=== PATIENT | female | born 1945 | race Caucasian/White ===

== ENCOUNTER 2019-11-24 09:57 | Outpatient (CLI) | payer MEDICARE, OTHER, SELFPAY ==
--- NOTE | 2019-11-24 10:15 | USCV_ITS ---
Kelsey Tuttle Age: 74 Gender: F : 1945 Exam Date: 11/24/2019 10:40 Ordering Phys: Ly Pantoja Technologist: BRUNO RICHARDSON [place]am Location: [facility] [place] Indication: HISTORY: PATIENT HAD ABLATION DONE 2017. POSSIBLE ACCESSORY VEIN NOTED ON LEFT LOWER EXTREMITY. PROCEDURES: FINDINGS: There is no evidence of bilateral deep vein thrombosis. No evidence of superficial thrombosis in the bilateral saphenous system. No evidence of reflux was noted in the bilateral deep venous system. No venous reflux noted in the bilateral greater saphenous vein. No venous reflux noted in the bilateral small saphenous vein. CONCLUSIONS No evidence of DVT in the above-mentioned identifiable veins. No significant venous reflux either in the superficial or deep veins. The venous segments were of small caliber at the below-knee levels, bilaterally. Dr Kameron Muller MD FAC (Electronically Signed) Final Date: 25 November 2019 20:17 S
== END 2019-11-24 09:58 | disposition home or self-care (01) ==
LOC: US 09:59
PROVIDERS: Visit Provider Nurse Practitioner Family
DX: R60.0 Localized edema (principal)
CPT/HCPCS: 93970

== ENCOUNTER 2019-12-28 08:01 | Outpatient (CLI) | payer MEDICARE, OTHER, SELFPAY ==
--- NOTE | 2019-12-28 08:00 | USCV_ITS ---
TuttleKelsey Age: 74 Gender: F : 1945 Exam Date: 12/28/2019 08:26 Ordering Phys: Ly Pantoja Technologist: Exam Location: [facility] – [place]_ Indication: PAD Risk Factors: None Previous Vascular Surgery: None RIGHT LEFT BP: 184.0 / 80.00 BP: 164.0/ 80.00 0 0 Waveform Velocity (cm/s) Velocity (cm/s) Waveform Triphasic 141.2 Iliac Prox 148.1 Triphasic Triphasic 130.3 Iliac Mid 122.2 Triphasic Triphasic 123.1 Iliac Distal 122.2 Triphasic Triphasic 132.2 STITCH BONDING MACHINE TENDER HELPER 142.2 Triphasic Triphasic 173.8 SFA Prox 135.8 Triphasic Triphasic 153.9 SFA Mid 153.4 Triphasic Triphasic SFA Dist Triphasic 161.1 115.0 Triphasic 105.0 POP 102.5 Triphasic Biphasic 59.2 PARAPROFESSIONAL EDUCATION ASSISTANT 54.3 Biphasic Biphasic 70.4 DPA 54.3 Biphasic 1.0 PAM 1.0 FINDINGS Normal resting ABIs bilaterally Near normal arterial Doppler waveforms bilaterally Near normal Doppler flow velocities bilaterally CONCLUSIONS No significant arterial obstruction, based on the above findings Dr Kameron Muller MD [facility] (Electronically Signed) Final Date: 28 December 2019 19:03 S
[2019-12-28 09:53] LABS: Blood Urea Nitrogen 16 mg/dL (8-23); Calcium 9.8 mg/dL (8.5-10.5); Carbon Dioxide 26 mmol/L (22-29); Chloride 99 mmol/L (98-107); Glucose 211 mg/dL (65-115); Osmolality Calculated 287 mOsm/kg (285-295); Sodium 135 mmol/L (136-145)
[2019-12-28 09:59] LABS: Anion Gap 14.2 (5-19); Potassium 4.2 mmol/L (3.5-5.1)
== END 2019-12-28 08:02 | disposition home or self-care (01) ==
LOC: RAD 08:11
PROVIDERS: Visit Provider Nurse Practitioner Family
DX: I73.9 Peripheral vascular disease, unspecified (principal)
CPT/HCPCS: 36415; 80048; 93925

== ENCOUNTER → 2020-01-26 11:13 | Outpatient (BNVA) | payer MEDICARE, OTHER, SELFPAY | PROVIDERS: PCP Family Medicine; Visit Provider Nurse Practitioner Family | DX: N18.32 Chronic kidney disease, stage 3b (principal); I73.9 Peripheral vascular disease, unspecified | CPT/HCPCS: 80048 ==

== ENCOUNTER → 2020-02-01 11:34 | Outpatient (BNVA) | payer MEDICARE, OTHER, SELFPAY | PROVIDERS: PCP Family Medicine; Visit Provider Internal Medicine Cardiovascular Disease | DX: N18.32 Chronic kidney disease, stage 3b (principal) | CPT/HCPCS: 80048 ==

== ENCOUNTER 2020-04-02 14:13 | Inpatient (IN) | payer MEDICARE, OTHER, SELFPAY ==
--- NOTE | 2020-04-02 14:40 | XR_ITS ---
WS: [id number] PORTABLE CHEST HISTORY: dyspnea COMPARISON: 01/16/2009 Bilateral opacifications in the mid and lower lung suero. Slightly greater opacification in the cent ral LEFT lung. No pleural effusion or pneumothorax. Cardiac size: Mildly enlarged cardiac silhouette. Mediastinum/Aorta: Mild atherosclerosis aorta. Osteopenia. XR/XR chest 1V portable [id number] IMPRESSION: Bilateral mid to lower lung opacifications likely pneumonia.
[2020-04-02 14:53] VITALS: BP 140/59; PULSE 104; RESP 22; TEMP 36.5; O2SAT 83; BMI 38.9
[2020-04-02 14:58] VITALS: O2SAT 95
--- NOTE | 2020-04-02 15:03 | W.ED.COVID ---
HPI - COVID General: Chief Complaint: ER Hold Stated Complaint: COVID +, LOW OXYGEN LEVELS Time Seen by Provider: 04/02/20 14:40 Triage information: Has fever, cough or shortness of breath. Exposure to COVID + person last 14 days History of Present Illness: HPI Narrative: 63 yo female presents emergency room complaining of worsening shortness of breath. Oxygen saturations on arrival are 83% on room air. She has fatigue body ache chest pain cough fever x1 week she initially tested positive on 03/31/2020. States she usually is not on oxygen and is progressively had more and more shortness of breath to the point when she arrives here today she is requiring 6 L and still struggling to keep her oxygen levels at 90%. She denies any chest pain. She initially had some diarrhea but she is not had much for intake so that has decreased as well. MD complaint: known COVID positive Prior testing date: 03/31/20 COVID 19 common symptoms: positive fever(s), chills, cough, non-productive cough, dyspnea, fatigue, body aches, nasal congestion, nausea, vomiting and diarrhea COVID 19 other sytmptoms: positive requiring oxygen; negative chest pain Onset (ago): day(s) Severity: moderate Pertinent comorbid conditions: diabetes, hypertension, heart disease and COPD/respiratory disease Treatment prior to arrival: acetaminophen, ibuprofen and steroids COVID Results: No Data to Display Review of Systems Const: Reports: fever(s), chills, body aches and fatigue ENMT: Reports: nasal congestion Card: Denies: chest pain, edema, dyspnea on exertion or orthopnea Resp: Reports: dyspnea and non-productive cough GI: Reports: nausea, vomiting and diarrhea : Denies: flank pain, difficulty voiding, dysuria, urinary frequency or urinary urgency Skin/Breast: Denies: rash or pruritus PFSH ED PFSH: Medical History Carotid artery stenosis Chronic kidney disease (CKD) stage G3b/A1, moderately decreased glomerular filtration rate (GFR) between 30-44 mL/min/1.73 square meter and albuminuria creatinine ratio less than 30 mg/g Diabetes mellitus GERD (gastroesophageal reflux disease) Hyperkalemia Hospitalized at [facility] for potassium 6.9, spironolactone discontinued, GFR 36. IBS (irritable bowel syndrome) LBBB (left bundle branch block) Osteoporosis PVD (peripheral vascular disease) Varicose veins of left lower extremity with other complications Surgical History S/P cataract extraction S/P cholecystectomy S/P hysterectomy S/P knee surgery Right Family History Brother CAD (coronary artery disease) Mother CAD (coronary artery disease) Denies family history of Diabetes Clotting disorder Dementia Hyperlipidemia Psychiatric illness Chronic kidney disease (CKD) Suicide Anesthesia complication Bleeding disorder Family history of premature coronary artery disease Lung disease Cancer Hypertension Stroke Social History Smoking and tobacco status: never smoked Alcohol intake: never Physical Exam Const: GENERAL APPEARANCE: cooperative and comfortable ORIENTATION/CONSCIOUSNESS: Yes awake, Yes oriented to person, Yes oriented to place and Yes oriented to time HENMT: COMMON NORMALS: normocephalic, atraumatic and hearing grossly normal bilaterally HEAD & SCALP: normocephalic and atraumatic Neck/C-Spine: COMMON NORMALS: no JVD Resp: AUSCULTATION: rales, rhonchi and wheezes Cardio: COMMON NORMALS: no JVD, regular rhythm and No murmurs present (Cardio) RATE: tachycardic RHYTHM: regular rhythm GI: COMMON NORMALS: Soft to palpation and No hepatosplenomegaly present AUSCULTATION: Yes normoactive bowel sounds PALPATION: Yes Soft to palpation, No Tenderness to palpation present (GI), No Guarding due to palpation present (GI) and Yes No hepatosplenomegaly present Extremity: COMMON NORMALS: normal to inspection, capillary refill normal, no clubbing, cyanosis or edema, no calf tenderness and no pedal edema Neuro: SENSORIUM/ORIENTATION: Yes oriented to person, Yes oriented to place and Yes oriented to time Skin: COMMON NORMALS: no rashes or lesions noted GENERAL SKIN EXAM: no rashes or lesions noted Course Vital Signs: Vital signs: Vital Signs Temperature 98.1 F 04/04/20 03:51 Pulse Rate 120 H 04/04/20 06:06 Respiratory Rate 24 H 04/04/20 06:06 Blood Pressure 107/59 04/04/20 02:45 Pulse Oximetry 95 04/04/20 06:06 MDM - COVID MDM Narrative: Medical decision making narrative: Patient will require ICU admission. Will make attempts to admit to our VICU however the VICU iis quite full at the moment. I discussed Dr. Kidd is willing to take the patient working to find a bed space in the VQ. I am not comfortable with her being on the floor at this point I think she most likely will continue to progress and will require aggressive interventions in the near future. Start her on remdesivir and steroids. Lab Data: Labs: Lab Results 04/02/20 04/02/20 04/02/20 Range/Units 14:40 14:40 14:40 WBC Cancelled Corrected WBC Cancelled RBC Cancelled Hgb Cancelled Hct Cancelled MCV Cancelled MCH Cancelled MCHC Cancelled RDW Cancelled Plt Count Cancelled MPV Cancelled Gran % Cancelled Neut % (Auto) Cancelled Lymph % (Auto) Cancelled [place] % (Auto) Cancelled Eos % (Auto) Cancelled Baso % (Auto) Cancelled Neut # (Auto) Cancelled Lymph # (Auto) Cancelled [place] # (Auto) Cancelled Eos # (Auto) Cancelled Baso # (Auto) Cancelled Absolute Gran (aut o) Cancelled Nucleated RBC % (a uto) Cancelled Nucleated RBCs # Cancelled D-Dimer 5.42 H (0-0.59) ug/mIFE U Specimen Type Sample Site ABG pH (7.35-7.45) ABG pCO2 (35-45) mmHg ABG pO2 (80.0-100.0) mmH g ABG HCO3 (22-26) mmol/L ABG O2 Saturation ABG Base Excess (-2.0-2.0) mmol/ L Bruce Test A-a O2 Gradient (5-10) mmHg Hematocrit (37-47) % Hgb O2 Saturation (95-100) % Carboxyhemoglobin (0.4-20.1) %THgb Methemoglobin (0.4-1.5) % Total Hemoglobin (12-16) g/dL Ionized Calcium (1.1-1.4) mmol/L O2 Delivery Device O2 Liters/Min % FiO2 % Neurology Epilepsy Physician ID Sodium 130 L (136-145) mmol/L Potassium 3.9 (3.5-5.1) mmol/L Chloride 97 L (98-107) mmol/L Carbon Dioxide 20 L (22-29) mmol/L Anion Gap 16.9 (5-19) BUN 28 H (8-23) mg/dL Creatinine 1.5 H (0.5-0.9) mg/dL GFR Calculation Not Reportable Glucose 198 H (65-115) mg/dL Calculated Osmolal ity 281 L (285-295) mOsm/k g Lactic Acid (0.5-2.2) mmol/L Calcium 8.8 (8.5-10.5) mg/dL Total Bilirubin 0.3 (0.15-1.2) mg/dL AST 33 H (0-32) U/L ALT 32 (0-33) U/L Alkaline Phosphata se 79 (35-105) IU/L C-Reactive Protein 43.0 H (0.0-4.9) mg/L Total Protein 6.6 (6.6-8.7) g/dL Albumin 3.1 L (3.5-5.2) g/dL Globulin 3.5 (1.3-4.6) g/dL 04/02/20 04/02/20 04/02/20 Range/Units 15:22 16:00 16:00 WBC 13.7 H Corrected WBC RBC 4.16 Hgb 12.8 Hct 38.3 MCV 92.1 MCH 30.8 MCHC 33.4 RDW 11.9 L Plt Count 280 MPV 8.5 Gran % Neut % (Auto) 93.8 Lymph % (Auto) 2.8 [place] % (Auto) 2.6 Eos % (Auto) 0.0 Baso % (Auto) 0.1 Neut # (Auto) 12.87 H Lymph # (Auto) 0.4 L [place] # (Auto) 0.4 Eos # (Auto) 0.0 Baso # (Auto) 0.0 Absolute Gran (aut o) Nucleated RBC % (a uto) 0 Nucleated RBCs # 0.0 D-Dimer (0-0.59) ug/mIFE U Specimen Type Arterial Sample Site Radial, left ABG pH 7.42 (7.35-7.45) ABG pCO2 32.1 L (35-45) mmHg ABG pO2 73.3 L (80.0-100.0) mmH g ABG HCO3 20.6 L (22-26) mmol/L ABG O2 Saturation 96.0 ABG Base Excess -3.1 L (-2.0-2.0) mmol/ L Bruce Test Pos A-a O2 Gradient 77.9 H (5-10) mmHg Hematocrit 43.4 (37-47) % Hgb O2 Saturation 94.6 L (95-100) % Carboxyhemoglobin 1.0 (0.4-20.1) %THgb Methemoglobin 0.4 (0.4-1.5) % Total Hemoglobin 14.1 (12-16) g/dL Ionized Calcium 1.2 (1.1-1.4) mmol/L O2 Delivery Device Nrb O2 Liters/Min 15.0 % FiO2 100.0 % Neurology Epilepsy Physician ID Ed Sodium 134.0 (136-145) mmol/L Potassium 4.1 (3.5-5.1) mmol/L Chloride (98-107) mmol/L Carbon Dioxide (22-29) mmol/L Anion Gap (5-19) BUN (8-23) mg/dL Creatinine (0.5-0.9) mg/dL GFR Calculation Glucose 195.0 H (65-115) mg/dL Calculated Osmolal ity (285-295) mOsm/k g Lactic Acid 1.8 (0.5-2.2) mmol/L Calcium (8.5-10.5) mg/dL Total Bilirubin (0.15-1.2) mg/dL AST (0-32) U/L ALT (0-33) U/L Alkaline Phosphata se (35-105) IU/L C-Reactive Protein (0.0-4.9) mg/L Total Protein (6.6-8.7) g/dL Albumin (3.5-5.2) g/dL Globulin (1.3-4.6) g/dL COVID Results: No Data to Display Discharge Plan Discharge Patient Disposition: Admitted As Inpatient Admit Provider: Janeth Kidd Clinical Impression: Pneumonia due to 2019-nCoV, Diabetes mellitus, Chronic kidney disease (CKD) stage G3b/A1, moderately decreased glomerular filtration rate (GFR) between 30-44 mL/min/1.73 square meter and albuminuria creatinine ratio less than 30 mg/g Condition: Stable Coding Level of Care Code ED Arranger Assembler for g Fwd Exam Comprehensive
[2020-04-02 15:28] LABS: ABG PCO2 32.1 mmHg (35-45); ABG PH Result 7.42 (7.35-7.45); Arterial Blood Gas Hematocrit 43.4 % (37-47); Base Excess ABG -3.1 mmol/L (-2.0-2.0); Blood Gas Allen Test Pos; Blood Gas Sample Type Arterial; HCO3 ABG 20.6 mmol/L (22-26); HGB O2 Sat 94.6 % (95-100); Ionized Calcium Level - ABG 1.2 mmol/L (1.1-1.4); Methemoglobin 0.4 % (0.4-1.5); PO2 ABG 73.3 mmHg (80.0-100.0); Potassium Level - ABG 4.1 mmol/L (3.5-5.0); Total Hemoglobin 14.1 g/dL (12-16)
[2020-04-02 15:30] LABS: Alveolar-Arterial Oxygen Gradi 77.9 mmHg (5-10); Blood Gas Operator Identificat ED; Blood Gas Sample Site Radial, left; Oxygen Device NRB
[2020-04-02 15:42] LABS: Alanine Aminotransferase 32 U/L (0-33); Albumin Level 3.1 g/dL (3.5-5.2); Alkaline Phosphatase 79 IU/L (35-105); Anion Gap 16.9 (5-19); Aspartate Amino Transferase 33 U/L (0-32); Blood Urea Nitrogen 28 mg/dL (8-23); Calcium 8.8 mg/dL (8.5-10.5); Carbon Dioxide 20 mmol/L (22-29); Chloride 97 mmol/L (98-107); Globulin 3.5 g/dL (1.3-4.6); Glucose 198 mg/dL (65-115); Osmolality Calculated 281 mOsm/kg (285-295); Potassium 3.9 mmol/L (3.5-5.1); Sodium 130 mmol/L (136-145); Total Bilirubin 0.3 mg/dL (0.15-1.2); Total Protein 6.6 g/dL (6.6-8.7)
[2020-04-02 15:46] LABS: D Dimer 5.42 ug/mIFEU (0-0.59)
--- NOTE | 2020-04-02 16:04 | CTR_ITS ---
PROCEDURE INFORMATION: Exam: CT Angiography Chest With Contrast Exam date and time: 04/02/2020 5:38 PM Age: 74 years old Clinical indication: Shortness of breath; Additional info: Elevated d dimer TECHNIQUE: Imaging protocol: Computed tomographic angiography of the chest with intravenous contrast. 3D rendering (Not supervised by radiologist): MIP and/or 3D reconstructed images were created by the technologist. Total images: 860 Radiation optimization: All CT scans at this facility use at least one of these dose optimization techniques: automated exposure control; mA and/or kV adjustment per patient size (includes targeted exams where dose is matched to clinical indication); or iterative reconstruction. Contrast material: VISI 320; Contrast volume: 55 ml; Contrast route: INTRAVENOUS (IV); COMPARISON: CR XR chest 1V portable [id number] 04/02/2020 2:44 PM RADIATION DOSE METRICS: Total DLP (mGy-cm): 571.23 FINDINGS: Pulmonary arteries: No visible evidence of pulmonary embolism/pulmonary arterial thrombus. Aorta: The thoracic aorta is nonaneurysmal. Mild arterial sclerotic disease. No visible intimal flap or dissection. Lungs: Bilateral patches of ground-glass interstitial lung disease with evidence of early consolidation consistent with active interstitial pneumonitis/pneumonia. Overall pattern presentation would be consistent with Covid-19 pneumonitis/pneumonia in the appropriate clinical presentation. Pleural space: Unremarkable. No pneumothorax. No pleural effusion. Heart: Cardiomegaly. No visible pericardial effusion. Mild coronary artery disease. Mediastinal space: Diaphragmatic hernia of Bochdalek's containing a large hiatal hernia. Lymph nodes: Few marginally prominent mediastinal and hilar lymph nodes most likely reactive. Adrenals: Small 12 mm left adrenal adenoma. No follow-up recommended. Right adrenal gland unremarkable. Kidneys and ureters: Small 10 mm extra cortical structure superior pole right kidney. Unable to differentiate cystic from solid. Consideration might be given to non urgent/nonemergent follow-up ultrasound of the kidney to assess cyst versus solid. There is a small simple appearing cyst at the equator measuring approximately 10 mm. Bones/joints: No visible active or acute osseous pathology. Degenerative disease and degenerative disc disease of the spine with increased kyphosis and osteopenia/osteoporosis. Soft tissues: Obesity. Other findings: Obesity. Increased quantum mottle artifact which degrades image quality in detail. CT/CT angio chest PE protcl [id number] IMPRESSION: 1. No visible evidence of pulmonary embolism/pulmonary arterial thrombus. 2. Bilateral patches of ground-glass interstitial lung disease with evidence of early consolidation consistent with active interstitial pneumonitis/pneumonia. Overall pattern presentation would be consistent with Covid-19 pneumonitis/pneumonia in the appropriate clinical presentation. 3. Small 12 mm left adrenal adenoma. No follow-up recommended. 4. Diaphragmatic hernia of Bochdalek's containing a large hiatal hernia. 5. Few marginally prominent mediastinal and hilar lymph nodes most likely reactive. 6. Cardiomegaly with mild coronary artery disease. 7. Small 10 mm extra cortical structure superior pole right kidney. Unable to differentiate cystic from solid. Consideration might be given to non urgent/nonemergent follow-up ultrasound of the kidney to assess cyst versus solid. 8. Other nonurgent, nonemergent, chronic, and age related findings as detailed in text above. COMMENTS: Consistent with the [employer]'s Incidental Findings Committee white paper (J Am Rose Radiol 2018): Any incidental renal lesion less than 1 cm or classified as too small to characterize, or any incidental cystic renal lesion characterized as simple-appearing, is likely benign. No follow-up imaging is recommended for these lesions per consensus recommendations based on imaging criteria. Radiation Dose CTDIVOL = (mGy): DLP = 571.23 (mGy-cm)
[2020-04-02 16:07] LABS: Basophils % 0.1 %; Hematocrit 38.3 % (37.0-47.0); Hemoglobin 12.8 g/dL (11.5-15.3); Lymphocytes # 0.4 10^3/uL (0.8-4.8); Lymphocytes % 2.8 %; Mean Corpuscular HGB Conc 33.4 g/dL (30.0-36.0); Mean Corpuscular Hemoglobin 30.8 pg (28.0-34.0); Mean Corpuscular Volume 92.1 fL (81-99); Mean Platelet Volume 8.5 fL (7.4-10.4); Monocytes # 0.4 10^3/uL (0.2-0.9); Monocytes % 2.6 %; Neutrophils # 12.87 10^3/uL (1.8-7.7); Neutrophils % 93.8 %; Nucleated Red Blood Cells % 0 %; Platelet Count 280 10^3/cmm (130-400); Red Blood Count 4.16 10^6/uL (4.1-5.3); Red Cell Distribution Width 11.9 % (12.1-15.1); White Blood Count 13.7 10^3/uL (4.0-10.0)
[2020-04-02 16:34] LABS: Lactic Sepsis W/Reflex 1.8 mmol/L (0.5-2.2)
[2020-04-02] MEDS: dexamethasone 4 mg/mL INJ 6 MG IVP (17:52)
[2020-04-02] MEDS: remdesivir 200 MG in sodium chloride 0.9% (100 ml) 100 ML 100 MG IV (17:52)
[2020-04-02] MEDS: iodixanol 320 mg/mL 100mL Btl IV (18:07)
--- NOTE | 2020-04-02 18:54 | P.HP_ITS ---
Providers/Chief Complaint Primary Care Provider: Jannie Nazario DO Chief Complaint: COVID +, LOW OXYGEN LEVELS History of Present Illness 72-year-old female with a past medical history significant for hypertension, dyslipidemia, diabetes mellitus, peripheral vascular disease, carotid arterial stenosis, gastroesophageal reflux disease, irritable bowel syndrome, osteoporosis, bilateral lower extremity venous insufficiency and COVID-19 in fection diagnosed on March 31, 2020 who has presented to the hospital with low oxygen saturations. Patient stated that she was monitoring her O2 sats at home. Noted hypoxia with O2 sats as low as 80%. Upon arrival to hospital she was noted to be 83%. She was requiring initially 6 L via nasal cannula however then replaced with non-rebreather. This is associated with fever, chills, nausea, vomiting and generalized weakness. She also noted a mildly productive cough. Laboratory workup on arrival showed a WBC of 13.7, hemoglobin of 12.8, hematocrit 38.3 and a platelet count of 280. D-dimer was elevated at 5.42. Sodium 130, potassium 3.9, chloride 97, bicarb 20, BUN 28 and creatinine of 1.5. Prior creatinine was 1.2 in January of 2020. lactic acid of 1.8. Arterial blood gases showed a pH of 7.42, pCO2 of 32.1, PO2 of 73.3 and a bicarb of 20.6. Chest x-ray showed mid to lower lung opacification bilaterally. CT chest PE protocol showed bilateral patchy ground-glass interstitial infiltrates bilaterally with evidence of early consolidation consistent of active interstitial pneumonitis / pneumonia. No acute pulmonary embolism is noted. Patient was admitted to hospital for further work up and treatment. In ER patient was started on Decadron 6 mg IV x 1, Remdesivir 200 mg IV x 1, and loenox 100 mg SQ x 1. Review of Systems General: Reports: 10 or more systems reviewed and unremarkable except in HPI and below Medications/Allergies Home Medications Medication Instructions Recorded Confirmed Last Taken Type aspirin 81 mg tablet,delayed 81 mg PO DAILY@0900 06/19/19 04/02/20 04/01/20 History release famotidine 40 mg tablet 40 mg PO BID@0900,199906/19/19 04/02/20 04/02/20 History lansoprazole 30 mg capsule,delayed 30 mg PO DAILY@0900 06/19/19 04/02/20 04/02/20 History release meclizine 25 mg tablet 25 mg PO DAILY PRN 06/19/19 04/02/20 Unknown History ondansetron HCl 4 mg tablet 4 mg PO Q8H PRN 06/19/19 04/02/20 04/02/20 History ropinirole 5 mg tablet 5 mg PO DAILY PRN 06/19/19 04/02/20 Unknown History metoprolol succinate 50 mg 25 mg PO DAILY@0900 tab 09/12/19 04/02/20 04/02/20 History tablet,extended release 24 hr simvastatin 20 mg tablet 20 mg PO .COMPLEX 09/12/19 04/02/20 04/01/20 History meloxicam 15 mg tablet 15 mg PO DAILY PRN tab 11/06/19 04/02/20 Unknown History semaglutide 0.5 mg SUBCUT Q7D ml 11/06/19 04/02/20 04/01/20 History amlodipine 10 mg tablet 10 mg PO DAILY@0900 tab 12/19/19 04/02/20 04/02/20 History furosemide 20 mg tablet 20 mg PO DAILY@0912/19/19 04/02/20 04/02/20 History glimepiride 4 mg tablet 4 mg PO BID@0800,1999 tab 12/19/19 04/02/20 04/02/20 History lisinopril 5 mg tablet 2.5 mg PO BID@0900,1999 tab 12/19/19 04/02/20 04/02/20 History acetaminophen [Tylenol] 325 - 650 mg PO Q4H PRN 04/02/20 04/02/20 Unknown History cilostazol 50 mg PO BID@0900,199904/02/20 04/02/20 04/02/20 History doxycycline hyclate See Rx Instructions .ROUTE .COMPLEX 04/02/20 04/02/20 04/02/20 History ferrous gluconate 325 mg PO DAILY@89904/02/20 04/02/20 04/02/20 History prednisone 40 mg PO DAILY@0904/02/20 04/02/20 04/02/20 History Allergies Allergy/AdvReac Type Severity Reaction Status Date / Time No Known Allergies Allergy Verified 01/26/20 10:16 PFSH Acute PFSH: Medical History Carotid artery stenosis Chronic kidney disease (CKD) stage G3b/A1, moderately decreased glomerular filtration rate (GFR) between 30-44 mL/min/1.73 square meter and albuminuria creatinine ratio less than 30 mg/g Diabetes mellitus GERD (gastroesophageal reflux disease) Hyperkalemia Hospitalized at [facility] for potassium 6.9, spironolactone discontinued, GFR 36. IBS (irritable bowel syndrome) LBBB (left bundle branch block) Osteoporosis PVD (peripheral vascular disease) Varicose veins of left lower extremity with other complications Surgical History S/P cataract extraction S/P cholecystectomy S/P hysterectomy S/P knee surgery Right Family History Brother CAD (coronary artery disease) Mother CAD (coronary artery disease) Denies family history of Diabetes Clotting disorder Dementia Hyperlipidemia Psychiatric illness Chronic kidney disease (CKD) Suicide Anesthesia complication Bleeding disorder Family history of premature coronary artery disease Lung disease Cancer Hypertension Stroke Social History Smoking and tobacco status: never smoked Alcohol intake: never Vitals/I&O/Wt Last Vital Signs Temp 97.7 F 04/02/20 14:53 Pulse 104 H 04/02/20 14:53 Resp 22 H 04/02/20 14:53 BP 140/59 04/02/20 14:53 Pulse Ox 83 L 04/02/20 14:53 Weight last 48 hrs Weight 99.79 kg Physical Exam Narrative: EXAM NARRATIVE: General: Alert awake on NRB HEENT :Grossly unremarkable CVS: Sinus tachycardia Chest : Mildly labored respiration ABD : Soft Ext : Mild edema bilatrally Data : 04/02/20 16:00 04/02/20 14:40 A&P Assessment and plan (1) Acute respiratory failure with hypoxia: Status: Acute (2) Pneumonia due to 2019-nCoV: Status: Acute (3) Acute worsening of stage 3 chronic kidney disease: Status: Acute (4) Hyponatremia: Status: Acute (5) Leukocytosis: Status: Acute Acute hypoxic respiratory failure due to covid-19 pneumonia - COVID-19 dx on 03/31/2020 - Chest x-ray / CTA Chest - b/l ground glass opacities, no PE - Supplemental o2 as needed to maintain o2 sats above 90% - May require HFNC vs BiPAP - Will continue remdesivir 100 mg IV daily x additional 4 days - Decadron 6 mg IV daily x total 10 days - Emperically started on eliquis 2.5 mg PO BID - S/p Lovenox 100 mg SQ x 1 in ER - Rocephin 2g IV daily - Azithromycin 500 mg IV daily - Ferritin, CRP, D-Dimer, Pro-seun in AM - Repeat ABG/Chest -xray in am Acute on chronic stage 3 kidney disease - Creatinine 1.2-1.3 - Now increased to 1.5 - Repeat BMP in am - Renally dose medication - Monitor urine output GI ppx - PPI DVT ppx - Eliquis 2.5 mg PO BID Attestations Medical Necessity Statement*: Patient will likely require over 2 midnight stay in hospital for eval and treatment of acute hypoxic respiratory failure due to COVID-19 pneumonia Time Spent in Patient Care: Greater than 35 minutes (>than 50% of time spent in counselling and/or direct pt care on unit) . Coding Level of Care Code Acute Machine Icer for [facility] 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
[2020-04-02 19:21] VITALS: BP 129/49; PULSE 96; RESP 27; O2SAT 92
[2020-04-02 20:15] VITALS: PULSE 80; O2SAT 100
[2020-04-02] MEDS: famotidine 20 mg Tablet 40 MG PO (21:59)
[2020-04-02 22:09] LABS: Glucose Point of Care 435 mg/dL (70-110)
--- NOTE | 2020-04-02 23:40 | PC.NURSE ---
Patient is boarding in the emergency department at this time. Patient has been resting comfortably. Patient is on heated high flow oxygen at 12L. Patient breathing rate ranges between 21 to 22 respirations per minute, non-labored. Patient has no visible sores or skin breakdown, skin is dry. Patient is able to get up on her own but would recommend stand by assistance to bedside commode. Patient gets tired while getting up.
[2020-04-03] VITALS (193 sets, daily range): BP systolic 86–188; BP diastolic 40–104; PULSE 65–123; RESP 11–34; TEMP 36.9–37.7; O2SAT 56–98
[2020-04-03] MEDS: atorvastatin 40 mg Tablet 20 MG PO ×2 (00:02→22:42)
[2020-04-03] MEDS: cilostazol 100 mg Tablet 50 MG PO ×3 (00:02→22:44)
[2020-04-03] MEDS: enoxaparin 100 mg/mL Syringe SUBCUT (00:13)
[2020-04-03 04:42] LABS: ABG PCO2 38.6 mmHg (35-45); ABG PH Result 7.39 (7.35-7.45); Arterial Blood Gas Hematocrit 42.4 % (37-47); Base Excess ABG -1.1 mmol/L (-2.0-2.0); Blood Gas Allen Test Pos; Blood Gas Sample Site Radial, right; Blood Gas Sample Type Arterial; HCO3 ABG 23.6 mmol/L (22-26); Oxygen Device NC; PO2 ABG 72.5 mmHg (80.0-100.0)
[2020-04-03 06:31] LABS: Basophils % 0.1 %; Hematocrit 41.6 % (37.0-47.0); Hemoglobin 13.5 g/dL (11.5-15.3); Lymphocytes # 0.8 10^3/uL (0.8-4.8); Mean Corpuscular HGB Conc 32.5 g/dL (30.0-36.0); Mean Corpuscular Volume 95.4 fL (81-99); Mean Platelet Volume 8.7 fL (7.4-10.4); Monocytes # 0.5 10^3/uL (0.2-0.9); Monocytes % 3.6 %; Neutrophils # 11.36 10^3/uL (1.8-7.7); Neutrophils % 89.7 %; Nucleated Red Blood Cells % 0 %; Platelet Count 301 10^3/cmm (130-400); Red Blood Count 4.36 10^6/uL (4.1-5.3); Red Cell Distribution Width 11.9 % (12.1-15.1); White Blood Count 12.7 10^3/uL (4.0-10.0)
[2020-04-03 07:28] LABS: D Dimer 0.91 ug/mIFEU (0-0.59)
[2020-04-03 07:55] LABS: Lactate (Lactic Acid level) 1.9 mmol/L (0.5-2.2)
[2020-04-03 08:10] LABS: Estmated Average Glucose 209; Hemoglobin A1C 8.9 % (4.0-6.0)
[2020-04-03 08:22] LABS: Ferritin 1261 ng/mL (15-150)
[2020-04-03 08:36] LABS: Alanine Aminotransferase 28 U/L (0-33); Albumin Level 2.7 g/dL (3.5-5.2); Alkaline Phosphatase 70 IU/L (35-105); Aspartate Amino Transferase 28 U/L (0-32); Blood Urea Nitrogen 39 mg/dL (8-23); Calcium 8.9 mg/dL (8.5-10.5); Carbon Dioxide 15 mmol/L (22-29); Chloride 99 mmol/L (98-107); Globulin 3.6 g/dL (1.3-4.6); Glucose 282 mg/dL (65-115); Osmolality Calculated 298 mOsm/kg (285-295); Sodium 134 mmol/L (136-145); Total Bilirubin 0.2 mg/dL (0.15-1.2); Total Protein 6.3 g/dL (6.6-8.7)
[2020-04-03 08:47] LABS: Anion Gap 24.5 (5-19); Potassium 4.5 mmol/L (3.5-5.1)
[2020-04-03] MEDS: pantoprazole DR 40 mg Tablet PO (09:05)
[2020-04-03] MEDS: apixaban 5 mg Tablet 2.5 MG PO ×2 (09:05→17:42)
[2020-04-03] MEDS: amlodipine 10 mg Tablet PO (09:05)
[2020-04-03] MEDS: aspirin 81 mg EC Tablet PO (09:07)
[2020-04-03] MEDS: ondansetron 2 mg/ML SDV 2 mL 4 MG IVP (09:08)
[2020-04-03] MEDS: ferrous gluconate 324 mg Tablet PO (09:48)
[2020-04-03] MEDS: metoprolol succinate ER (24 HR) 25 mg Tablet PO (09:49)
[2020-04-03] MEDS: famotidine 20 mg Tablet 40 MG PO ×2 (09:49→22:43)
[2020-04-03] MEDS: FUROsemide 20 mg Tablet PO (09:49)
[2020-04-03 11:56] LABS: Glucose Point of Care 307 mg/dL (70-110)
--- NOTE | 2020-04-03 13:45 | PM.PN ---
Subjective Subjective: Interval history: 72-year-old female with a past medical history significant for hypertension, dyslipidemia, diabetes mellitus, peripheral vascular disease, carotid arterial stenosis, gastroesophageal reflux disease, irritable bowel syndrome, osteoporosis, bilateral lower extremity venous insufficiency and COVID-19 infection diagnosed on March 31, 2020 who has presented to the hospital with low oxygen saturations. Patient stated that she was monitoring her O2 sats at home. Noted hypoxia with O2 sats as low as 80%. Upon arrival to hospital she was noted to be 83%. She was requiring initially 6 L via nasal cannula however then replaced with non-rebreather. This is associated with fever, chills, nausea, vomiting and generalized weakness. She also noted a mildly productive cough. Laboratory workup on arrival showed a WBC of 13.7, hemoglobin of 12.8, hematocrit 38.3 and a platelet count of 280. D-dimer was elevated at 5.42. Sodium 130, potassium 3.9, chloride 97, bicarb 20, BUN 28 and creatinine of 1.5. Prior creatinine was 1.2 in January of 2020. lactic acid of 1.8. Arterial blood gases showed a pH of 7.42, pCO2 of 32.1, PO2 of 73.3 and a bicarb of 20.6. Chest x-ray showed mid to lower lung opacification bilaterally. CT chest PE protocol showed bilateral patchy ground-glass interstitial infiltrates bilaterally with evidence of early consolidation consistent of active interstitial pneumonitis / pneumonia. No acute pulmonary embolism is noted. Patient was admitted to hospital for further work up and treatment. In ER patient was started on Decadron 6 mg IV x 1, Remdesivir 200 mg IV x 1, and loenox 100 mg SQ x 1. 04/03 No sig improvement, increasing 02 requiremets Vitals/I&O/Wt Last Vital Signs Temp 98.2 F 04/04/20 00:22 Pulse 83 04/04/20 00:21 Resp 18 04/04/20 00:21 BP 188/101 04/03/20 20:05 Pulse Ox 96 04/04/20 00:21 04/03/20 04/03/20 04/04/20 14:59 22:59 06:59 Intake Total 350 / 350 300 / 650 Output Total 100 / 100 Balance 250 / 250 300 / 550 Weight last 48 hrs Weight 99.79 kg Physical Exam Narrative: EXAM NARRATIVE: General: Alert awake on NRB HEENT :Grossly unremarkable CVS: Sinus tachycardia Chest : Mildly labored respiration ABD : Soft Ext : Mild edema bilatrally Data : 04/03/20 06:12 04/03/20 06:12 A&P Assessment and plan (1) Acute respiratory failure with hypoxia: Status: Acute (2) Pneumonia due to 2019-nCoV: Status: Acute (3) Acute worsening of stage 3 chronic kidney disease: Status: Acute (4) Hyponatremia: Status: Acute (5) Leukocytosis: Status: Acute Acute hypoxic respiratory failure due to covid-19 pneumonia - COVID-19 dx on 03/31/2020 - Chest x-ray / CTA Chest - b/l ground glass opacities, no PE - Supplemental o2 as needed to maintain o2 sats above 90% - May require HFNC vs BiPAP - Will continue remdesivir 100 mg IV daily x additional 4 days - Decadron 6 mg IV daily x total 10 days - Empirically started on eliquis 2.5 mg PO BID, - S/p Lovenox 100 mg SQ x 1 in ER - Rocephin 2g IV daily - Azithromycin 500 mg IV daily - Ferritin, CRP, D-Dimer, Pro-seun in AM - Repeat ABG/Chest -xray in am Acute on chronic stage 3 kidney disease - Creatinine 1.2-1.3 - Now increased to 1.5 - 1.8 - d/c lasix, hold metoprolol - Repeat BMP in am - Renally dose medication - Monitor urine output GI ppx - PPI DVT ppx - Eliquis 2.5 mg PO BID Attestations Medical Necessity Statement*: continue hospitalization for respiratory failure Time Spent in Patient Care: Greater than 35 minutes (>than 50% of time spent in counselling and/or direct pt care on unit). Coding Level of Care Code Acute Certified Master Locksmith for [facility] Diagnoses Acute respiratory failure with hypoxia J96.01 Pneumonia due to 2019-nCoV U07.1; J12.89 Acute worsening of stage 3 chronic kidney disease N18.30 Hyponatremia E87.1 Leukocytosis D72.829
[2020-04-03] MEDS: azithromycin 500 MG in sodium chloride 0.9% 250 ML 250 MG IV (16:39)
[2020-04-03] MEDS: dexamethasone 4 mg/mL INJ 6 MG IVP (16:39)
[2020-04-03] MEDS: sodium chloride 0.9% (100 ml) 100 ML (16:40)
[2020-04-03 17:23] LABS: Glucose Point of Care 301 mg/dL (70-110)
[2020-04-03] MEDS: cefTRIAXone 2,000 MG in sodium chloride 0.9% (plus) 50 ML 100 MG IV (17:42)
[2020-04-03] MEDS: remdesivir 100 MG in sodium chloride 0.9% (100 ml) 100 ML IV (18:38)
[2020-04-03 20:46] LABS: Glucose Point of Care 211 mg/dL (70-110)
[2020-04-04] VITALS (132 sets, daily range): BP systolic 66–137; BP diastolic 42–92; PULSE 77–155; RESP 9–36; TEMP 36.7–37; O2SAT 73–97; BMI 38.9
--- NOTE | 2020-04-04 04:56 | USCV_ITS ---
Kesley Tuttle Age: 74 Gender: F : 1945 Exam Date: 04/04/2020 13:02 Ordering Phys: Stephan Sy MD Technologist: John Whitfield Exam Location: [facility] [place] Indication: new afib BP: 122 / 80 HR: 87 Rhythm: Sinus Technical Quality: Technically difficult study MEASUREMENTS (Male / Female) Normal Values 2D ECHO LV Diastolic Diameter PLAX 3.9 cm 4.2 - 5.9 / 3.9 - 5.3 cm LV Systolic Diameter PLAX 2.4 cm IVS Diastolic Thickness 1.1 cm 0.6 - 1.0 / 0.6 - 0.9 cm IVS Systolic Thickness 1.8 cm LVPW Diastolic Thickness 1.2 cm 0.6 - 1.0 / 0.6 - 0.9 cm LVPW Systolic Thickness 1.3 cm LVOT Diameter 2.0 cm LV Ejection Fraction 2D Teich 71.2 % LV Ejection Fraction MOD 2C 57.7 % LV Ejection Fraction 2C AL 56.0 % LA Diameter 3.2 cm LA Width 3.8 cm LA Height 4.3 cm RA Width 3.3 cm RA Height 4.0 cm Aorta at Sinotubular Diameter 1.1 cm M-MODE LV Diastolic Diameter MM 4.4 cm 4.2 - 5.9 / 3.9 - 5.3 cm LV Systolic Diameter MM 3.4 cm LV Ejection Fraction MM Teich 46.7 % IVS Diastolic Thickness MM 1.7 cm 0.6 - 1.0 / 0.6 - 0.9 cm IVS Systolic Thickness MM 2.0 cm LVPW Diastolic Thickness MM 1.3 cm 0.6 - 1.0 / 0.6 - 0.9 cm LVPW Systolic Thickness MM 1.6 cm RV Diastolic Diameter MM 1.6 cm Aortic Annulus Diameter 3.1 cm LA Ao Ratio MM 1.0 DOPPLER AV Peak Velocity 125.0 cm/s LVOT Peak Velocity 108.0 cm/s AV Area Cont Eq vti 3.2 cm squared AV Area Cont Eq pk 2.7 cm squared MV Area PHT 5.0 cm squared Mitral E to A Ratio 0.7 MV E' Velocity 42.5 cm/s Mitral E to MV E' Ratio 13.9 Mitral E to LV E' Lateral Ratio 11.5 Mitral E to LV E' Septal Ratio 17.8 TR Peak Velocity 153.0 cm/s TR Peak Gradient 9.4 mmHg TV Peak E Velocity 104.0 cm/s Right Atrial Pressure 3.0 mmHg Pulmonary Artery Systolic Pressu 12.4 mmHg FINDINGS Left Ventricle This is technically very difficult study. Limited visualization of cardiac structures. LV systolic function is grossly normal. Regional wall motion abnormalities cannot be assessed because of limited visualization. LV dysfunction is present. Right Ventricle Not well-visualized. Right Atrium Not well-visualized Left Atrium Not well-visualized Mitral Valve Grossly normal. No mitral regurgitation is present. Aortic Valve Not well-visualized. No significant aortic stenosis or regurgitation is seen. Tricuspid Valve Not well-visualized Pulmonic Valve Not well-visualized Pericardium Limited visualization Aorta Grossly normal CONCLUSIONS Limited visualization of cardiac structures. LV systolic function is grossly normal. Regional wall motion abnormalities cannot be assessed because of limited visualization Grade 1 diastolic dysfunction is noted. Because of limited realization of cardiac structures, comparison cannot be made with prior echocardiogram. Ezequiel Jones MD (Electronically Signed) Final Date: 05 April 2020 18:47 S
--- NOTE | 2020-04-04 04:56 | ECG_ITS ---
[facility] ED Test Date: 2020-04-04 Pat Name: Kelsey Tuttle Department: Room: ICU19 Gender: Female Biologics Specialist: : 1945 Requested By: Stephan Sy Order Number: [id number] Miguel MD: Debbie Florez M.D. Measurements Intervals [place] Rate: 118 P: WA: QRS: -11 QRSD: 132 T: 148 QT: 332 QTc: 466 Interpretive Statements SINUS TACHYCARDIA WITH frequent PACs and atrial run LEFT BUNDLE BRANCH BLOCK [120+ ms QRS DURATION, 80+ ms Q/S IN V1/V2, 85+ ms R IN I/aVL/V5/V6] INTERPRETATION BASED ON A DEFAULT AGE OF 40 YEARS No previous ECG available for comparison Electronically Signed On 04-05-2020 13:52:20 HYBRID CAR MECHANIC by Debbie Florez M.D. [id number]
[2020-04-04 05:17] LABS: Glucose Point of Care 314 mg/dL (70-110)
[2020-04-04] MEDS: metoprolol tartrate 50 mg Tablet PO ×3 (05:20→20:52)
[2020-04-04 05:23] LABS: Basophils % 0.1 %; Hemoglobin 14.5 g/dL (11.5-15.3); Lymphocytes # 0.9 10^3/uL (0.8-4.8); Lymphocytes % 5.2 %; Mean Corpuscular HGB Conc 33.7 g/dL (30.0-36.0); Mean Corpuscular Hemoglobin 30.7 pg (28.0-34.0); Mean Corpuscular Volume 90.9 fL (81-99); Mean Platelet Volume 8.9 fL (7.4-10.4); Monocytes # 0.5 10^3/uL (0.2-0.9); Monocytes % 2.8 %; Neutrophils % 91.1 %; Nucleated Red Blood Cells % 0 %; Platelet Count 428 10^3/cmm (130-400); Red Blood Count 4.73 10^6/uL (4.1-5.3); Red Cell Distribution Width 11.9 % (12.1-15.1); White Blood Count 17.2 10^3/uL (4.0-10.0)
[2020-04-04 05:33] LABS: Alanine Aminotransferase 33 U/L (0-33); Alkaline Phosphatase 82 IU/L (35-105); Anion Gap 17.4 (5-19); Aspartate Amino Transferase 34 U/L (0-32); Blood Urea Nitrogen 49 mg/dL (8-23); Calcium 9.1 mg/dL (8.5-10.5); Carbon Dioxide 22 mmol/L (22-29); Chloride 98 mmol/L (98-107); Creatinine Clr Calc Pharmacy 27.7991; Globulin 3.8 g/dL (1.3-4.6); Glucose 219 mg/dL (65-115); Osmolality Calculated 296 mOsm/kg (285-295); Potassium 4.4 mmol/L (3.5-5.1); Sodium 133 mmol/L (136-145); Total Bilirubin 0.2 mg/dL (0.15-1.2); Total Protein 6.8 g/dL (6.6-8.7)
[2020-04-04] MEDS: metoprolol tartrate 1 mg/1 mL SDV 5 mL 5 MG IV (05:59)
[2020-04-04 06:24] LABS: Troponin(5th) Baseline 27 ng/L (0-10)
[2020-04-04 06:33] LABS: Magnesium 2.1 mg/dL (1.7-2.3); Thyroid Stimulating Hormone 0.71 uIU/mL (0.27-4.20)
--- NOTE | 2020-04-04 06:56 | ECG_ITS ---
[facility] ED Test Date: 2020-04-04 Pat Name: Kelsey Tuttle Department: Room: ICU19 Gender: Female Culinary Instructor: : 1945 Requested By: Stephan Sy Order Number: [id number] Miguel MD: Debbie Florez M.D. Measurements Intervals [place] Rate: 92 P: 75 MS: 136 QRS: -15 QRSD: 135 T: 142 QT: 397 QTc: 492 Interpretive Statements SINUS RHYTHM WITH OCCASIONAL SUPRAVENTRICULAR PREMATURE COMPLEXES LEFT BUNDLE BRANCH BLOCK [120+ ms QRS DURATION, 80+ ms Q/S IN V1/V2, 85+ ms R IN I/aVL/V5/V6] Compared to ECG 04/04/2020 04:45:52 No significant change Electronically Signed On 04-05-2020 13:57:09 DIE MAKER ELECTRONIC by Debbie Florez M.D. [id number]
[2020-04-04 07:41] LABS: Glucose Point of Care 254 mg/dL (70-110)
[2020-04-04] MEDS: ferrous gluconate 324 mg Tablet PO (08:10)
[2020-04-04] MEDS: amlodipine 10 mg Tablet PO (08:10)
[2020-04-04] MEDS: cilostazol 100 mg Tablet 50 MG PO ×2 (08:10→20:52)
[2020-04-04] MEDS: apixaban 5 mg Tablet 2.5 MG PO ×2 (08:11→18:53)
[2020-04-04] MEDS: pantoprazole DR 40 mg Tablet PO (08:11)
[2020-04-04] MEDS: famotidine 20 mg Tablet 40 MG PO ×2 (08:11→20:52)
[2020-04-04] MEDS: aspirin 81 mg EC Tablet PO (08:11)
[2020-04-04] MEDS: albuterol 8 gm MDI 2 PUFF INHALATION ×3 (09:00→19:47)
[2020-04-04 09:58] LABS: Troponin 5 2HR Delta 3.1 ABS# (0-10)
--- NOTE | 2020-04-04 10:56 | ECG_ITS ---
[facility] ED Test Date: 2020-04-04 Pat Name: Kelsey Tuttle Department: Room: ICU19 Gender: Female Life Sciences Director: : 1945 Requested By: Stephan Sy Order Number: [id number] Miguel MD: Debbie Florez M.D. Measurements Intervals [place] Rate: 74 P: 79 CT: 143 QRS: -7 QRSD: 136 T: 154 QT: 399 QTc: 445 Interpretive Statements SINUS RHYTHM WITH MARKED SINUS ARRHYTHMIA LEFT BUNDLE BRANCH BLOCK [120+ ms QRS DURATION, 80+ ms Q/S IN V1/V2, 85+ ms R IN I/aVL/V5/V6] Compared to ECG 04/04/2020 07:40:00 No significant changes Electronically Signed On 04-04-2020 21:31:00 PLASTER MACHINE OPERATOR by Debbie Florez M.D. [id number]
[2020-04-04 11:12] LABS: Glucose Point of Care 122 mg/dL (70-110)
--- NOTE | 2020-04-04 11:44 | P.PN_ITS ---
Subjective Subjective: Interval history: is complaining of SOb with minimal exertion. She has remained afebrile.Her other vitals and labs have been reviewed. Medications: Reviewed: Yes Vitals/I&O/Wt Last Vital Signs Temp 98.6 F 04/04/20 08:00 Pulse 78 04/04/20 09:04 Resp 22 H 04/04/20 09:03 BP 102/77 04/04/20 08:00 Pulse Ox 91 04/04/20 09:03 04/03/20 04/04/20 04/04/20 22:59 06:59 14:59 Intake Total 400 / 750 100 / 850 240 / 240 Output Total 150 / 250 150 / 150 Balance 250 / 500 100 / 600 90 / 90 Weight last 48 hrs Weight 99.79 kg Weight 99.79 kg Physical Exam Const: COMMON NORMALS: patient oriented x3 HENMT: COMMON NORMALS: normocephalic, atraumatic and hearing grossly normal bilaterally HEAD & SCALP: normocephalic and atraumatic Chest: COMMONS NORMALS: normal inspection of the chest CHEST: Yes Symmetrical chest wall rise Resp: OTHER: Rt basal crackles present. No wheezing no ronchii Cardio: COMMON NORMALS: regular rate, regular rhythm, S1 normal heart sound present, S2 normal heart sound present, No gallops present (Cardio), No murmurs present (Cardio), No rub (Cardio) and Peripheral pulses 2+ throughout RATE: regular rate RHYTHM: regular rhythm HEART SOUNDS: S1 normal heart sound present and S2 normal heart sound present PERIPHERAL PULSES: Peripheral pulses 2+ throughout GI: COMMON NORMALS: Normal to inspection, nondistended, normoactive bowel sounds present, Soft to palpation, non-tender, No hepatosplenomegaly present and no masses AUSCULTATION: Yes normoactive bowel sounds PALPATION: Yes Soft to palpation and Yes No hepatosplenomegaly present RECTAL EXAM: deferred Extremity: COMMON NORMALS: no clubbing, cyanosis or edema and no pedal edema Neuro: COMMON NORMALS: patient oriented x3 Data : 04/04/20 03:40 04/04/20 03:40 A&P Assessment and plan (1) Acute respiratory failure with hypoxia: Status: Acute (2) Pneumonia due to 2019-nCoV: Status: Acute (3) Acute worsening of stage 3 chronic kidney disease: Status: Acute (4) Hyponatremia: Status: Acute (5) Leukocytosis: Status: Acute Acute hypoxic respiratory failure due to covid-19 pneumonia - COVID-19 dx on 03/31/2020 - Chest x-ray / CTA Chest - b/l ground glass opacities, no PE - Supplemental o2 as needed to maintain o2 sats above 90% - May require HFNC vs BiPAP - Will continue remdesivir 100 mg IV daily x additional 4 days - Decadron 6 mg IV daily x total 10 days - Empirically started on eliquis 2.5 mg PO BID, - S/p Lovenox 100 mg SQ x 1 in ER - Rocephin 2g IV daily - Azithromycin 500 mg IV daily - Ferritin, CRP, D-Dimer, Pro-seun in AM - Repeat ABG/Chest -xray in am -1 bag Convalasent Plasma today Acute on chronic stage 3 kidney disease - Creatinine 1.2-1.3 - SCR :2 - d/c lasix, hold metoprolol - Repeat BMP in am - Renally dose medication - Monitor urine output GI ppx - PPI DVT ppx - Eliquis 2.5 mg PO BID Attestations Medical Necessity Statement*: Patient needs to be in hospital for the management of R/F 2/2 to COVID PNA Coding Level of Care Code Acute Machine I Engraver for [facility] Fwd Exam Detailed Diagnoses Acute respiratory failure with hypoxia J96.01 Pneumonia due to 2019-nCoV U07.1; J12.89 Acute worsening of stage 3 chronic kidney disease N18.30 Hyponatremia E87.1 Leukocytosis D72.829
[2020-04-04] MEDS: azithromycin 500 MG in sodium chloride 0.9% 250 ML 250 MG IV (15:31)
[2020-04-04 16:55] LABS: Glucose Point of Care 339 mg/dL (70-110)
[2020-04-04] MEDS: dexamethasone 4 mg/mL INJ 6 MG IVP (18:53)
--- NOTE | 2020-04-04 19:30 | PC.NURSE ---
Patient sitting on side of bed SOB and very anxious. Oxygen saturation in the upper 80 to low 90's. Patient voicing that she got a shot yesterday and it helped her with the anxiety. Spoke with patient and tried to help talk her down but patient stated it would not work. Spoke with provider and got order for xanax 0.5 mg PO PRN for anxiety at HS. provider also order Lasix 20 mg IVP to help with fluid overload zambrano catheter intact and patent with drainage bag below level of bladder. Will continue to monitor and assist as needed following CPOC
[2020-04-04] MEDS: FUROsemide 10 mg/mL SDV 2mL 20 MG IVP ×2 (19:41→21:27)
[2020-04-04] MEDS: remdesivir 100 MG in sodium chloride 0.9% (100 ml) 100 ML IV (19:42)
[2020-04-04] MEDS: atorvastatin 40 mg Tablet 20 MG PO (20:52)
[2020-04-04] MEDS: cefTRIAXone 2,000 MG in sodium chloride 0.9% (plus) 50 ML 100 MG IV (20:52)
[2020-04-04] MEDS: ALPRAZolam 0.25 mg Tablet 0.5 MG PO (21:27)
--- NOTE | 2020-04-04 22:02 | PC.NURSE ---
Lasix provided some diuresis and xanax helped patient to overcome anxiety. Patient laying in bed after taking other medications and is resting with eyes closed at this time. Will continue to monitor and assist as needed following CPOC
[2020-04-05] VITALS (245 sets, daily range): BP systolic 70–130; BP diastolic 38–73; PULSE 70–144; RESP 12–42; TEMP 36.8–37.2; O2SAT 71–95
[2020-04-05 06:42] LABS: Basophils % 0.2 %; Hematocrit 39.2 % (37.0-47.0); Lymphocytes # 0.6 10^3/uL (0.8-4.8); Lymphocytes % 5.2 %; Mean Corpuscular HGB Conc 33.2 g/dL (30.0-36.0); Mean Corpuscular Hemoglobin 30.3 pg (28.0-34.0); Mean Corpuscular Volume 91.4 fL (81-99); Monocytes # 0.3 10^3/uL (0.2-0.9); Monocytes % 2.5 %; Neutrophils # 10.36 10^3/uL (1.8-7.7); Nucleated Red Blood Cells % 0 %; Platelet Count 382 10^3/cmm (130-400); Red Blood Count 4.29 10^6/uL (4.1-5.3); White Blood Count 11.4 10^3/uL (4.0-10.0)
[2020-04-05 06:57] LABS: ABG PCO2 33.8 mmHg (35-45); ABG PH Result 7.44 (7.35-7.45); Arterial Blood Gas Hematocrit 44.7 % (37-47); Base Excess ABG -0.7 mmol/L (-2.0-2.0); Blood Gas Allen Test Pos; Blood Gas Sample Type Arterial; HCO3 ABG 22.8 mmol/L (22-26); PO2 ABG 49.1 mmHg (80.0-100.0)
[2020-04-05 06:58] LABS: Blood Gas Operator Identificat HARKR; Blood Gas Sample Site Radial, right
[2020-04-05 07:04] LABS: Magnesium 2.2 mg/dL (1.7-2.3)
[2020-04-05 07:05] LABS: Alanine Aminotransferase 35 U/L (0-33); Albumin Level 2.9 g/dL (3.5-5.2); Alkaline Phosphatase 87 IU/L (35-105); Anion Gap 19.4 (5-19); Aspartate Amino Transferase 36 U/L (0-32); Blood Urea Nitrogen 57 mg/dL (8-23); Calcium 8.7 mg/dL (8.5-10.5); Carbon Dioxide 23 mmol/L (22-29); Chloride 97 mmol/L (98-107); Globulin 3.4 g/dL (1.3-4.6); Glucose 246 mg/dL (65-115); Osmolality Calculated 304 mOsm/kg (285-295); Potassium 4.4 mmol/L (3.5-5.1); Sodium 135 mmol/L (136-145); Total Bilirubin 0.2 mg/dL (0.15-1.2); Total Protein 6.3 g/dL (6.6-8.7)
[2020-04-05 07:10] LABS: NT Pro B Type Natriuretic Pept 515 pg/mL (0-125)
[2020-04-05] MEDS: cilostazol 100 mg Tablet 50 MG PO ×2 (08:28→19:59)
[2020-04-05] MEDS: apixaban 5 mg Tablet 2.5 MG PO ×2 (08:28→17:04)
[2020-04-05] MEDS: aspirin 81 mg EC Tablet PO (08:28)
[2020-04-05] MEDS: ferrous gluconate 324 mg Tablet PO (08:29)
[2020-04-05] MEDS: pantoprazole DR 40 mg Tablet PO (08:29)
[2020-04-05] MEDS: metoprolol tartrate 50 mg Tablet PO ×2 (08:36→20:15)
[2020-04-05] MEDS: amlodipine 10 mg Tablet PO (08:36)
[2020-04-05 08:56] LABS: Glucose Point of Care 291 mg/dL (70-110)
[2020-04-05] MEDS: albuterol 8 gm MDI 2 PUFF INHALATION ×3 (09:23→19:52)
--- NOTE | 2020-04-05 09:25 | P.PN_ITS ---
Subjective Subjective: Interval history: is still SOB.But it hasn't worsened since yesterday. She has remained aferbrile, and satys on 60 % FIO2 @ 40L s and is mantaining saturation around 90 %. Has slight hematuria,Hb has remained stable. Her other vitals and labs have been reviewed. Medications: Reviewed: Yes Vitals/I&O/Wt Last Vital Signs Temp 98.5 F 04/04/20 11:57 Pulse 98 04/05/20 09:24 Resp 20 H 04/05/20 09:24 BP 104/58 04/05/20 06:50 Pulse Ox 94 04/05/20 09:24 04/04/20 04/05/20 04/05/20 22:59 06:59 14:59 Intake Total 557 / 797 150 / 947 Output Total 200 / 350 500 / 850 Balance 357 / 447 -350 / 97 Weight last 48 hrs Weight 99.79 kg Physical Exam Const: COMMON NORMALS: patient oriented x3 HENMT: COMMON NORMALS: normocephalic and atraumatic HEAD & SCALP: normocephalic and atraumatic Chest: COMMONS NORMALS: normal inspection of the chest CHEST: Yes Symmetrical chest wall rise Resp: OTHER: Rt basal crackles present. No wheezing no ronchii Cardio: COMMON NORMALS: regular rate, regular rhythm, S1 normal heart sound present, S2 normal heart sound present, No gallops present (Cardio), No murmurs present (Cardio), No rub (Cardio) and Peripheral pulses 2+ throughout RATE: regular rate RHYTHM: regular rhythm HEART SOUNDS: S1 normal heart sound present and S2 normal heart sound present PERIPHERAL PULSES: Peripheral pulses 2+ throughout GI: COMMON NORMALS: Normal to inspection, nondistended, normoactive bowel sounds present, Soft to palpation, non-tender, No hepatosplenomegaly present and no masses AUSCULTATION: Yes normoactive bowel sounds PALPATION: Yes Soft to palpation and Yes No hepatosplenomegaly present RECTAL EXAM: deferred Extremity: COMMON NORMALS: no clubbing, cyanosis or edema and no pedal edema Neuro: COMMON NORMALS: patient oriented x3 Urinary Catheter Management^: Palma: Cath Placed During This Visit: yes Reason for Continuing Indwelling Catheter: Accurate Measurement of Urinary Output in Critically Ill Patients Urinary Catheter Date of Insertion: 04/04/20 Urinary Catheter Time of Insertion: 18:04 Data : 04/05/20 04:30 04/05/20 04:30 A&P Assessment and plan (1) Acute respiratory failure with hypoxia: Status: Acute (2) Pneumonia due to 2019-nCoV: Status: Acute (3) Acute worsening of stage 3 chronic kidney disease: Status: Acute (4) Hyponatremia: Status: Acute (5) Leukocytosis: Status: Acute Acute hypoxic respiratory failure due to covid-19 pneumonia - COVID-19 dx on 03/31/2020 - Chest x-ray / CTA Chest - b/l ground glass opacities, no PE - Supplemental o2 as needed to maintain o2 sats above 90% - May require HFNC vs BiPAP - Will continue remdesivir 100 mg IV daily x additional 4 days - Decadron 6 mg IV daily x total 10 days - Empirically started on eliquis 2.5 mg PO BID, - S/p Lovenox 100 mg SQ x 1 in ER - Rocephin 2g IV daily - Azithromycin 500 mg IV daily - Ferritin, CRP, D-Dimer, -Pro-seun : - Repeat ABG/Chest -xray in am -S/P 2 bags Convalasent Plasma today Acute on chronic stage 3 kidney disease - Creatinine 1.2-1.3 - SCR :2.1 - d/c lasix, hold metoprolol - Repeat BMP in am - Renally dose medication - Monitor urine output GI ppx - PPI DVT ppx - Eliquis 2.5 mg PO BID Attestations Medical Necessity Statement*: Patient needs to be in hospital for the management of R/F 2/2 COVID PNA Coding Level of Care Code Acute Printer Floor Covering Assistant for [facility] Fwd Exam Detailed Diagnoses Acute respiratory failure with hypoxia J96.01 Pneumonia due to 2019-nCoV U07.1; J12.89 Acute worsening of stage 3 chronic kidney disease N18.30 Hyponatremia E87.1 Leukocytosis D72.829
[2020-04-05 11:31] LABS: Glucose Point of Care 283 mg/dL (70-110)
--- NOTE | 2020-04-05 13:39 | PC.SOCIAL ---
*IMM* Patient recieved her important message from medicare, she stated that she understood. This was relayed vis phone as she is in the VICU with SPEEDY.
[2020-04-05] MEDS: cefTRIAXone 2,000 MG in sodium chloride 0.9% (plus) 50 ML 100 MG IV (16:36)
[2020-04-05] MEDS: azithromycin 500 MG in sodium chloride 0.9% 250 ML 250 MG IV (16:38)
[2020-04-05] MEDS: dexamethasone 4 mg/mL INJ 6 MG IVP (16:38)
[2020-04-05 16:56] LABS: Glucose Point of Care 312 mg/dL (70-110)
[2020-04-05] MEDS: remdesivir 100 MG in sodium chloride 0.9% (100 ml) 100 ML IV (17:04)
[2020-04-05] MEDS: ALPRAZolam 0.25 mg Tablet 0.5 MG PO (19:58)
[2020-04-05] MEDS: famotidine 20 mg Tablet 40 MG PO (19:59)
[2020-04-05] MEDS: atorvastatin 40 mg Tablet 20 MG PO (20:01)
[2020-04-05 20:42] LABS: Glucose Point of Care 275 mg/dL (70-110)
[2020-04-06] VITALS (35 sets, daily range): BP systolic 89–136; BP diastolic 46–86; PULSE 74–125; RESP 9–29; TEMP 36.3–36.9; O2SAT 86–95
[2020-04-06 05:10] LABS: Magnesium 2.3 mg/dL (1.7-2.3)
[2020-04-06 05:29] LABS: ABG PCO2 37.4 mmHg (35-45); ABG PH Result 7.43 (7.35-7.45); Arterial Blood Gas Hematocrit 38.5 % (37-47); Base Excess ABG 0.4 mmol/L (-2.0-2.0); Blood Gas Allen Test Pos; Blood Gas Sample Site Radial, right; Blood Gas Sample Type Arterial; HCO3 ABG 24.6 mmol/L (22-26); Oxygen Device NC; PO2 ABG 60.8 mmHg (80.0-100.0)
[2020-04-06 08:16] LABS: Glucose Point of Care 261 mg/dL (70-110)
[2020-04-06] MEDS: cilostazol 100 mg Tablet 50 MG PO ×2 (09:40→21:11)
[2020-04-06] MEDS: apixaban 5 mg Tablet 2.5 MG PO ×2 (09:41→17:16)
[2020-04-06] MEDS: amlodipine 10 mg Tablet PO (09:41)
[2020-04-06] MEDS: aspirin 81 mg EC Tablet PO (09:43)
[2020-04-06] MEDS: pantoprazole DR 40 mg Tablet PO (09:43)
[2020-04-06] MEDS: ferrous gluconate 324 mg Tablet PO (09:43)
[2020-04-06] MEDS: metoprolol tartrate 50 mg Tablet PO ×2 (10:00→20:48)
[2020-04-06] MEDS: albuterol 8 gm MDI 2 PUFF INHALATION ×2 (10:15→20:41)
[2020-04-06 11:37] LABS: Glucose Point of Care 297 mg/dL (70-110)
[2020-04-06 13:19] LABS: Basophils % 0.2 %; Hemoglobin 12.8 g/dL (11.5-15.3); Lymphocytes # 0.7 10^3/uL (0.8-4.8); Lymphocytes % 6.3 %; Mean Corpuscular HGB Conc 34.6 g/dL (30.0-36.0); Mean Corpuscular Hemoglobin 30.9 pg (28.0-34.0); Mean Corpuscular Volume 89.4 fL (81-99); Mean Platelet Volume 9.2 fL (7.4-10.4); Monocytes # 0.5 10^3/uL (0.2-0.9); Monocytes % 4.5 %; Neutrophils # 9.51 10^3/uL (1.8-7.7); Nucleated Red Blood Cells % 0 %; Platelet Count 442 10^3/cmm (130-400); Red Blood Count 4.14 10^6/uL (4.1-5.3); Red Cell Distribution Width 11.8 % (12.1-15.1); White Blood Count 10.9 10^3/uL (4.0-10.0)
[2020-04-06 16:13] LABS: Alanine Aminotransferase 39 U/L (0-33); Albumin Level 2.8 g/dL (3.5-5.2); Alkaline Phosphatase 103 IU/L (35-105); Blood Urea Nitrogen 46 mg/dL (8-23); Carbon Dioxide 17 mmol/L (22-29); Chloride 96 mmol/L (98-107); Globulin 3.9 g/dL (1.3-4.6); Glucose 280 mg/dL (65-115); Osmolality Calculated 290 mOsm/kg (285-295); Sodium 129 mmol/L (136-145); Total Bilirubin 0.3 mg/dL (0.15-1.2); Total Protein 6.7 g/dL (6.6-8.7)
[2020-04-06 16:18] LABS: Anion Gap 20.4 (5-19); Aspartate Amino Transferase 44 U/L (0-32); Potassium 4.4 mmol/L (3.5-5.1)
[2020-04-06 17:08] LABS: Glucose Point of Care 349 mg/dL (70-110)
[2020-04-06] MEDS: azithromycin 500 MG in sodium chloride 0.9% 250 ML 250 MG IV (17:15)
[2020-04-06] MEDS: dexamethasone 4 mg/mL INJ 6 MG IVP (17:17)
--- NOTE | 2020-04-06 18:34 | PM.PN ---
Subjective Subjective: Interval history: SOB has improved since yesterday.But she still has significant SOB. She has remained afebrile, and has good urine out put. Her other vitals and labs have been reviewed. Medications: Reviewed: Yes Vitals/I&O/Wt Last Vital Signs Temp 97.3 F L 04/06/20 04:00 Pulse 106 H 04/06/20 17:13 Resp 20 H 04/06/20 17:13 BP 113/58 04/06/20 06:00 Pulse Ox 89 L 04/06/20 17:13 04/06/20 04/06/20 04/06/20 06:59 14:59 22:59 Intake Total 360 / 360 Output Total 850 / 2350 Balance -850 / -490 360 / 360 Weight last 48 hrs Weight 103.283 kg Physical Exam Const: COMMON NORMALS: patient oriented x3 HENMT: COMMON NORMALS: normocephalic and atraumatic HEAD & SCALP: normocephalic and atraumatic Resp: COMMON NORMALS: clear to auscultation bilaterally EFFORT & INSPECTION: Yes symmetric chest movement AUSCULTATION: clear to auscultation bilaterally Cardio: COMMON NORMALS: regular rate, regular rhythm, S1 normal heart sound present, S2 normal heart sound present, No gallops present (Cardio), No murmurs present (Cardio), No rub (Cardio) and Peripheral pulses 2+ throughout RATE: regular rate RHYTHM: regular rhythm HEART SOUNDS: S1 normal heart sound present and S2 normal heart sound present PERIPHERAL PULSES: Peripheral pulses 2+ throughout GI: COMMON NORMALS: Normal to inspection, nondistended, normoactive bowel sounds present, Soft to palpation, non-tender, No hepatosplenomegaly present and no masses AUSCULTATION: Yes normoactive bowel sounds PALPATION: Yes Soft to palpation and Yes No hepatosplenomegaly present RECTAL EXAM: deferred Extremity: COMMON NORMALS: no clubbing, cyanosis or edema and no pedal edema Neuro: COMMON NORMALS: patient oriented x3 Urinary Catheter Management^: Palma: Cath Placed During This Visit: yes Reason for Continuing Indwelling Catheter: Accurate Measurement of Urinary Output in Critically Ill Patients Urinary Catheter Date of Insertion: 04/04/20 Urinary Catheter Time of Insertion: 18:04 Data : 04/06/20 12:50 04/06/20 14:00 A&P Assessment and plan (1) Acute respiratory failure with hypoxia: Status: Acute (2) Pneumonia due to 2019-nCoV: Status: Acute (3) Acute worsening of stage 3 chronic kidney disease: Status: Acute (4) Hyponatremia: Status: Acute (5) Leukocytosis: Status: Acute Acute hypoxic respiratory failure due to covid-19 pneumonia - COVID-19 dx on 03/31/2020 - Chest x-ray / CTA Chest - b/l ground glass opacities, no PE - Supplemental o2 as needed to maintain o2 sats above 90% - May require HFNC vs BiPAP - Will continue remdesivir 100 mg IV daily x additional 4 days - Decadron 6 mg IV daily x total 10 days - Empirically started on eliquis 2.5 mg PO BID, - S/p Lovenox 100 mg SQ x 1 in ER - Rocephin 2g IV daily - Azithromycin 500 mg IV daily - Ferritin, CRP, D-Dimer, -Pro-seun : - Repeat ABG/Chest -xray in am -S/P 2 bags Convalasent Plasma -Lasix as needed Acute on chronic stage 3 kidney disease - Creatinine 1.2-1.3 - SCR :1.8 - d/c lasix, hold metoprolol - Repeat BMP in am - Renally dose medication - Monitor urine output GI ppx - PPI DVT ppx - Eliquis 2.5 mg PO BID Attestations Medical Necessity Statement*: Patient needs to be in hospital for the management of R/F 2/2 COVID PNA Coding Level of Care Code Acute Brand Activation Manager for [facility] 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
[2020-04-06] MEDS: cefTRIAXone 2,000 MG in sodium chloride 0.9% (plus) 50 ML 100 MG IV (18:35)
[2020-04-06] MEDS: remdesivir 100 MG in sodium chloride 0.9% (100 ml) 100 ML IV (18:39)
--- NOTE | 2020-04-06 19:48 | PC.NURSE ---
no change in o2 settings this shift.pt up in chair x 2 hrs this afternoon.poor reserves when transfers...o2 sats go down in low 80's and heartrate increases to 120's..quickly recovers.states feels better this evening,than had been feeling since beginning of hospitalization
[2020-04-06 20:22] LABS: Glucose Point of Care 324 mg/dL (70-110)
[2020-04-06] MEDS: atorvastatin 40 mg Tablet 20 MG PO (20:48)
[2020-04-06] MEDS: ALPRAZolam 0.25 mg Tablet 0.5 MG PO (20:52)
[2020-04-06] MEDS: FUROsemide 10 mg/mL SDV 2mL 20 MG IVP (21:04)
[2020-04-07] VITALS (32 sets, daily range): BP systolic 93–134; BP diastolic 53–87; PULSE 70–124; RESP 16–25; TEMP 36.4–37.2; O2SAT 65–94
--- NOTE | 2020-04-07 01:25 | PC.NURSE ---
PT IS RESTING IN BED. PT CAN NOT SEEM TO GET COMFORTABLE. PT KEEPS CHANGING POSITIONS. PT DENIES PAIN. WILL CONTINUE TO MONITOR.
--- NOTE | 2020-04-07 05:35 | PC.NURSE ---
PT HAD AN UNEVENTFUL NIGHT. PT DENIES PAIN. PT HAS RESTED WITH EYES CLOSED THROUGHOUT THE NIGHT. FAMILY CALLED AND THANKED US FOR TAKING CARE OF HER. WILL CONTINUE TO MONITOR.
[2020-04-07 06:30] LABS: Basophils % 0.3 %; Hematocrit 41.4 % (37.0-47.0); Lymphocytes # 0.5 10^3/uL (0.8-4.8); Mean Corpuscular HGB Conc 33.8 g/dL (30.0-36.0); Mean Corpuscular Hemoglobin 30.2 pg (28.0-34.0); Mean Corpuscular Volume 89.2 fL (81-99); Mean Platelet Volume 8.7 fL (7.4-10.4); Monocytes # 0.3 10^3/uL (0.2-0.9); Monocytes % 4.1 %; Neutrophils # 6.11 10^3/uL (1.8-7.7); Neutrophils % 85.5 %; Nucleated Red Blood Cells % 0 %; Platelet Count 396 10^3/cmm (130-400); Red Blood Count 4.64 10^6/uL (4.1-5.3); Red Cell Distribution Width 11.9 % (12.1-15.1); White Blood Count 7.1 10^3/uL (4.0-10.0)
[2020-04-07 06:43] LABS: D Dimer 3.42 ug/mIFEU (0-0.59)
[2020-04-07 06:47] LABS: Alanine Aminotransferase 38 U/L (0-33); Albumin Level 2.9 g/dL (3.5-5.2); Alkaline Phosphatase 106 IU/L (35-105); Anion Gap 16.4 (5-19); Aspartate Amino Transferase 34 U/L (0-32); Blood Urea Nitrogen 41 mg/dL (8-23); Calcium 8.8 mg/dL (8.5-10.5); Carbon Dioxide 24 mmol/L (22-29); Chloride 97 mmol/L (98-107); Globulin 3.6 g/dL (1.3-4.6); Glucose 228 mg/dL (65-115); Magnesium 2.1 mg/dL (1.7-2.3); Osmolality Calculated 293 mOsm/kg (285-295); Potassium 4.4 mmol/L (3.5-5.1); Sodium 133 mmol/L (136-145); Total Bilirubin 0.3 mg/dL (0.15-1.2); Total Protein 6.5 g/dL (6.6-8.7)
[2020-04-07] MEDS: metoprolol tartrate 50 mg Tablet PO ×2 (08:00→20:31)
[2020-04-07] MEDS: ferrous gluconate 324 mg Tablet PO (08:00)
[2020-04-07] MEDS: pantoprazole DR 40 mg Tablet PO (08:00)
[2020-04-07] MEDS: aspirin 81 mg EC Tablet PO (08:00)
[2020-04-07] MEDS: cilostazol 100 mg Tablet 50 MG PO ×2 (08:00→20:31)
[2020-04-07] MEDS: apixaban 5 mg Tablet 2.5 MG PO ×2 (08:01→17:57)
[2020-04-07] MEDS: amlodipine 10 mg Tablet PO (08:01)
[2020-04-07] MEDS: FUROsemide 10 mg/mL SDV 2mL 20 MG IVP ×2 (10:44→22:06)
[2020-04-07 11:24] LABS: Glucose Point of Care 229 mg/dL (70-110)
--- NOTE | 2020-04-07 13:44 | PC.SOCIAL ---
IM follow up discussed with daughter Tamara. Unable to reach pt on cell. Daughter verbalized understanding and has no questions.
--- NOTE | 2020-04-07 13:48 | PM.PN ---
Subjective Subjective: Interval history: Ms.Mary JUNIOR has improved. She fells more comfortable today. She has remained afebrile and continues to be on HHFONC ( 65% Fio2 @40Ls/Min ) Her other vitals and labs have been reviewed Medications: Reviewed: Yes Vitals/I&O/Wt Last Vital Signs Temp 98.9 F 04/07/20 07:00 Pulse 83 04/07/20 10:26 Resp 18 04/07/20 10:26 BP 109/71 04/07/20 10:00 Pulse Ox 91 04/07/20 10:26 04/06/20 04/07/20 04/07/20 22:59 06:59 14:59 Intake Total 730 / 1330 120 / 120 Output Total 550 / 550 1125 / 1675 0 / 0 Balance 180 / 780 -1125 / -345 120 / 120 Weight last 48 hrs Weight 102.875 kg Weight 103.283 kg Physical Exam Const: COMMON NORMALS: patient oriented x3 HENMT: COMMON NORMALS: normocephalic and atraumatic HEAD & SCALP: normocephalic and atraumatic Chest: COMMONS NORMALS: normal inspection of the chest CHEST: Yes Symmetrical chest wall rise Resp: OTHER: Diminished air entry B/L Cardio: COMMON NORMALS: regular rate, regular rhythm, S1 normal heart sound present, S2 normal heart sound present, No gallops present (Cardio), No murmurs present (Cardio), No rub (Cardio) and Peripheral pulses 2+ throughout RATE: regular rate RHYTHM: regular rhythm HEART SOUNDS: S1 normal heart sound present and S2 normal heart sound present PERIPHERAL PULSES: Peripheral pulses 2+ throughout GI: COMMON NORMALS: Normal to inspection, nondistended, normoactive bowel sounds present, Soft to palpation, non-tender, No hepatosplenomegaly present and no masses AUSCULTATION: Yes normoactive bowel sounds PALPATION: Yes Soft to palpation and Yes No hepatosplenomegaly present RECTAL EXAM: deferred Extremity: COMMON NORMALS: no clubbing, cyanosis or edema and no pedal edema Neuro: COMMON NORMALS: patient oriented x3 Urinary Catheter Management^: Palma: Cath Placed During This Visit: yes Reason for Continuing Indwelling Catheter: Accurate Measurement of Urinary Output in Critically Ill Patients Urinary Catheter Date of Insertion: 04/04/20 Urinary Catheter Time of Insertion: 18:04 Data : 04/07/20 06:14 04/07/20 06:14 A&P Assessment and plan (1) Acute respiratory failure with hypoxia: Status: Acute (2) Pneumonia due to 2019-nCoV: Status: Acute (3) Acute worsening of stage 3 chronic kidney disease: Status: Acute (4) Hyponatremia: Status: Acute (5) Leukocytosis: Status: Acute Acute hypoxic respiratory failure due to covid-19 pneumonia - COVID-19 dx on 03/31/2020 - Chest x-ray / CTA Chest - b/l ground glass opacities, no PE - Supplemental o2 as needed to maintain o2 sats above 90% - May require HFNC vs BiPAP - Will continue remdesivir 100 mg IV daily x additional 4 days - Decadron 6 mg IV daily x total 10 days - Empirically started on eliquis 2.5 mg PO BID, - S/p Lovenox 100 mg SQ x 1 in ER - Rocephin 2g IV daily - Azithromycin 500 mg IV daily - Ferritin, CRP, D-Dimer, -Pro-seun : - Repeat ABG/Chest -xray in am -S/P 2 bags Convalasent Plasma -Lasix 20 MG I.V Q12 H DAILY Acute on chronic stage 3 kidney disease likely - Creatinine 1.2-1.3 - SCR :1.7 - Repeat BMP in am - Renally dose medication - Monitor urine output GI ppx - PPI DVT ppx - Eliquis 2.5 mg PO BID Attestations Medical Necessity Statement*: Patient needs to be in hospital for the management of R/F 2/2 COVID PNA Coding Level of Care Code Acute [employer] 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
[2020-04-07 14:19] LABS: Oxygen Device HHF
[2020-04-07] MEDS: azithromycin 500 MG in sodium chloride 0.9% 250 ML 250 MG IV (15:48)
[2020-04-07] MEDS: cefTRIAXone 2,000 MG in sodium chloride 0.9% (plus) 50 ML 100 MG IV (15:49)
[2020-04-07 16:12] LABS: Glucose Point of Care 245 mg/dL (70-110)
[2020-04-07] MEDS: dexamethasone 4 mg/mL INJ 6 MG IVP (16:35)
[2020-04-07 20:25] LABS: Glucose Point of Care 292 mg/dL (70-110)
[2020-04-07] MEDS: atorvastatin 40 mg Tablet 20 MG PO (20:31)
[2020-04-07] MEDS: ALPRAZolam 0.25 mg Tablet 0.5 MG PO (20:32)
[2020-04-08] VITALS (14 sets, daily range): BP systolic 101–151; BP diastolic 62–99; PULSE 77–114; RESP 16–22; TEMP 36.7–36.9; O2SAT 88–92
--- NOTE | 2020-04-08 04:00 | PC.NURSE ---
PT HAD AN UNEVENTFUL NIGHT. PT IS RESTING WITH THEIR EYES CLOSED. WILL CONTINUE TO MONITOR.
--- NOTE | 2020-04-08 05:00 | XRR_ITS ---
PROCEDURE INFORMATION: Exam: XR Chest, 1 View Exam date and time: 04/08/2020 4:27 AM Age: 74 years old Clinical indication: Condition or disease; Lung condition and disease; Pneumonia; Other: Not specified; Additional info: Pna TECHNIQUE: Imaging protocol: XR of the chest Views: Frontal portable supine view of the chest. COMPARISON: CR XR chest 1V portable [id number] 04/02/2020 2:44 PM FINDINGS: Tubes, catheters and devices: EKG leads are present overlying the chest. Lungs: Increased bilateral heterogeneous air space opacities, most confluent in the lateral left mid-lower lung zone and right lung base, relative sparing of the right mid-upper lung zone. The pulmonary vasculature is stable. Pleural space: No definite pleural effusion. No pneumothorax. Heart/Mediastinum: Stable borderline cardiomegaly. Mediastinum: Stable. Bones/joints: Stable. XR/XR chest 1V portable [id number] IMPRESSION: Increased bilateral pulmonary infiltrates, progressive pneumonitis not excluded. Clinical correlation is recommended.
[2020-04-08 06:17] LABS: D Dimer 7.12 ug/mIFEU (0-0.59)
[2020-04-08 06:20] LABS: Alanine Aminotransferase 37 U/L (0-33); Albumin Level 2.8 g/dL (3.5-5.2); Alkaline Phosphatase 113 IU/L (35-105); Anion Gap 14.4 (5-19); Aspartate Amino Transferase 30 U/L (0-32); Blood Urea Nitrogen 37 mg/dL (8-23); Calcium 8.6 mg/dL (8.5-10.5); Carbon Dioxide 26 mmol/L (22-29); Chloride 96 mmol/L (98-107); Globulin 3.4 g/dL (1.3-4.6); Glucose 252 mg/dL (65-115); Magnesium 1.9 mg/dL (1.7-2.3); Osmolality Calculated 291 mOsm/kg (285-295); Potassium 4.4 mmol/L (3.5-5.1); Sodium 132 mmol/L (136-145); Total Bilirubin 0.4 mg/dL (0.15-1.2); Total Protein 6.2 g/dL (6.6-8.7)
[2020-04-08 06:36] LABS: Basophils % 0.1 %; Hematocrit 39.6 % (37.0-47.0); Hemoglobin 13.6 g/dL (11.5-15.3); Lymphocytes # 0.5 10^3/uL (0.8-4.8); Lymphocytes % 7.4 %; Mean Corpuscular HGB Conc 34.3 g/dL (30.0-36.0); Mean Corpuscular Hemoglobin 30.4 pg (28.0-34.0); Mean Corpuscular Volume 88.4 fL (81-99); Mean Platelet Volume 8.9 fL (7.4-10.4); Monocytes # 0.3 10^3/uL (0.2-0.9); Monocytes % 4.4 %; Neutrophils # 5.68 10^3/uL (1.8-7.7); Neutrophils % 83.8 %; Nucleated Red Blood Cells % 0 %; Platelet Count 393 10^3/cmm (130-400); Red Blood Count 4.48 10^6/uL (4.1-5.3); Red Cell Distribution Width 11.7 % (12.1-15.1); White Blood Count 6.8 10^3/uL (4.0-10.0)
[2020-04-08 07:39] LABS: Glucose Point of Care 232 mg/dL (70-110)
[2020-04-08] MEDS: ferrous gluconate 324 mg Tablet PO (08:57)
[2020-04-08] MEDS: amlodipine 10 mg Tablet PO (08:57)
[2020-04-08] MEDS: pantoprazole DR 40 mg Tablet PO (08:57)
[2020-04-08] MEDS: aspirin 81 mg EC Tablet PO (08:57)
[2020-04-08] MEDS: metoprolol tartrate 50 mg Tablet PO ×2 (08:57→19:48)
[2020-04-08] MEDS: cilostazol 100 mg Tablet 50 MG PO ×2 (08:57→22:33)
[2020-04-08] MEDS: apixaban 5 mg Tablet 2.5 MG PO ×2 (08:58→16:59)
[2020-04-08] MEDS: FUROsemide 10 mg/mL SDV 2mL 20 MG IVP ×2 (08:58→19:48)
[2020-04-08 12:12] LABS: Glucose Point of Care 466 mg/dL (70-110)
--- NOTE | 2020-04-08 12:18 | P.PN_ITS ---
Subjective Subjective: Interval history: is doing fine. Her SOB has improved from yesterday.Her supplemental oxygen requirement is going down. She has remained afebrile,has good urine output. Her other vitals and labs have been reviewed. Medications: Reviewed: Yes Vitals/I&O/Wt Last Vital Signs Temp 98.2 F 04/08/20 08:00 Pulse 103 H 04/08/20 11:35 Resp 18 04/08/20 11:35 BP 151/84 04/08/20 08:00 Pulse Ox 88 L 04/08/20 11:35 04/07/20 04/08/20 04/08/20 22:59 06:59 14:59 Intake Total 420 / 660 120 / 780 240 / 240 Output Total 1300 / 1300 1250 / 2550 Balance -880 / -640 -1130 / -1770 240 / 240 Weight last 48 hrs Weight 102.875 kg Physical Exam Const: COMMON NORMALS: patient oriented x3 HENMT: COMMON NORMALS: normocephalic and atraumatic HEAD & SCALP: normocephalic and atraumatic Resp: OTHER: B/L Fine basal crackles present. Fine expiratory wheezing present. Cardio: COMMON NORMALS: regular rate, regular rhythm, S1 normal heart sound present, S2 normal heart sound present, No gallops present (Cardio), No murmurs present (Cardio), No rub (Cardio) and Peripheral pulses 2+ throughout RATE: regular rate RHYTHM: regular rhythm HEART SOUNDS: S1 normal heart sound present and S2 normal heart sound present PERIPHERAL PULSES: Peripheral pulses 2+ throughout GI: COMMON NORMALS: Normal to inspection, nondistended, normoactive bowel sounds present, Soft to palpation, non-tender, No hepatosplenomegaly present and no masses AUSCULTATION: Yes normoactive bowel sounds PALPATION: Yes Soft to palpation and Yes No hepatosplenomegaly present RECTAL EXAM: deferred Neuro: COMMON NORMALS: patient oriented x3 Urinary Catheter Management^: Palma: Cath Placed During This Visit: yes Reason for Continuing Indwelling Catheter: Accurate Measurement of Urinary Output in Critically Ill Patients Urinary Catheter Date of Insertion: 04/04/20 Urinary Catheter Time of Insertion: 18:04 Data : 04/08/20 05:30 04/08/20 05:30 A&P Assessment and plan (1) Acute respiratory failure with hypoxia: Status: Acute (2) Pneumonia due to 2019-nCoV: Status: Acute (3) Acute worsening of stage 3 chronic kidney disease: Status: Acute (4) Hyponatremia: Status: Acute (5) Leukocytosis: Status: Acute Acute hypoxic respiratory failure due to covid-19 pneumonia - COVID-19 dx on 03/31/2020 - Chest x-ray / CTA Chest - b/l ground glass opacities, no PE - Supplemental o2 as needed to maintain o2 sats above 90% - On HHFONC - Remdesivir ( 07/31) day course completed - Decadron 6 mg IV daily x (04/02 ) for total 10 days - Empirically started on eliquis 2.5 mg PO BID, - S/p Lovenox 100 mg SQ x 1 in ER - Rocephin 2g IV daily - Azithromycin 500 mg IV daily - Ferritin, CRP, D-Dimer, -Pro-seun : - Repeat ABG/Chest -xray in am -S/P 2 bags Convalasent Plasma -Lasix 20 MG I.V Q12 H DAILY Acute on chronic stage 3 kidney disease likely - Creatinine 1.2-1.3 - SCR :1.4 - Repeat BMP in am - Renally dose medication - Monitor urine output GI ppx - PPI DVT ppx - Eliquis 2.5 mg PO BID Attestations Medical Necessity Statement*: Patient needs to be in hospital for the management of R/F 2/2 COVID PNA Coding Level of Care Code 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
[2020-04-08] MEDS: azithromycin 500 MG in sodium chloride 0.9% 250 ML 250 MG IV (15:52)
[2020-04-08 16:44] LABS: Glucose Point of Care 229 mg/dL (70-110)
[2020-04-08] MEDS: dexamethasone 4 mg/mL INJ 6 MG IVP (16:48)
[2020-04-08] MEDS: cefTRIAXone 2,000 MG in sodium chloride 0.9% (plus) 50 ML 100 MG IV (16:59)
[2020-04-08] MEDS: atorvastatin 40 mg Tablet 20 MG PO (19:47)
[2020-04-08] MEDS: ALPRAZolam 0.25 mg Tablet 0.5 MG PO (19:47)
[2020-04-08 21:37] LABS: Glucose Point of Care 302 mg/dL (70-110)
[2020-04-09] VITALS (11 sets, daily range): BP systolic 101–152; BP diastolic 63–93; PULSE 69–105; RESP 14–21; TEMP 36.6–37.2; O2SAT 70–92; BMI 28.7
[2020-04-09 04:28] LABS: Basophils % 0.4 %; Hematocrit 38.2 % (37.0-47.0); Hemoglobin 13.2 g/dL (11.5-15.3); Lymphocytes # 0.5 10^3/uL (0.8-4.8); Lymphocytes % 5.7 %; Mean Corpuscular HGB Conc 34.6 g/dL (30.0-36.0); Mean Corpuscular Hemoglobin 30.1 pg (28.0-34.0); Mean Platelet Volume 8.9 fL (7.4-10.4); Monocytes # 0.3 10^3/uL (0.2-0.9); Monocytes % 3.2 %; Neutrophils # 6.75 10^3/uL (1.8-7.7); Neutrophils % 85.6 %; Nucleated Red Blood Cells % 0 %; Platelet Count 403 10^3/cmm (130-400); Red Blood Count 4.39 10^6/uL (4.1-5.3); Red Cell Distribution Width 11.5 % (12.1-15.1); White Blood Count 7.9 10^3/uL (4.0-10.0)
[2020-04-09 04:45] LABS: D Dimer 9.45 ug/mIFEU (0-0.59)
[2020-04-09 04:54] LABS: Alanine Aminotransferase 37 U/L (0-33); Albumin Level 2.6 g/dL (3.5-5.2); Alkaline Phosphatase 118 IU/L (35-105); Anion Gap 12.4 (5-19); Aspartate Amino Transferase 29 U/L (0-32); Blood Urea Nitrogen 32 mg/dL (8-23); Calcium 8.5 mg/dL (8.5-10.5); Carbon Dioxide 28 mmol/L (22-29); Chloride 97 mmol/L (98-107); Globulin 3.3 g/dL (1.3-4.6); Glucose 251 mg/dL (65-115); Magnesium 1.9 mg/dL (1.7-2.3); Osmolality Calculated 291 mOsm/kg (285-295); Potassium 4.4 mmol/L (3.5-5.1); Sodium 133 mmol/L (136-145); Total Bilirubin 0.3 mg/dL (0.15-1.2); Total Protein 5.9 g/dL (6.6-8.7)
[2020-04-09 06:03] LABS: Slide Review Slide Review Perform
[2020-04-09] MEDS: aspirin 81 mg EC Tablet PO (08:04)
[2020-04-09] MEDS: apixaban 5 mg Tablet 2.5 MG PO ×2 (08:04→17:07)
[2020-04-09] MEDS: metoprolol tartrate 50 mg Tablet PO ×2 (08:04→20:04)
[2020-04-09] MEDS: pantoprazole DR 40 mg Tablet PO (08:04)
[2020-04-09] MEDS: amlodipine 10 mg Tablet PO (08:04)
[2020-04-09] MEDS: ferrous gluconate 324 mg Tablet PO (08:05)
[2020-04-09] MEDS: cilostazol 100 mg Tablet 50 MG PO ×2 (08:05→20:04)
[2020-04-09] MEDS: albuterol 8 gm MDI 2 PUFF INHALATION (08:56)
[2020-04-09 12:12] LABS: Glucose Point of Care 340 mg/dL (70-110)
[2020-04-09] MEDS: FUROsemide 10 mg/mL SDV 2mL 20 MG IVP ×2 (12:25→20:03)
--- NOTE | 2020-04-09 12:43 | PC.SOCIAL ---
*IMM UPDATE* Pt didn't answer her phone. I called her daughter, María at 12:43pm and gave her verbal IMM. Signed, dated, timed and placed in chart.
--- NOTE | 2020-04-09 15:10 | PM.PN ---
Subjective Subjective: Interval history: Ms. Gar Shortness of breath has improved.Currently she is saturating above 90% on 10Ls oxygen via nasal cannula. Medications: Reviewed: Yes Vitals/I&O/Wt Last Vital Signs Temp 98.9 F 04/09/20 04:05 Pulse 105 H 04/09/20 08:58 Resp 20 H 04/09/20 08:58 BP 152/93 04/09/20 04:05 Pulse Ox 90 04/09/20 08:58 04/09/20 04/09/20 04/09/20 06:59 14:59 22:59 Intake Total 240 / 240 Output Total 1300 / 2300 0 / 0 Balance -1300 / -1520 240 / 240 Weight last 48 hrs Weight 73.539 kg Physical Exam Narrative: EXAM NARRATIVE: Physical Exam Const COMMON NORMALS: patient oriented x3 HENMT COMMON NORMALS: normocephalic and atraumatic HEAD & SCALP: normocephalic and atraumatic Resp OTHER: B/L Fine basal crackles present. Fine expiratory wheezing present. Cardio COMMON NORMALS: regular rate, regular rhythm, S1 normal heart sound present, S2 normal heart sound present, No gallops present (Cardio), No murmurs present (Cardio), No rub (Cardio) and Peripheral pulses 2+ throughout RATE: regular rate RHYTHM: regular rhythm HEART SOUNDS: S1 normal heart sound present and S2 normal heart sound present PERIPHERAL PULSES: Peripheral pulses 2+ throughout GI COMMON NORMALS: Normal to inspection, nondistended, normoactive bowel sounds present, Soft to palpation, non-tender, No hepatosplenomegaly present and no masses AUSCULTATION: Yes normoactive bowel sounds PALPATION: Yes Soft to palpation and Yes No hepatosplenomegaly present RECTAL EXAM: deferred Urinary Catheter Management^: Palma: Cath Placed During This Visit: yes Reason for Continuing Indwelling Catheter: Accurate Measurement of Urinary Output in Critically Ill Patients Urinary Catheter Date of Insertion: 04/04/20 Urinary Catheter Time of Insertion: 18:04 Data : 04/09/20 02:00 04/09/20 02:00 A&P Assessment and plan (1) Acute respiratory failure with hypoxia: Status: Acute (2) Pneumonia due to 2019-nCoV: Status: Acute (3) Acute worsening of stage 3 chronic kidney disease: Status: Acute (4) Hyponatremia: Status: Acute (5) Leukocytosis: Status: Acute Acute hypoxic respiratory failure due to covid-19 pneumonia - COVID-19 dx on 03/31/2020 - Chest x-ray / CTA Chest - b/l ground glass opacities, no PE - Supplemental o2 as needed to maintain o2 sats above 90% - Currently On 10 Ls oxygen via NC - Remdesivir ( 07/31) day course completed - Decadron 6 mg IV daily x (04/02 ) for total 10 days - Empirically started on eliquis 2.5 mg PO BID, - S/p Lovenox 100 mg SQ x 1 in ER - Rocephin 2g IV daily - Azithromycin 500 mg IV daily - Ferritin, CRP, D-Dimer, -Pro-seun : - Repeat ABG/Chest -xray in am -S/P 2 bags Convalasent Plasma -Lasix 20 MG I.V Q12 H DAILY Acute on chronic stage 3 kidney disease likely - Creatinine 1.2-1.3 - SCR :1.5 - Repeat BMP in am - Renally dose medication - Monitor urine output GI ppx - PPI DVT ppx - Eliquis 2.5 mg PO BID Attestations Medical Necessity Statement*: Patient needs to be in hospital for the management of R/F 2/2 COVID PNA Coding Level of Care 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
[2020-04-09] MEDS: cefTRIAXone 2,000 MG in sodium chloride 0.9% (plus) 50 ML 100 MG IV (15:58)
[2020-04-09] MEDS: azithromycin 500 MG in sodium chloride 0.9% 250 ML 250 MG IV (16:01)
[2020-04-09 16:11] LABS: Glucose Point of Care 403 mg/dL (70-110)
[2020-04-09] MEDS: dexamethasone 4 mg/mL INJ 6 MG IVP (17:07)
[2020-04-09] MEDS: atorvastatin 40 mg Tablet 20 MG PO (20:04)
[2020-04-09] MEDS: ALPRAZolam 0.25 mg Tablet 0.5 MG PO (20:05)
[2020-04-09] MEDS: ropinirole 1 mg Tablet 5 MG PO (20:05)
[2020-04-09 21:12] LABS: Glucose Point of Care 329 mg/dL (70-110)
[2020-04-10] VITALS (22 sets, daily range): BP systolic 106–156; BP diastolic 63–84; PULSE 59–112; RESP 17–30; TEMP 36.7; O2SAT 81–95; BMI 28.0
[2020-04-10 04:17] LABS: Basophils % 0.2 %; Eosinophils % 0.1 %; Hemoglobin 13.3 g/dL (11.5-15.3); Lymphocytes # 0.6 10^3/uL (0.8-4.8); Lymphocytes % 6.8 %; Mean Corpuscular Hemoglobin 30.6 pg (28.0-34.0); Mean Corpuscular Volume 87.4 fL (81-99); Mean Platelet Volume 8.8 fL (7.4-10.4); Monocytes # 0.3 10^3/uL (0.2-0.9); Monocytes % 3.7 %; Neutrophils # 7.05 10^3/uL (1.8-7.7); Neutrophils % 83.3 %; Nucleated Red Blood Cells % 0 %; Platelet Count 371 10^3/cmm (130-400); Red Blood Count 4.35 10^6/uL (4.1-5.3); Red Cell Distribution Width 11.4 % (12.1-15.1); White Blood Count 8.5 10^3/uL (4.0-10.0)
[2020-04-10 04:53] LABS: Alanine Aminotransferase 39 U/L (0-33); Albumin Level 2.6 g/dL (3.5-5.2); Alkaline Phosphatase 124 IU/L (35-105); Anion Gap 12.5 (5-19); Aspartate Amino Transferase 30 U/L (0-32); Blood Urea Nitrogen 29 mg/dL (8-23); Calcium 8.5 mg/dL (8.5-10.5); Carbon Dioxide 29 mmol/L (22-29); Chloride 97 mmol/L (98-107); Globulin 2.9 g/dL (1.3-4.6); Glucose 186 mg/dL (65-115); Osmolality Calculated 289 mOsm/kg (285-295); Potassium 4.5 mmol/L (3.5-5.1); Sodium 134 mmol/L (136-145); Total Bilirubin 0.3 mg/dL (0.15-1.2); Total Protein 5.5 g/dL (6.6-8.7)
[2020-04-10 05:28] LABS: Slide Review Slide Review Perform
[2020-04-10] MEDS: pantoprazole DR 40 mg Tablet PO (09:16)
[2020-04-10] MEDS: amlodipine 10 mg Tablet PO (09:17)
[2020-04-10] MEDS: apixaban 5 mg Tablet 2.5 MG PO ×2 (09:17→17:55)
[2020-04-10] MEDS: aspirin 81 mg EC Tablet PO (09:17)
[2020-04-10] MEDS: ferrous gluconate 324 mg Tablet PO (09:18)
[2020-04-10] MEDS: metoprolol tartrate 50 mg Tablet PO ×2 (09:50→21:36)
[2020-04-10] MEDS: FUROsemide 10 mg/mL SDV 2mL 20 MG IVP ×2 (12:13→21:13)
[2020-04-10 12:14] LABS: Glucose Point of Care 348 mg/dL (70-110)
--- NOTE | 2020-04-10 13:10 | PM.PN ---
Subjective Subjective: Interval history: is felling fine her SOB has improved, and currently she is saturating well on 4/5 Ls oxygen via NC. She wants to be moved to a regular floor. Her other vitals and labs have been reviewed. Medications: Reviewed: Yes Vitals/I&O/Wt Last Vital Signs Temp 97.8 F 04/09/20 21:23 Pulse 107 H 04/10/20 12:00 Resp 30 H 04/10/20 12:00 BP 106/63 04/10/20 12:00 Pulse Ox 85 L 04/10/20 12:00 04/09/20 04/10/20 04/10/20 22:59 06:59 14:59 Intake Total 540 / 1020 320 / 320 Output Total 0 / 0 450 / 450 Balance 540 / 1020 -450 / 570 320 / 320 Weight last 48 hrs Weight 71.838 kg Weight 73.539 kg Physical Exam Const: COMMON NORMALS: patient oriented x3 HENMT: COMMON NORMALS: normocephalic and atraumatic HEAD & SCALP: normocephalic and atraumatic Chest: COMMONS NORMALS: normal inspection of the chest and normal palpation of entire chest wall CHEST: Yes Symmetrical chest wall rise Resp: COMMON NORMALS: normal respiratory effort, No retractions, No use of accessory muscles and clear to auscultation bilaterally EFFORT & INSPECTION: Yes symmetric chest movement AUSCULTATION: clear to auscultation bilaterally Cardio: COMMON NORMALS: regular rate, regular rhythm, S1 normal heart sound present, S2 normal heart sound present, No gallops present (Cardio), No murmurs present (Cardio), No rub (Cardio) and Peripheral pulses 2+ throughout RATE: regular rate RHYTHM: regular rhythm HEART SOUNDS: S1 normal heart sound present and S2 normal heart sound present PERIPHERAL PULSES: Peripheral pulses 2+ throughout GI: COMMON NORMALS: Normal to inspection, nondistended, normoactive bowel sounds present, Soft to palpation, non-tender, No hepatosplenomegaly present and no masses AUSCULTATION: Yes normoactive bowel sounds PALPATION: Yes Soft to palpation and Yes No hepatosplenomegaly present RECTAL EXAM: deferred Extremity: NARRATIVE EXTREMITY EXAM: Trace B/L L/E Edema Neuro: COMMON NORMALS: patient oriented x3 Urinary Catheter Management^: Palma: Cath Placed During This Visit: yes Reason for Continuing Indwelling Catheter: Accurate Measurement of Urinary Output in Critically Ill Patients Urinary Catheter Date of Insertion: 04/04/20 Urinary Catheter Time of Insertion: 18:04 Data : 04/10/20 03:30 04/10/20 03:30 A&P Assessment and plan (1) Acute respiratory failure with hypoxia: Status: Acute (2) Pneumonia due to 2019-nCoV: Status: Acute (3) Acute worsening of stage 3 chronic kidney disease: Status: Acute (4) Hyponatremia: Status: Acute (5) Leukocytosis: Status: Acute Acute hypoxic respiratory failure due to covid-19 pneumonia - COVID-19 dx on 03/31/2020 - Chest x-ray / CTA Chest - b/l ground glass opacities, no PE - Supplemental o2 as needed to maintain o2 sats above 90% - Currently On 5 Ls oxygen via NC - Remdesivir ( 07/31) day course completed - Decadron 6 mg IV daily x (04/02 ) for total 10 days - Empirically started on eliquis 2.5 mg PO BID, - S/p Lovenox 100 mg SQ x 1 in ER - Rocephin 1 g IV daily - Azithromycin 500 mg IV daily - Ferritin, CRP, D-Dimer, -Pro-seun : - Repeat ABG/Chest -xray in am -S/P 2 bags Convalasent Plasma -Lasix 20 MG I.V Q12 H DAILY Acute on chronic stage 3 kidney disease likely - Creatinine 1.2-1.3 - SCR :1.5 - Repeat BMP in am - Renally dose medication - Monitor urine output GI ppx - PPI DVT ppx - Eliquis 2.5 mg PO BID Attestations Medical Necessity Statement*: Patient needs to be in hospital for the management of R/F 2/2 COVID PNA Coding Level of Care 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
--- NOTE | 2020-04-10 15:15 | PC.NURSE ---
Called 2nd time to pharmacy for Pletal. !st time call was placed at 10;30 and lyric writer spoke with Himanshu. 2nd time call was placed, lyric writer spoke with Javier.
[2020-04-10 17:05] LABS: Glucose Point of Care 294 mg/dL (70-110)
[2020-04-10] MEDS: azithromycin 500 MG in sodium chloride 0.9% 250 ML 250 MG IV (17:52)
[2020-04-10] MEDS: dexamethasone 4 mg/mL INJ 6 MG IVP (17:54)
[2020-04-10 20:32] LABS: Glucose Point of Care 385 mg/dL (70-110)
[2020-04-10] MEDS: atorvastatin 40 mg Tablet 20 MG PO (21:14)
[2020-04-10] MEDS: docusate sodium 100 mg Capsule PO (21:14)
[2020-04-10 21:15] LABS: Glucose Point of Care 291 mg/dL (70-110)
[2020-04-10] MEDS: ALPRAZolam 0.25 mg Tablet 0.5 MG PO (21:40)
[2020-04-10] MEDS: cilostazol 100 mg Tablet 50 MG PO (23:15)
[2020-04-11] VITALS (13 sets, daily range): BP systolic 98–147; BP diastolic 55–81; PULSE 58–94; RESP 17–20; TEMP 36.4–37.1; O2SAT 86–97
[2020-04-11 06:36] LABS: Glucose Point of Care 267 mg/dL (70-110)
[2020-04-11] MEDS: metoprolol tartrate 50 mg Tablet PO ×2 (09:21→21:39)
[2020-04-11] MEDS: pantoprazole DR 40 mg Tablet PO (09:21)
[2020-04-11] MEDS: cilostazol 100 mg Tablet 50 MG PO (09:21)
[2020-04-11] MEDS: apixaban 5 mg Tablet 2.5 MG PO ×2 (09:21→18:28)
[2020-04-11] MEDS: aspirin 81 mg EC Tablet PO (09:21)
[2020-04-11] MEDS: FUROsemide 10 mg/mL SDV 2mL 20 MG IVP ×2 (09:21→21:54)
[2020-04-11] MEDS: ferrous gluconate 324 mg Tablet PO (09:21)
[2020-04-11] MEDS: amlodipine 10 mg Tablet PO (09:21)
[2020-04-11 11:23] LABS: Glucose Point of Care 402 mg/dL (70-110)
[2020-04-11] MEDS: albuterol 8 gm MDI 2 PUFF INHALATION ×3 (11:36→21:20)
[2020-04-11] MEDS: benzonatate 100 mg Capsule PO ×2 (14:24→21:38)
[2020-04-11] MEDS: cefTRIAXone 1,000 MG in sodium chloride 0.9% (plus) 50 ML 100 MG IV (14:24)
[2020-04-11 15:09] LABS: NT Pro B Type Natriuretic Pept 203 pg/mL (0-125); Procalcitonin 0.18 ng/mL (0-0.5)
[2020-04-11 15:20] LABS: Iron 59 ug/dL (37-145)
[2020-04-11 15:28] LABS: Percent Saturation 35.5 % (20-50); Total Iron Binding Capacity 166 mcg/dl; Unsaturated Iron Binding 107 ug/dL (112-347)
--- NOTE | 2020-04-11 16:30 | PC.SOCIAL ---
*IMM* Unable to Update the patients IMM. Not discharging in the next day or two.
--- NOTE | 2020-04-11 16:42 | PC.NURSE ---
Entered patient's room and was told patient wanted to try and get up to walk. Patient ambulated 30 feet with stand by assist with a walker. Patient tolerated well. Did however desat to 80% while ambulating. Noticed hematuria in patient's zambrano. Notified physician.
[2020-04-11 17:55] LABS: Glucose Point of Care 480 mg/dL (70-110)
--- NOTE | 2020-04-11 18:26 | P.PN_ITS ---
Subjective Subjective: Interval history: Hospital course, labs and vitals noted On examination sitting comfortably in chair saturating intermittently without any difficulty in breathing, nausea, vomiting, on 8 L high flow nasal cannula Medications: Reviewed: Yes Vitals/I&O/Wt Last Vital Signs Temp 98.2 F 04/11/20 16:00 Pulse 79 04/11/20 16:00 Resp 17 04/11/20 16:00 BP 134/74 04/11/20 16:00 Pulse Ox 91 04/11/20 16:00 04/11/20 04/11/20 04/11/20 06:59 14:59 22:59 Intake Total 960 / 960 480 / 1440 Output Total 250 / 1600 200 / 200 Balance -250 / -690 960 / 960 280 / 1240 Weight last 48 hrs Weight 71.668 kg Weight 71.838 kg Physical Exam Narrative: EXAM NARRATIVE: Physical Exam Const COMMON NORMALS: patient oriented x3 HENMT COMMON NORMALS: normocephalic and atraumatic HEAD & SCALP: normocephalic and atraumatic Resp OTHER: B/L Fine basal crackles present. Fine expiratory wheezing present. Cardio COMMON NORMALS: regular rate, regular rhythm, S1 normal heart sound present, S2 normal heart sound present, No gallops present (Cardio), No murmurs present (Cardio), No rub (Cardio) and Peripheral pulses 2+ throughout RATE: regular rate RHYTHM: regular rhythm HEART SOUNDS: S1 normal heart sound present and S2 normal heart sound present PERIPHERAL PULSES: Peripheral pulses 2+ throughout GI COMMON NORMALS: Normal to inspection, nondistended, normoactive bowel sounds present, Soft to palpation, non-tender, No hepatosplenomegaly present and no masses AUSCULTATION: Yes normoactive bowel sounds PALPATION: Yes Soft to palpation and Yes No hepatosplenomegaly present RECTAL EXAM: deferred Urinary Catheter Management^: Palma: Cath Placed During This Visit: yes Reason for Continuing Indwelling Catheter: Accurate Measurement of Urinary Output in Critically Ill Patients Urinary Catheter Date of Insertion: 04/11/20 Urinary Catheter Time of Insertion: 10:00 Data : 04/10/20 03:30 04/10/20 03:30 A&P Assessment and plan (1) Acute respiratory failure with hypoxia: Status: Acute (2) Pneumonia due to 2019-nCoV: Status: Acute (3) Acute worsening of stage 3 chronic kidney disease: Status: Acute (4) Hyponatremia: Status: Acute (5) Leukocytosis: Status: Acute Additional A&P Information Hypoxic respiratory failure secondary to COVID-19 pneumonia: Cannot rule out superadded bacterial infection though chances are low. Patient has remained afebrile, no leukocytosis. Patient has finished course of antiviral treatment. Switch dexamethasone to prednisone 40 mg oral daily. Check procalcitonin, proBNP, MRSA swab, sputum culture. Stop azithromycin as patient has been taking it for over 5 days now. Continue with IV ceftriaxone for now. Will finish a 7-day course. Start patient on Advair, Spiriva. Incentive spirometry, flutter valve. Will encourage patient to do that as many times as possible Oxygen supplementation keeping saturation over 88% both at rest and ambulation. TENISHA on CKD: Baseline creatinine seems to be from 1.2-1.4. Creatinine back to baseline now. Continue current treatment. Medical r econciliation done for nephrotoxic drugs. Hypertension: Goal blood pressure less than 140/90 mmHg. Continue home dose of antihypertensives. Echocardiogram results appreciated and consistent with a possible normal EF because of technically difficult study. For now continue with IV Lasix 20 mg IV twice daily. We will try to keep patient hydrated negative given hypoxic respiratory failure. Will monitor BMP. Full code Cardiac diet. Eliquis for DVT prophylaxis. Famotidine for PUD prophylaxis. Attestations Medical Necessity Statement*: Requires further hospitalization for management of hypoxic respiratory failure secondary COVID-19 pneumonia Time Spent in Patient Care: Greater than 35 minutes (>than 50% of time spent in counselling and/or direct pt care on unit) . Coding Level of Care Code Acute Lead Care Manager for [facility] Diagnoses Acute respiratory failure with hypoxia J96.01 Pneumonia due to 2019-nCoV U07.1; J12.89 Acute worsening of stage 3 chronic kidney disease N18.30 Hyponatremia E87.1 Leukocytosis D72.829
[2020-04-11] MEDS: ascorbic acid 500 mg Tablet 1000 MG PO (18:28)
[2020-04-11 20:57] LABS: Glucose Point of Care 467 mg/dL (70-110)
[2020-04-11] MEDS: docusate sodium 100 mg Capsule PO (21:38)
[2020-04-11] MEDS: atorvastatin 40 mg Tablet 20 MG PO (21:38)
[2020-04-11] MEDS: ALPRAZolam 0.25 mg Tablet 0.5 MG PO (21:45)
[2020-04-12] VITALS (9 sets, daily range): BP systolic 94–130; BP diastolic 59–84; PULSE 71–92; RESP 18–79; TEMP 36.6–36.8; O2SAT 86–97
[2020-04-12] MEDS: albuterol 8 gm MDI 2 PUFF INHALATION ×2 (01:15→07:27)
[2020-04-12 05:48] LABS: Basophils % 0.3 %; Eosinophils # 0.1 10^3/uL (0.0-0.8); Hematocrit 38.3 % (37.0-47.0); Hemoglobin 13.4 g/dL (11.5-15.3); Lymphocytes # 1.3 10^3/uL (0.8-4.8); Lymphocytes % 11.7 %; Mean Corpuscular Hemoglobin 30.4 pg (28.0-34.0); Mean Corpuscular Volume 86.8 fL (81-99); Monocytes # 0.6 10^3/uL (0.2-0.9); Monocytes % 4.9 %; Neutrophils # 8.67 10^3/uL (1.8-7.7); Neutrophils % 77.8 %; Nucleated Red Blood Cells % 0 %; Platelet Count 359 10^3/cmm (130-400); Red Blood Count 4.41 10^6/uL (4.1-5.3); Red Cell Distribution Width 11.5 % (12.1-15.1); White Blood Count 11.2 10^3/uL (4.0-10.0)
--- NOTE | 2020-04-12 06:00 | XR_ITS ---
WS: [id number] Portable AP upright chest, 04/12/2020 Clinical Data: covid Comparison: Portable chest, 04/08/2020. Findings: The bilateral pulmonary opacities are not changed. The heart size is at the upper limits of normal. No pneumothorax is seen. XR/XR chest 1V portable [id number] Impression: No change in bilateral pulmonary opacities.
[2020-04-12 06:01] LABS: Alanine Aminotransferase 39 U/L (0-33); Albumin Level 2.6 g/dL (3.5-5.2); Alkaline Phosphatase 147 IU/L (35-105); Anion Gap 12.9 (5-19); Aspartate Amino Transferase 24 U/L (0-32); Blood Urea Nitrogen 35 mg/dL (8-23); Calcium 8.4 mg/dL (8.5-10.5); Carbon Dioxide 29 mmol/L (22-29); Chloride 93 mmol/L (98-107); Globulin 2.7 g/dL (1.3-4.6); Glucose 219 mg/dL (65-115); Osmolality Calculated 287 mOsm/kg (285-295); Potassium 3.9 mmol/L (3.5-5.1); Sodium 131 mmol/L (136-145); Total Bilirubin 0.4 mg/dL (0.15-1.2); Total Protein 5.3 g/dL (6.6-8.7)
[2020-04-12 06:06] LABS: Fibrinogen 338 mg/dL (174-498)
[2020-04-12 06:13] LABS: C Reactive Protein 3.8 mg/L (0.0-4.9); Creatine Phosphokinase 48 U/L (26-192); Estmated Average Glucose 240; Lactate Dehydrogenase 343 U/L (135-214); NT Pro B Type Natriuretic Pept 204 pg/mL (0-125)
[2020-04-12 06:15] LABS: D Dimer 8.61 ug/mIFEU (0-0.59)
[2020-04-12 06:31] LABS: Ferritin 1468 ng/mL (15-150)
[2020-04-12 06:39] LABS: Glucose Point of Care 232 mg/dL (70-110)
[2020-04-12] MEDS: benzonatate 100 mg Capsule PO (09:58)
[2020-04-12] MEDS: ferrous gluconate 324 mg Tablet PO (09:58)
[2020-04-12] MEDS: ascorbic acid 500 mg Tablet 1000 MG PO (09:58)
[2020-04-12] MEDS: zinc gluconate 50 mg Tablet PO (09:58)
[2020-04-12] MEDS: aspirin 81 mg EC Tablet PO (09:58)
[2020-04-12] MEDS: apixaban 5 mg Tablet 2.5 MG PO (09:59)
[2020-04-12] MEDS: pantoprazole DR 40 mg Tablet PO (10:00)
[2020-04-12] MEDS: amlodipine 10 mg Tablet PO (10:01)
[2020-04-12] MEDS: predniSONE 20 mg Tablet 40 MG PO (10:02)
[2020-04-12] MEDS: metoprolol tartrate 50 mg Tablet PO (10:05)
[2020-04-12] MEDS: FUROsemide 10 mg/mL SDV 2mL 20 MG IVP (10:46)
--- NOTE | 2020-04-12 12:23 | P.PN_ITS ---
Subjective Subjective: Interval history: No acute events overnight. Patient had a restful night. Working well with incentive spirometry and Acapella. On examination sitting comfortably in chair and is able to have long conversation with me without having any difficulty in breathing. Currently patient is on 6 L high flow nasal cannula saturating more than 90%. She is in good spirits. Medications: Reviewed: Yes Vitals/I&O/Wt Last Vital Signs Temp 98.0 F 04/12/20 08:00 Pulse 78 04/12/20 08:00 Resp 79 H 04/12/20 08:00 BP 126/78 04/12/20 08:00 Pulse Ox 90 04/12/20 08:00 04/11/20 04/12/20 04/12/20 22:59 06:59 14:59 Intake Total 480 / 1440 480 / 480 Output Total 800 / 800 800 / 1600 Balance -320 / 640 -800 / -160 480 / 480 Weight last 48 hrs Weight 71.668 kg Weight 96.842 kg Weight 71.668 kg Physical Exam Narrative: EXAM NARRATIVE: Physical Exam Const COMMON NORMALS: patient oriented x3 HENMT COMMON NORMALS: normocephalic and atraumatic HEAD & SCALP: normocephalic and atraumatic Resp OTHER: B/L Fine basal crackles present. Fine expiratory wheezing present. Cardio COMMON NORMALS: regular rate, regular rhythm, S1 normal heart sound present, S2 normal heart sound present, No gallops present (Cardio), No murmurs present (Cardio), No rub (Cardio) and Peripheral pulses 2+ throughout RATE: regular rate RHYTHM: regular rhythm HEART SOUNDS: S1 normal heart sound present and S2 normal heart sound present PERIPHERAL PULSES: Peripheral pulses 2+ throughout GI COMMON NORMALS: Normal to inspection, nondistended, normoactive bowel sounds present, Soft to palpation, non-tender, No hepatosplenomegaly present and no masses AUSCULTATION: Yes normoactive bowel sounds PALPATION: Yes Soft to palpation and Yes No hepatosplenomegaly present RECTAL EXAM: deferred Urinary Catheter Management^: Palma: Cath Placed During This Visit: yes Reason for Continuing Indwelling Catheter: Accurate Measurement of Urinary Output in Critically Ill Patients Urinary Catheter Date of Insertion: 04/11/20 Urinary Catheter Time of Insertion: 10:00 Data : 04/12/20 05:12 04/12/20 05:12 A&P Assessment and plan (1) Acute respiratory failure with hypoxia: Status: Acute (2) Pneumonia due to 2019-nCoV: Status: Acute (3) Acute worsening of stage 3 chronic kidney disease: Status: Acute (4) Hyponatremia: Status: Acute (5) Leukocytosis: Status: Acute Additional A&P Information Hypoxic respiratory failure secondary to COVID-19 pneumonia: Cannot rule out superadded bacterial infection though chances are low. Patient has remained afebrile, no leukocytosis, pro-Mitch negative. Patient has finished course of antiviral treatment. Continue with prednisone 40 mg oral daily. Azithromycin stopped yesterday after 5-day course. Day 4 of ceftriaxone. Will finish 5-day course. Continue with Advair, Spiriva. Incentive spirometry, flutter valve. Will encourage patient to do that as many times as possible Oxygen supplementation keeping saturation over 88% both at rest and ambulation. Patient saturations better today. We will try with oxygen pendent. Acceptable saturation over 88%. TENISHA on CKD: Baseline creatinine seems to be from 1.2-1.4. Creatinine mildly elevated today. Patient is net negative in last 24 hours. Stop any further Lasix for now. Medical reconciliation done for nephrotoxic drugs. Hypertension: Goal blood pressure less than 140/90 mmHg. Continue home dose of antihypertensives. Full code Cardiac diet. Eliquis for DVT prophylaxis. Famotidine for PUD prophylaxis. Discharge planning: Discussed with patient in detail that patient is on high flow nasal cannula because of which it is difficult to discharge her home and the options for discharge are most likely discharge to SNF versus LTAC for further pulmonary rehabilitation before she goes back home. Patient states she would like to think about LTAC. All the questions were answered. She still states she would want to go to home if possible. Discussed with her that we can try with oxygen pendent and see if her saturations maintain and then can plan to discharge home if possible. Patient has been accepted at LTAC for now. Attestations Medical Necessity Statement*: Patient was further hospitalization for manag ement of hypoxic respiratory failure secondary to COVID-19 pneumonia, TENISHA Time Spent in Patient Care: Greater than 35 minutes (>than 50% of time spent in counselling and/or direct pt care on unit) . Coding Level of Care Code Acute Alternative Dispute Resolution Mediator for Leticia Polanco Diagnoses Acute respiratory failure with hypoxia J96.01 Pneumonia due to 2019-nCoV U07.1; J12.89 Acute worsening of stage 3 chronic kidney disease N18.30 Hyponatremia E87.1 Leukocytosis D72.829
--- NOTE | 2020-04-12 16:11 | PM.TDS ---
Transfer Summary Providers Date of Admission: 04/02/20 18:52 Date of Discharge: 04/12/20 Attending Provider at Admission: Janeth Kidd Attending Provider at Transfer: Jose Luis Urbina MD Primary Care Provider: Jannie Nazario DO Anticipated Date of Transfer: Anticipated date of transfer: 04/12/20 Receiving Facility & Provider: Receiving Provider: [Dr dsouza] Receiving facility: [[facility]] Diagnoses at Discharge Discharge Diagnosis (1) Acute respiratory failure with hypoxia: Status: Acute (2) Pneumonia due to 2019-nCoV: Status: Acute (3) Acute worsening of stage 3 chronic kidney disease: Status: Acute (4) Hyponatremia: Status: Acute (5) Leukocytosis: Status: Acute Reason for Visit Reason for Visit: COVID +, LOW OXYGEN LEVELS Hospital Course Hospital Course 72-year-old female with a past medical history significant for hypertension, dyslipidemia, diabetes mellitus, peripheral vascular disease, carotid arterial stenosis, gastroesophageal reflux disease, irritable bowel syndrome, osteoporosis, bilateral lower extremity venous insufficiency and COVID-19 infection diagnosed on March 31, 2020 who has presented to the hospital with low oxygen saturations. Patient stated that she was monitoring her O2 sats at home. Noted hypoxia with O2 sats as low as 80%. Upon arrival to hospital she was noted to be 83%. She was requiring initially 6 L via nasal cannula however then replaced with non-rebreather. This is associated with fever, chills, nausea, vomiting and generalized weakness. She also noted a mildly productive cough. Laboratory workup on arrival showed a WBC of 13.7, hemoglobin of 12.8, hematocrit 38.3 and a platelet count of 280. D-dimer was elevated at 5.42. Sodium 130, potassium 3.9, chloride 97, bicarb 20, BUN 28 and creatinine of 1.5. Prior creatinine was 1.2 in January of 2020. lactic acid of 1.8. Arterial blood gases showed a pH of 7.42, pCO2 of 32.1, PO2 of 73.3 and a bicarb of 20.6. Chest x-ray showed mid to lower lung opacification bilaterally. CT chest PE protocol showed bilateral patchy ground-glass interstitial infiltrates bilaterally with evidence of early consolidation consistent of active interstitial pneumonitis / pneumonia. No acute pulmonary embolism is noted. Patient was admitted to hospital for further work up and treatment. Patient going to the hospital for treatment for COVID-19 pneumonia. She received antiviral treatment with remdesivir, IV steroids and initial treatment. Patient gradually improved and was transferred to the floors. Patient has been requiring as high as 7 to 8 L of high flow nasal cannula oxygen supplementation to keep saturation around 88% both at rest and ambulation the patient remains comfortable. Patient's hospitalization was complicated by development of TENISHA on chronic kidney disease which was managed with managing fluid status. It is believed that patient requires further pulmonary rehab for improvement in oxygen supplementation and transfer to LTAC was sought and patient was accepted. The above were discussed in detail with the patient and her family and they are both agreeable. Patient is discharged in hemodynamically stable condition for further management of hypoxia because of COVID-19 pneumonia. For further details please look at my progress note from today. Physical Exam Narrative: EXAM NARRATIVE: Physical Exam Const COMMON NORMALS: patient oriented x3 HENMT COMMON NORMALS: normocephalic and atraumatic HEAD & SCALP: normocephalic and atraumatic Resp OTHER: B/L Fine basal crackles present. Fine expiratory wheezing present. Cardio COMMON NORMALS: regular rate, regular rhythm, S1 normal heart sound present, S2 normal heart sound present, No gallops present (Cardio), No murmurs present (Cardio), No rub (Cardio) and Peripheral pulses 2+ throughout RATE: regular rate RHYTHM: regular rhythm HEART SOUNDS: S1 normal heart sound present and S2 normal heart sound present PERIPHERAL PULSES: Peripheral pulses 2+ throughout GI COMMON NORMALS: Normal to inspection, nondistended, normoactive bowel sounds present, Soft to palpation, non-tender, No hepatosplenomegaly present and no masses AUSCULTATION: Yes normoactive bowel sounds PALPATION: Yes Soft to palpation and Yes No hepatosplenomegaly present RECTAL EXAM: deferred Urinary Catheter Management^: Palma: Cath Placed During This Visit: yes Reason for Continuing Indwelling Catheter: Accurate Measurement of Urinary Output in Critically Ill Patients Urinary Catheter Date of Insertion: 04/11/20 Urinary Catheter Time of Insertion: 10:00 TS Data Data Completed and Pending: Completed Studies During Hospitalization Category Date Time Status CT angio chest PE protcl [id number] Stat Cat Scan 04/02/20 16:04 Completed XR chest 1V radha ble [id number] Q48H Exams 04/12/20 06:00 Completed XR chest 1V radha ble [id number] Routine Exams 04/08/20 05:00 Completed XR chest 1V radha ble [id number] Stat Exams 04/02/20 14:40 Completed CV echo complete* [id number] Routine Ultrasound 04/04/20 04:56 Completed Pending at discharge Category Date Time Status XR chest 1V radha ble [id number] Q48H Exams 04/14/20 06:00 Ordered XR chest 1V radha ble [id number] Q48H Exams 04/16/20 06:00 Ordered Complete Blood Co unt w/Auto AM LABS Lab 04/13/20 04:00 Ordered Comprehensive Met abolic Panel AM LA BS Lab 04/13/20 04:00 Ordered Miscellaneous Nereyda t Routine Lab 04/11/20 13:35 Received Sputum Culture Ro utine Lab 04/07/20 22:24 Uncollected Labs from last 24 hours 04/12/20 04/12/20 04/12/20 06:33 05:12 05:12 WBC RBC Hgb Hct MCV MCH MCHC RDW Plt Count MPV Neut % (Auto) Lymph % (Auto) [place] % (Auto) Eos % (Auto) Baso % (Auto) Neut # (Auto) Lymph # (Auto) [place] # (Auto) Eos # (Auto) Baso # (Auto) Nucleated RBC % (a uto) Nucleated RBCs # Fibrinogen D-Dimer Sodium Potassium Chloride Carbon Dioxide Anion Gap BUN Creatinine GFR Calculation Glucose POC Glucose 232 H Estimat Average Gl ucose 240 Hemoglobin A1c 10.0 H Calculated Osmolal ity Calcium Ferritin 1468 H Total Bilirubin AST ALT Alkaline Phosphata se Lactate Dehydrogen ase 343 H Creatine Kinase 48 C-Reactive Protein 3.8 NT-Pro-B Natriuret Pep 204 H Total Protein Albumin Globulin 04/12/20 04/12/20 04/12/20 05:12 05:12 05:12 WBC 11.2 H RBC 4.41 Hgb 13.4 Hct 38.3 MCV 86.8 MCH 30.4 MCHC 35.0 RDW 11.5 L Plt Count 359 MPV 9.0 Neut % (Auto) 77.8 Lymph % (Auto) 11.7 [place] % (Auto) 4.9 Eos % (Auto) 1.0 Baso % (Auto) 0.3 Neut # (Auto) 8.67 H Lymph # (Auto) 1.3 [place] # (Auto) 0.6 Eos # (Auto) 0.1 Baso # (Auto) 0.0 Nucleated RBC % (a uto) 0 Nucleated RBCs # 0.0 Fibrinogen 338 D-Dimer 8.61 H Sodium 131 L Potassium 3.9 Chloride 93 L Carbon Dioxide 29 Anion Gap 12.9 BUN 35 H Creatinine 1.6 H GFR Calculation Not Reportable Glucose 219 H POC Glucose Estimat Average Gl ucose Hemoglobin A1c Calculated Osmolal ity 287 Calcium 8.4 L Ferritin Total Bilirubin 0.4 AST 24 ALT 39 H Alkaline Phosphata se 147 H Lactate Dehydrogen ase Creatine Kinase C-Reactive Protein NT-Pro-B Natriuret Pep Total Protein 5.3 L Albumin 2.6 L Globulin 2.7 04/11/20 04/11/20 20:43 17:51 WBC RBC Hgb Hct MCV MCH MCHC RDW Plt Count MPV Neut % (Auto) Lymph % (Auto) [place] % (Auto) Eos % (Auto) Baso % (Auto) Neut # (Auto) Lymph # (Auto) [place] # (Auto) Eos # (Auto) Baso # (Auto) Nucleated RBC % (a uto) Nucleated RBCs # Fibrinogen D-Dimer Sodium Potassium Chloride Carbon Dioxide Anion Gap BUN Creatinine GFR Calculation Glucose POC Glucose 467 H 480 H Estimat Average Gl ucose Hemoglobin A1c Calculated Osmolal ity Calcium Ferritin Total Bilirubin AST ALT Alkaline Phosphata se Lactate Dehydrogen ase Creatine Kinase C-Reactive Protein NT-Pro-B Natriuret Pep Total Protein Albumin Globulin Vitals: Last Vital Signs Temp 98.0 F 04/12/20 08:00 Pulse 78 04/12/20 08:00 Resp 79 H 04/12/20 08:00 BP 126/78 04/12/20 08:00 Pulse Ox 90 04/12/20 08:00 TS Medications Medications Home Medications aspirin 81 mg tablet,delayed release 81 mg PO DAILY@89906/19/19 [History Confirmed 04/02/20] famotidine 40 mg tablet 40 mg PO BID@899,199906/19/19 [History Confirmed 04/02/20] lansoprazole 30 mg capsule,delayed release 30 mg PO DAILY@89906/19/19 [History Confirmed 04/02/20] meclizine 25 mg tablet 25 mg PO DAILY PRN 06/19/19 [History Confirmed 04/02/20] ondansetron HCl 4 mg tablet 4 mg PO Q8H PRN 06/19/19 [History Confirmed 04/02/20] ropinirole 5 mg tablet 5 mg PO DAILY PRN 06/19/19 [History Confirmed 04/02/20] metoprolol succinate 50 mg tablet,extended release 24 hr 25 mg PO DAILY@0900 tab 09/12/19 [History Confirmed 04/02/20] simvastatin 20 mg tablet 20 mg PO .COMPLEX 09/12/19 [History Confirmed 04/02/20] meloxicam 15 mg tablet 15 mg PO DAILY PRN tab 11/06/19 [History Confirmed 04/02/20] semaglutide 0.5 mg SUBCUT Q7D ml 11/06/19 [History Confirmed 04/02/20] amlodipine 10 mg tablet 10 mg PO DAILY@0900 tab 12/19/19 [History Confirmed 04/02/20] furosemide 20 mg tablet 20 mg PO DAILY@0900 12/19/19 [History Confirmed 04/02/20] glimepiride 4 mg tablet 4 mg PO BID@0800,1999 tab 12/19/19 [History Confirmed 04/02/20] lisinopril 5 mg tablet 2.5 mg PO BID@0900,1999 tab 12/19/19 [History Confirmed 04/02/20] acetaminophen [Tylenol] 325 - 650 mg PO Q4H PRN 04/02/20 [History Confirmed 04/02/20] cilostazol 50 mg PO BID@0900,199904/02/20 [History Confirmed 04/02/20] doxycycline hyclate See Rx Instructions .ROUTE .COMPLEX 04/02/20 [History Confirmed 04/02/20] ferrous gluconate 325 mg PO DAILY@0900 04/02/20 [History Confirmed 04/02/20] prednisone 40 mg PO DAILY@0900 04/02/20 [History Confirmed 04/02/20] Active Medications Acetaminophen (Acetaminophen 325 Mg Tablet) 650 mg PO Q6H PRN PRN Reason: Mild/Mod Pain Or Temp >/= 101 Albuterol Sulfate (Albuterol 8 Gm Mdi) 2 puff INHALATION Q4H.RESPIRATORY PRN PRN Reason: SHORTNESS OF BREATH Last Admin: 04/12/20 07:27 Dose: 2 puff Documented by: Alprazolam (Alprazolam 0.25 Mg Tablet) 0.5 mg PO BEDTIME PRN PRN Reason: ANXIETY Last Admin: 04/11/20 21:45 Dose: 0.5 mg Documented by: Amlodipine Besylate (Amlodipine 10 Mg Tablet) 10 mg PO DAILY@0900 [facility] Last Admin: 04/12/20 10:01 Dose: 10 mg Documented by: Apixaban (Apixaban 5 Mg Tablet) 5 mg PO BID [facility] Ascorbic Acid (Ascorbic Acid 500 Mg Tablet) 1,000 mg PO DAILY [facility] Aspirin (Aspirin 81 Mg Ec Tablet) 81 mg PO DAILY@0900 [facility] Last Admin: 04/12/20 09:58 Dose: 81 mg Documented by: Atorvastatin Calcium (Atorvastatin 40 Mg Tablet) 20 mg PO BEDTIME [facility] Last Admin: 04/11/20 21:38 Dose: 20 mg Documented by: Benzonatate (Benzonatate 100 Mg Capsule) 100 mg PO TID [facility] Last Admin: 04/12/20 09:58 Dose: 100 mg Documented by: Cilostazol (Cilostazol 100 Mg Tablet) 50 mg PO BID@0900,1999 [facility] Last Admin: 04/11/20 09:21 Dose: 50 mg Documented by: Dextrose (Dextrose 50% Syringe 50 Ml) 25 ml IVP ONCE PRN; Protocol PRN Reason: hypoglycemia protocol Dextrose (Dextrose 50% Syringe 50 Ml) 50 ml IVP PRN PRN; Protocol PRN Reason: hypoglycemia protocol Docusate Sodium (Docusate Sodium 100 Mg Capsule) 100 mg PO BEDTIME [facility] Last Admin: 04/11/20 21:38 Dose: 100 mg Documented by: Ferrous Gluconate (Ferrous Gluconate 324 Mg Tablet) 324 mg PO DAILY@0900 [facility] Last Admin: 04/12/20 09:58 Dose: 324 mg Documented by: Glucagon (Glucagon 1 Mg/Ml Inj 1 Ml) 1 mg IM ONCE PRN; Protocol PRN Reason: Adult Acute Hypoglycemia Prot. Dextrose (D5w) 500 mls @ 100 mls/hr IV ONCE PRN; Protocol PRN Reason: Adult Acute Hypoglycemia Prot Insulin Aspart (Insulin Aspart 100 Unit/1 Ml) 0 unit SUBCUT WM&BEDTIME [facility]; Protocol Last Admin: 04/12/20 09:58 Dose: 10 unit Documented by: Lactulose (Lactulose Oral Liq 20 Gm/30 Ml Udc) 20 gm PO Q6H PRN PRN Reason: CONSTIPATION Meclizine HCl (Meclizine 25 Mg Tablet) 25 mg PO DAILY PRN PRN Reason: Dizziness Metoprolol Tartrate (Metoprolol Tartrate 50 Mg Tablet) 50 mg PO BID@0900,2100 [facility] Last Admin: 04/12/20 10:05 Dose: 50 mg Documented by: Ondansetron HCl (Ondansetron 2 Mg/Ml Sdv 2 Ml) 4 mg IVP Q8H PRN PRN Reason: vomiting, or N/V if npo Pantoprazole Sodium (Pantoprazole Dr 40 Mg Tablet) 40 mg PO DAILY@0900 [facility] Last Admin: 04/12/20 10:00 Dose: 40 mg Documented by: Prednisone (Prednisone 20 Mg Tablet) 40 mg PO DAILY [facility] Last Admin: 04/12/20 10:02 Dose: 40 mg Documented by: Ropinirole HCl (Ropinirole 1 Mg Tablet) 5 mg PO QPM PRN PRN Reason: Restless Leg(S) Last Admin: 04/09/20 20:05 Dose: 5 mg Documented by: Fluticasone/Salmeterol (Fluticasone-Salmeterol 250-50 Diskus) 1 puff INHALATION BID.RESPIRATORY [facility] Last Admin: 04/12/20 07:27 Dose: 1 puff Documented by: Tiotropium [place] (Tiotropium 18 Mcg Mdi) 18 mcg INHALATION DAILY.RESPIRATORY [facility] Last Admin: 04/12/20 07:27 Dose: 1 inhalation Documented by: Zinc Gluconate (Zinc Gluconate 50 Mg Tablet) 50 mg PO DAILY [facility] Last Admin: 04/12/20 09:58 Dose: 50 mg Documented by: Discharge Plan Discharge Patient Disposition: Xfer [facility] Condition: Stable Prescriptions: No Action famotidine 40 mg tablet 40 mg PO BID@899,1999 RF: 0 meclizine 25 mg tablet 25 mg PO DAILY PRN (Reason: Dizziness) RF: 0 ondansetron HCl 4 mg tablet 4 mg PO Q8H PRN (Reason: nausea/vomiting) RF: 0 lansoprazole [Prevacid] 30 mg capsule,delayed release(DR/EC) 30 mg PO DAILY@0900 RF: 0 aspirin [Adult Low Dose Aspirin] 81 mg tablet,delayed release (DR/EC) 81 mg PO DAILY@0900 RF: 0 ropinirole [Requip] 5 mg tablet 5 mg PO DAILY PRN (Reason: Restless Leg(S)) RF: 0 metoprolol succinate 50 mg tablet extended release 24 hr 25 mg PO DAILY@0900 RF: 0 simvastatin 20 mg tablet 20 mg PO .COMPLEX RF: 0 lisinopril 5 mg tablet 2.5 mg PO BID@899,1999 RF: 0 furosemide 20 mg tablet 20 mg PO DAILY@0900 RF: 0 Ozempic 0.25 mg or 0.5 mg(2 mg/1.5 mL) pen injector 0.5 mg SUBCUT Q7D RF: 0 amlodipine 10 mg tablet 10 mg PO DAILY@0900 RF: 0 meloxicam 15 mg tablet 15 mg PO DAILY PRN (Reason: arthritis pain) RF: 0 glimepiride 4 mg tablet 4 mg PO BID@799,1999 RF: 0 cilostazol 50 mg tablet 50 mg PO BID@899,1999 RF: 0 doxycycline hyclate 100 mg capsule See Rx Instructions .ROUTE .COMPLEX RF: 0 prednisone 20 mg tablet 40 mg PO DAILY@0900 RF: 0 ferrous gluconate 325 mg 325 mg PO DAILY@0900 RF: 0 Tylenol 325 mg Tablet 325 - 650 mg PO Q4H PRN (Reason: Pain) RF: 0 Discharge Orders: Discharge Order (Routine); Ordered 04/12/20 Ordered By: Jose Luis Urbina Transfer Out of Facility (Order); Ordered 04/12/20 Ordered By: Jose Luis Urbina Referrals: Jannie Nazario DO [Primary Care Provider] - Transfer Attestations Time Spent in Transfer Care*: greater than 30 min Specific Discharge Activities: Specific discharge activities: educating patient, educating and/or supporting family/caregiver, discussing with home health care case manager/social workers/dc planners, documenting/other paperwork and evaluating patient/reviewing data Status at Transfer: Cognitive status at transfer: cognitively intact, Behavioral status at transfer: cooperative, Functional status at transfer: independent ambulation Overall status at transfer: patient is progressing back to baseline Quality Metrics Clinical Quality Measures: During this hospital stay, did patient experience: None Coding Level of Care Code Acute Insole Stiffener for Leticia Fwandrew Diagnoses Acute respiratory failure with hypoxia J96.01 Pneumonia due to 2019-nCoV U07.1; J12.89 Acute worsening of stage 3 chronic kidney disease N18.30 Hyponatremia E87.1 Leukocytosis D72.829
[2020-04-12] MEDS: apixaban 5 mg Tablet PO (18:35)
[2020-04-13 00:36] LABS: Glucose Point of Care 486 mg/dL (70-110)
== END 2020-04-12 18:45 | DRG 177 ==
LOC: ER 17:22 → ER IP 22:59 → ICU 04-03 06:20 → MEDSURG 04-10 21:05
PROVIDERS: Internal Medicine; Admitting Provider Hospitalist; Emergency Provider Family Medicine; PCP Family Medicine; Visit Provider Student in an Organized Health Care Education/Training Program
DX: U07.1 COVID-19 (principal); J12.82 Pneumonia due to coronavirus disease 2019; J96.01 Acute respiratory failure with hypoxia; E87.1 Hypo-osmolality and hyponatremia; N17.9 Acute kidney failure, unspecified; E11.22 Type 2 diabetes mellitus with diabetic chronic kidney disease; I12.9 Hypertensive chronic kidney disease with stage 1 through stage 4 chronic kidney disease, or unspecified chronic kidney disease; N18.32 Chronic kidney disease, stage 3b; E78.5 Hyperlipidemia, unspecified; E11.51 Type 2 diabetes mellitus with diabetic peripheral angiopathy without gangrene; I65.29 Occlusion and stenosis of unspecified carotid artery; K21.9 Gastro-esophageal reflux disease without esophagitis; K58.9 Irritable bowel syndrome, unspecified; M81.0 Age-related osteoporosis without current pathological fracture; Z79.82 Long term (current) use of aspirin; Z79.84 Long term (current) use of oral hypoglycemic drugs
CPT/HCPCS: 12345; 36415; 36416; 36430; 36600; 51702; 71045; 71275; 80051; 80053; 82330; 82550; 82728; 82803; 82805; 82962; 83036; 83540; 83550; 83605; 83615; 83735; 83880; 84145; 84443; 84484; 85025; 85378; 85384; 86140; 86900; 86927; 87081; 93005; 93306; 94640; 94664; 96372; 99284; J0456; J0696; J1100; J1650; J1815; J1940; J2405; J3490; J3535; J7050; J7512; P9017; Q9967

== ENCOUNTER 2020-07-14 07:32 | Emergency (ER) | payer MEDICARE, OTHER, SELFPAY ==
[2020-07-14 07:33] VITALS: BP 203/81; PULSE 51; RESP 18; TEMP 36.7; O2SAT 96; BMI 37.2
--- NOTE | 2020-07-14 07:48 | XRR_ITS ---
PROCEDURE INFORMATION: Exam: XR Chest Exam date and time: 07/14/2020 8:00 AM Age: 74 years old Clinical indication: Other: High blood pressure; Additional info: HTN TECHNIQUE: Imaging protocol: XR of the chest. Views: 1 view. COMPARISON: CR XR chest 1V portable [id number] 04/12/2020 6:13 AM FINDINGS: Lungs: There is mildly increased lung markings, in association with bilateral lower lobe airspace opacities. No large pleural effusion or pneumothorax. Pleural spaces: See Lungs finding. Heart/Mediastinum: Stable cardiomediastinal silhouette. Bones/joints: Degenerative changes of the spine seen. XR/XR chest 1V portable [id number] IMPRESSION: Nonspecific imaging findings, which can be seen with pulmonary edema or pneumonia, clinical correlation is recommended.
--- NOTE | 2020-07-14 07:48 | ECG_ITS ---
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 Measurements Intervals [place] Rate: 61 P: 72 VT: 138 QRS: -17 QRSD: 142 T: 98 QT: 452 QTc: 457 Interpretive Statements SINUS RHYTHM LEFT BUNDLE BRANCH BLOCK [120+ ms QRS DURATION, 80+ ms Q/S IN V1/V2, 85+ ms R IN I/aVL/V5/V6] Compared to ECG 04/04/2020 12:03:12 Sinus arrhythmia no longer present Electronically Signed On 07-14-2020 10:25:36 CDT by Debbie Florez M.D. [email or web address]
--- NOTE | 2020-07-14 07:49 | ED_ITS ---
HPI - General Adult General: Chief complaint: General Medical Stated complaint: POSS HIGH BP Time Seen by Provider: 07/14/20 07:41 History of Present Illness: HPI narrative: Patient here stating that blood pressure is staying high. Also complains of anxiety. Patient states she was changed to 10 mg lisinopril on Wednesday due to her hypertension. This was done by Dr. Velazquez. Patient has no significant complaints she is worried about a stroke and emboli because she had Covid [address] Velazquez is scheduled for echocardiogram next week. Patient denies shortness of breath chest pain headache or other related problems. Did not feel that the lisinopril is working well. Onset (ago): day(s) Associated symptoms: Reports no associated symptoms; Deny chest pain, dyspnea, headache(s), nausea, rash or vomiting Review of Systems Const: Denies: fever(s), chills or body aches Eyes: Denies: change in vision or blurry vision ENMT: Denies: throat pain or nasal congestion Card: Reports: other (High blood pressure); Denies: chest pain or dyspnea on exertion Resp: Denies: dyspnea, productive cough or non-productive cough GI: Denies: abdominal pain, nausea or vomiting Musc: Denies: extremity pain Skin/Breast: Denies: rash Neuro: Denies: headache(s) Psych: Reports: anxiety; Denies: depression Alfred/Lymph: Denies: easy bruising PFS ED PFSH: Medical History Carotid artery stenosis Chronic kidney disease (CKD) stage G3b/A1, moderately decreased glomerular filtration rate (GFR) between 30-44 mL/min/1.73 square meter and albuminuria creatinine ratio less than 30 mg/g Diabetes mellitus GERD (gastroesophageal reflux disease) Hyperkalemia Hospitalized at [facility] for potassium 6.9, spironolactone discontinued, GFR 36. IBS (irritable bowel syndrome) LBBB (left bundle branch block) Osteoporosis PVD (peripheral vascular disease) Varicose veins of left lower extremity with other complications Surgical History S/P cataract extraction S/P cholecystectomy S/P hysterectomy S/P knee surgery Right Family History Brother CAD (coronary artery disease) Mother CAD (coronary artery disease) Denies family history of Diabetes Clotting disorder Dementia Hyperlipidemia Psychiatric illness Chronic kidney disease (CKD) Suicide Anesthesia complication Bleeding disorder Family history of premature coronary artery disease Lung disease Cancer Hypertension Stroke Social History Smoking and tobacco status: never smoked Alcohol intake: never Physical Exam Const: COMMON NORMALS: no acute distress, average body habitus and patient oriented x3 HENMT: COMMON NORMALS: normocephalic HEAD & SCALP: normal to inspection and normocephalic FACE & SINUS: normal facial exam Eye: COMMON NORMALS: conjunctivae normal GENERAL EYE: appearance normal, both eyes and all related structures CONJUNCTIVA: Yes conjunctivae normal Neck/C-Spine: COMMON NORMALS: no JVD Chest: COMMONS NORMALS: normal inspection of the chest Resp: COMMON NORMALS: normal respiratory effort and clear to auscultation bilaterally AUSCULTATION: clear to auscultation bilaterally Cardio: COMMON NORMALS: no JVD, regular rate and regular rhythm RATE: regular rate RHYTHM: regular rhythm GI: COMMON NORMALS: Normal to inspection, nondistended, normoactive bowel sounds present Extremity: COMMON NORMALS: normal to inspection and full ROM Neuro: COMMON NORMALS: patient oriented x3 Skin: NARRATIVE SKIN EXAM: Skin is dry Course Vital Signs: Vital signs: Vital Signs Temperature 98.0 F 07/14/20 07:33 Pulse Rate 50 L 07/14/20 10:53 Respiratory Rate 18 07/14/20 07:33 Blood Pressure 143/78 07/14/20 10:53 Pulse Oximetry 97 07/14/20 10:53 MDM - General Adult MDM Narrative: Medical decision making narrative: Patient has responded well to medication treatment here. Patient has an echo scheduled for Wednesday. Patient's x-ray does look improved from her time here in March when she had Covid. Does she still show some congestion space on that left side. Radiologist read pulmonary edema or pneumonia. Patient does not have any symptoms of pneumonia. Her sats maintaining good 97 to 100% her on room air. No cough fever chills or other symptoms. Patient will follow Dr. Brambila and discuss clonidine use and possibly change in blood pressure medication. Discussed case with ER doc Dr. Brambila. Reviewed labs and radiology radiology. Lab Data: Labs: Lab Results 07/14/20 07/14/20 07/14/20 Range/Units 09:16 09:16 09:16 WBC 8.4 (4.0-10.0) 10^3/ uL RBC 4.76 (4.1-5.3) 10^6/u L Hgb 14.4 (11.5-15.3) g/dL Hct 47.2 H (37.0-47.0) % MCV 99.2 H (81-99) fL MCH 30.3 (28.0-34.0) pg MCHC 30.5 (30.0-36.0) g/dL RDW 12.4 (12.1-15.1) % Plt Count 272 (130-400) 10^3/c mm MPV 8.7 (7.4-10.4) fL Neut % (Auto) 62.0 % Lymph % (Auto) 24.9 % [facility] % (Auto) 5.9 % Eos % (Auto) 6.0 % Baso % (Auto) 0.8 % Neut # (Auto) 5.22 (1.8-7.7) 10^3/u L Lymph # (Auto) 2.1 (0.8-4.8) 10^3/u L [facility] [place] # (Auto) 0.5 (0.2-0.9) 10^3/u L Eos # (Auto) 0.5 (0.0-0.8) 10^3/u L Baso # (Auto) 0.1 (0.0-0.1) 10^3/u L Nucleated RBC % (a uto) 0 % Nucleated RBCs # 0.0 /100WBC Sodium 137 (136-145) mmol/L Potassium 3.9 (3.5-5.1) mmol/L Chloride 100 (98-107) mmol/L Carbon Dioxide 28 (22-29) mmol/L Anion Gap 12.9 (5-19) BUN 18 (8-23) mg/dL Creatinine 1.1 H (0.5-0.9) mg/dL GFR Calculation Not Reportable Glucose 105 (65-115) mg/dL Calculated Osmolal ity 286 (285-295) mOsm/k g Calcium 9.0 (8.5-10.5) mg/dL NT-Pro-B Natriuret Pep 260 H (0-125) pg/mL Discharge Plan Discharge Patient Disposition: Home Clinical Impression: Benign essential HTN, [id number] condition Condition: Stable Prescriptions: New clonidine HCl 0.1 mg tablet 0.1 mg PO TID PRN (Reason: hypertension- b/p 180/90) Qty: 14 RF: 0 No Action famotidine 40 mg tablet 40 mg PO BID@899,1999 RF: 0 meclizine 25 mg tablet 25 mg PO DAILY PRN (Reason: Dizziness) RF: 0 ondansetron HCl 4 mg tablet 4 mg PO Q8H PRN (Reason: nausea/vomiting) RF: 0 lansoprazole [Prevacid] 30 mg capsule,delayed release(DR/EC) 30 mg PO DAILY@0900 RF: 0 ropinirole [Requip] 5 mg tablet 5 mg PO DAILY PRN (Reason: Restless Leg(S)) RF: 0 simvastatin 20 mg tablet 20 mg PO .COMPLEX RF: 0 ascorbic acid (vitamin C) 500 mg capsule PO RF: 0 aspirin 325 mg tablet 325 mg PO DAILY RF: 0 cholecalciferol (vitamin D3) 125 mcg (5,000 unit) capsule 125 mcg PO DAILY RF: 0 Lantus U-100 Insulin 100 unit/mL solution 30 unit SUBCUT DAILY RF: 0 insulin lispro [Humalog KwikPen Insulin] 100 unit/mL insulin pen 6 unit SUBCUT TID RF: 0 loratadine [Claritin] 10 mg tablet 10 mg PO DAILY RF: 0 trazodone 100 mg tablet 100 mg PO DAILY RF: 0 buspirone 5 mg tablet 5 mg PO TID PRNRF: 0 cilostazol 50 mg tablet 50 mg PO BID@00,1999 Qty: 180 RF: 3 furosemide 40 mg tablet 40 mg PO DAILY PRN (Reason: edema) Qty: 90 RF: 3 lisinopril 10 mg tablet 10 mg PO DAILY Qty: 30 RF: 6 metoprolol succinate 25 mg tablet extended release 24 hr 25 mg PO DAILY@0900 Qty: 90 RF: 3 ferrous gluconate 325 mg 325 mg PO DAILY@0900 RF: 0 Tylenol 325 mg Tablet 325 - 650 mg PO Q4H PRN (Reason: Pain) RF: 0 Discharge Orders: Discharge ED (Routine); Ordered 07/14/20 Ordered By: Rakesh Devine Referrals: Anderson Kelley MD [Physician] - (pt has echo scheduled wednesday) Discharge Diet: Usual diet Discharge Activity: Resume usual activity Patient Instructions: Chronic Hypertension (ED) Activity Restrictions/Additional Instructions: Follow-up with medical provider as directed. Take medications as prescribed. Return to the ER or your medical provider if condition worsens. Please read and understand discharge instructions. If any questions ask please. 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
[2020-07-14 07:52] VITALS: BP 205/97; PULSE 64; O2SAT 97
[2020-07-14 07:58] VITALS: BP 205/94
[2020-07-14] MEDS: LORazepam 0.5 mg Tablet 0.25 MG PO (07:58)
[2020-07-14] MEDS: cloNIDine 0.1 mg Tablet PO (07:58)
[2020-07-14 08:53] VITALS: BP 176/80; PULSE 59; O2SAT 98
[2020-07-14 09:35] LABS: Basophils # 0.1 10^3/uL (0.0-0.1); Basophils % 0.8 %; Eosinophils # 0.5 10^3/uL (0.0-0.8); Hematocrit 47.2 % (37.0-47.0); Hemoglobin 14.4 g/dL (11.5-15.3); Lymphocytes # 2.1 10^3/uL (0.8-4.8); Lymphocytes % 24.9 %; Mean Corpuscular HGB Conc 30.5 g/dL (30.0-36.0); Mean Corpuscular Hemoglobin 30.3 pg (28.0-34.0); Mean Corpuscular Volume 99.2 fL (81-99); Mean Platelet Volume 8.7 fL (7.4-10.4); Monocytes # 0.5 10^3/uL (0.2-0.9); Monocytes % 5.9 %; Neutrophils # 5.22 10^3/uL (1.8-7.7); Nucleated Red Blood Cells % 0 %; Platelet Count 272 10^3/cmm (130-400); Red Blood Count 4.76 10^6/uL (4.1-5.3); Red Cell Distribution Width 12.4 % (12.1-15.1); White Blood Count 8.4 10^3/uL (4.0-10.0)
[2020-07-14 09:43] VITALS: BP 175/78; PULSE 57; O2SAT 97
[2020-07-14 09:50] LABS: Anion Gap 12.9 (5-19); Blood Urea Nitrogen 18 mg/dL (8-23); Carbon Dioxide 28 mmol/L (22-29); Chloride 100 mmol/L (98-107); Glucose 105 mg/dL (65-115); Osmolality Calculated 286 mOsm/kg (285-295); Potassium 3.9 mmol/L (3.5-5.1); Sodium 137 mmol/L (136-145)
[2020-07-14 10:40] LABS: NT Pro B Type Natriuretic Pept 260 pg/mL (0-125)
[2020-07-14 10:53] VITALS: BP 143/78; PULSE 50; O2SAT 97
== END 2020-07-14 10:54 | disposition home or self-care (01) ==
PROVIDERS: Emergency Provider Nurse Practitioner Family
DX: I10 Essential (primary) hypertension (principal); B94.8 Sequelae of other specified infectious and parasitic diseases; Z79.82 Long term (current) use of aspirin; Z79.4 Long term (current) use of insulin
CPT/HCPCS: 36415; 71045; 80048; 83880; 85025; 93005; 99283

== ENCOUNTER 2020-07-16 13:59 | Outpatient (CLI) | payer MEDICARE, OTHER, SELFPAY ==
--- NOTE | 2020-07-16 14:15 | USCV_ITS ---
Kelsey Tuttle Age: 74 Gender: F : 1945 Exam Date: 07/16/2020 14:53 Ordering Phys: Anderson Kelley MD ([email or web address]) Technologist: Katharine Madrid Exam Location: [facility] [place] Indication: SOB BP: 173 / 74 HR: 61 Rhythm: Other Technical Quality: Adequate MEASUREMENTS (Male / Female) Normal Values 2D ECHO LV Diastolic Diameter PLAX 4.5 cm 4.2 - 5.9 / 3.9 - 5.3 cm LV Systolic Diameter PLAX 3.2 cm LV Chamber Size 4.2 cm IVS Diastolic Thickness 1.3 cm 0.6 - 1.0 / 0.6 - 0.9 cm IVS Systolic Thickness 1.2 cm LVPW Diastolic Thickness 0.9 cm 0.6 - 1.0 / 0.6 - 0.9 cm LVPW Systolic Thickness 1.3 cm RV Chamber Size 2.9 cm LVOT Diameter 2.0 cm LV Ejection Fraction 2D Teich 54.8 % LA Diameter 3.5 cm LA Width 4.9 cm LA Height 5.6 cm RA Width 2.5 cm RA Height 3.6 cm M-MODE LV Diastolic Diameter MM 5.4 cm 4.2 - 5.9 / 3.9 - 5.3 cm LV Systolic Diameter MM 3.6 cm LV Ejection Fraction MM Teich 62.2 % IVS Diastolic Thickness MM 0.9 cm 0.6 - 1.0 / 0.6 - 0.9 cm IVS Systolic Thickness MM 0.9 cm LVPW Diastolic Thickness MM 1.2 cm 0.6 - 1.0 / 0.6 - 0.9 cm LVPW Systolic Thickness MM 1.4 cm Aortic Annulus Diameter 3.3 cm LA Ao Ratio MM 1.2 MV E Point Septal Separation 0.7 cm DOPPLER AV Peak Velocity 139.0 cm/s LVOT Peak Velocity 106.0 cm/s AV Area Cont Eq vti 2.7 cm squared AV Area Cont Eq pk 2.4 cm squared MV Area PHT 2.3 cm squared Mitral E to A Ratio 0.9 MV E' Velocity 63.0 cm/s Mitral E to MV E' Ratio 14.0 Mitral E to LV E' Lateral Ratio 12.0 Mitral E to LV E' Septal Ratio 17.1 TR Peak Velocity 265.0 cm/s TR Peak Gradient 28.1 mmHg TV Peak E Velocity 68.0 cm/s Right Atrial Pressure 3.0 mmHg Pulmonary Artery Systolic Pressu 31.1 mmHg PV Peak Velocity 123.0 cm/s FINDINGS Left Ventricle Normal left ventricular cavity size. Normal left ventricular systolic function. No regional wall motion abnormalities. Left ventricular ejection fraction is estimated at 62 %. Grade I/IV diastolic dysfunction (abnormal relaxation filling pattern), normal to mildly elevated filling pressures. Right Ventricle The right ventricle is normal in size and function. Right Atrium The right atrium is normal in size. Left Atrium Moderately increased left atrial size. Mitral Valve Moderately thickened mitral valve. Mild mitral annular calcification. Moderate mitral valve regurgitation. Aortic Valve Aortic valve sclerosis. No aortic valve stenosis. No aortic valve regurgitation. Tricuspid Valve Structurally normal tricuspid valve without significant stenosis or regurgitation. Pulmonary artery systolic pressure is normal. Pulmonic Valve Structurally normal pulmonic valve without significant stenosis. There is no pulmonic regurgitation. Pericardium Normal pericardium without effusion. Aorta Normal ascending aorta dimension. CONCLUSIONS 1-Normal left ventricular cavity size. Normal left ventricular systolic function. No regional wall motion abnormalities. Left ventricular ejection fraction is estimated at 62 %. Grade I/IV diastolic dysfunction (abnormal relaxation filling pattern), normal to mildly elevated filling pressures. 2-There is no pericardial effusion. 3-No significant valve abnormalities. 4-Pulmonary artery systolic pressure is within normal limits. 5-Right atrial pressure is around 5 mm of mercury. 6-No significant change since the prior echocardiogram study of 04/05/2020. Anderson Kelley MD (Electronically Signed) Final Date: 03 Aug 2020 17:47 S
== END 2020-07-16 14:00 | disposition home or self-care (01) ==
LOC: US 14:00
PROVIDERS: Visit Provider Internal Medicine Cardiovascular Disease
DX: I44.7 Left bundle-branch block, unspecified (principal); R06.02 Shortness of breath
CPT/HCPCS: 93306

== ENCOUNTER → 2020-08-13 16:51 | Outpatient (BNVA) | payer MEDICARE, OTHER, SELFPAY | PROVIDERS: Visit Provider Nurse Practitioner Family | DX: J12.89 Other viral pneumonia (principal); U07.1 COVID-19 | CPT/HCPCS: 87070; 87205 ==

== ENCOUNTER → 2021-09-03 14:02 | Outpatient (BNVA) | payer MEDICARE, OTHER, SELFPAY | PROVIDERS: Visit Provider Internal Medicine Cardiovascular Disease | DX: I12.9 Hypertensive chronic kidney disease with stage 1 through stage 4 chronic kidney disease, or unspecified chronic kidney disease (principal); N18.32 Chronic kidney disease, stage 3b; I73.9 Peripheral vascular disease, unspecified; I83.892 Varicose veins of left lower extremity with other complications; K21.9 Gastro-esophageal reflux disease without esophagitis; I44.7 Left bundle-branch block, unspecified | CPT/HCPCS: 99214 ==

== ENCOUNTER → 2021-12-09 10:04 | Outpatient (BNVA) | payer MEDICARE, OTHER, SELFPAY | PROVIDERS: PCP Family Medicine; Visit Provider Student in an Organized Health Care Education/Training Program | DX: M75.41 Impingement syndrome of right shoulder (principal); M75.81 Other shoulder lesions, right shoulder; M75.21 Bicipital tendinitis, right shoulder | CPT/HCPCS: 20610; 73030; 99203; 99204; J3301 ==

== ENCOUNTER 2021-12-18 11:47 | Outpatient (RCR) | payer MEDICARE, OTHER, SELFPAY | END 2021-12-26 23:59 | disposition home or self-care (01) | LOC: SPT 11:47 | PROVIDERS: PCP Family Medicine; Visit Provider Student in an Organized Health Care Education/Training Program | DX: M75.41 Impingement syndrome of right shoulder (principal) | CPT/HCPCS: 97110; 97161 ==

== ENCOUNTER 2021-12-27 06:00 | Outpatient (RCR) | payer MEDICARE, OTHER, SELFPAY | END 2022-01-26 23:59 | disposition home or self-care (01) | LOC: SPT 06:00 | PROVIDERS: PCP Family Medicine; Visit Provider Student in an Organized Health Care Education/Training Program | DX: R42 Dizziness and giddiness (principal) | CPT/HCPCS: 97110 ==

== ENCOUNTER 2022-01-09 06:00 | Outpatient (RCR) | payer MEDICARE, OTHER, SELFPAY | END 2022-01-26 23:59 | disposition home or self-care (01) | LOC: SPT 06:00 | PROVIDERS: PCP Family Medicine; Visit Provider Family Medicine | DX: R42 Dizziness and giddiness (principal) | CPT/HCPCS: 95992; 97162 ==

== ENCOUNTER → 2022-01-16 11:10 | Outpatient (BNVA) | payer MEDICARE, OTHER, SELFPAY | PROVIDERS: PCP Family Medicine; Visit Provider Family Medicine | DX: J06.9 Acute upper respiratory infection, unspecified (principal) | CPT/HCPCS: 87426 ==

== ENCOUNTER → 2022-01-20 09:58 | Outpatient (BNVA) | payer MEDICARE, OTHER, SELFPAY | PROVIDERS: PCP Family Medicine; Visit Provider Student in an Organized Health Care Education/Training Program | DX: M75.41 Impingement syndrome of right shoulder (principal); M75.81 Other shoulder lesions, right shoulder; M75.21 Bicipital tendinitis, right shoulder | CPT/HCPCS: 99213 ==

== ENCOUNTER 2022-01-21 07:50 | Outpatient (CLI) | payer MEDICARE, OTHER, SELFPAY ==
--- NOTE | 2022-01-21 08:00 | US_ITS ---
WS: [id number] RENAL ULTRASOUND HISTORY: 1.1cm anechoic 1.6cm exophytic lesions in 2019 on us COMPARISON: CT 04/02/2020 TECHNIQUE: 2-D and color Doppler imaging of the kidney submitted. Right kidney: 9.4 cm x 4.0 cm x 4.2 cm. Normal size kidney. Mild increased echogenicity. Cortical cyst upper pole measures 12 x 8 x 10 mm. Th ere is a smaller cyst measuring 10 x 8 x 10 mm. These are both in the upper pole. No solid mass. No c ortical thinning. Left kidney: 10.2 cm x 3.8 cm x 5.6 cm. Mild increased echogenicity. No hydronephrosis or mass. Aorta: Normal. Urinary Bladder: Normal distention. US/US renal BI* [id number] IMPRESSION: 1. Mild chronic medical renal disease. 2. No hydronephrosis. 3. Small cortical cyst x2 upper pole RIGHT kidney. No change since 04/02/2020. N o solid mass.
== END 2022-01-21 07:51 | disposition home or self-care (01) ==
LOC: RAD 07:50
PROVIDERS: PCP Family Medicine; Visit Provider Family Medicine
DX: N28.9 Disorder of kidney and ureter, unspecified (principal); N28.1 Cyst of kidney, acquired
CPT/HCPCS: 76770

== ENCOUNTER → 2022-03-11 14:12 | Outpatient (BNVA) | payer MEDICARE, OTHER, SELFPAY | PROVIDERS: PCP Family Medicine; Visit Provider Internal Medicine Cardiovascular Disease | DX: I12.9 Hypertensive chronic kidney disease with stage 1 through stage 4 chronic kidney disease, or unspecified chronic kidney disease (principal); E11.22 Type 2 diabetes mellitus with diabetic chronic kidney disease; N18.32 Chronic kidney disease, stage 3b; Z79.4 Long term (current) use of insulin; I83.892 Varicose veins of left lower extremity with other complications; I73.9 Peripheral vascular disease, unspecified; K21.9 Gastro-esophageal reflux disease without esophagitis; I44.7 Left bundle-branch block, unspecified | CPT/HCPCS: 99214 ==

== ENCOUNTER → 2022-09-10 14:41 | Outpatient (BNVA) | payer MEDICARE, OTHER, SELFPAY | PROVIDERS: PCP Family Medicine; Visit Provider Internal Medicine Cardiovascular Disease | DX: R07.9 Chest pain, unspecified (principal); I12.9 Hypertensive chronic kidney disease with stage 1 through stage 4 chronic kidney disease, or unspecified chronic kidney disease; N18.32 Chronic kidney disease, stage 3b; I73.9 Peripheral vascular disease, unspecified; I83.892 Varicose veins of left lower extremity with other complications; K21.9 Gastro-esophageal reflux disease without esophagitis | CPT/HCPCS: 93005; 99214 ==

== ENCOUNTER 2022-10-01 07:34 | Outpatient (CLI) | payer MEDICARE, OTHER, SELFPAY ==
[2022-10-01 08:14] VITALS: BMI 40.7
--- NOTE | 2022-10-01 08:14 | ECG_ITS ---
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 Interpretive Statements NAME OF STUDY: LEXISCAN SESTAMIBI STRESS TEST INDICATION: Shortness of Breath with exertion PROCEDURE: At the baseline, the blood pressure was 152/90 mmHg with a heart rate of 62 bpm and oxygen saturation 94 %. The electrocardiogram showed sinus rhythm with PACs with left bundle branch block. The Lexiscan was infused over a period of 20 seconds. A total of 0.4 milligrams of Lexiscan was infused. The stress phase was continued for a total of 5 minutes. Heart rate at the end of the stress phase was 71 bpm with a blood pressure 163/65 mmHg and oxygen saturation 93%. The EKG at the peak infusion revealed no ST-T wave changes. Sestamibi was injected 20 seconds after the Lexiscan infusion. Blood pressure at the end of the recovery phase was 160/71 mmHg, oxygen saturation 86% with a heart rate of 73 beats per minute. CONCLUSION: 1. Nondiagnostic EKG changes with the LexiScan infusion due to baseline left bundle branch block. 2. No LexiScan induced chest pain or cardiac arrhythmia. 3. Baseline hypertension with normal blood pressure and heart rate response. 4. Sestamibi/sestamibi perfusion scan pending; see separate report. Electronically Signed On 10-06-2022 15:27:15 CDT by Debbie Florez M.D. [id number]
--- NOTE | 2022-10-01 08:15 | NMCV_ITS ---
NM dorcas perf SPECT r/s* [id number] Kelsey Tuttle Age: 77 Gender: F : 1945 Exam Date: 10/01/2022 09:11 Ordering Phys: Debbie Florez MD ([email or web address]) Technologist: FORTUNATO Yusuf Exam Location: [facility] Indications: Chest Pain STRESS TEST Please see separate stress test report in [facility] for full findings IMAGE PROTOCOL Rest/Stress 1 Lexiscan Day Radiopharmaceutical Dose (mCi) Administration Site Administered by Rest: Tc-99m 10.8 IV FORTUNATO Yusuf Sestamibi Stress:Tc-99m 32.5 IV FORTUNATO Anderson Sestamibi Rest: 01-Oct-2022 60 Discovery 630 Stress: 01-Oct-2022 30 Discovery 630 0.4mg Lexiscan. Supine position only as patient was unable to lay prone. SPECT RESULTS Technical Quality: Excellent Raw Data Analysis: Normal, Breast attenuation Image Corrections: No attenuation or motion correction applied Summed Stress Score: 3 Summed Rest Score: 0 Summed Difference Score: 3 PERFUSION FINDINGS Small sized perfusion abnormality of mild severity of apical inferior and apical lyons on stress images. FUNCTIONAL RESULTS (calculated via Gated SPECT) Stress Image LV EF (%): 57 Stress EDV (mL):101 TID: 0.93 Stress ESV (mL):43 FUNCTIONAL FINDINGS: The left ventricle is normal in size. Transient Ischemia Dilatation of 0.93. The left ventricular ejection fraction is normal with a value of 57%. There is normal left ventricular wall thickening. IMPRESSIONS 1. Small sized reversible perfusion abnormality of mild severity of apical inferior and apical lyons. This may represent small area of ischemia in left anterior descending artery territory. 2. Overall left ventricular systolic function is normal without regional wall motion abnormalities, LVEF=57%. 3. EKG portion of the study will be reported separately. Debbie Florez MD (Electronically Signed) Final Date: 06 October 2022 15:32 S
[2022-10-01] MEDS: regadenoson 0.4 Mg/5 ml Syringe IVP (10:22)
[2022-10-01 10:30] VITALS: BP 160/71; PULSE 75
== END 2022-10-01 07:35 | disposition home or self-care (01) ==
LOC: CDL 07:35
PROVIDERS: PCP Family Medicine; Visit Provider Internal Medicine Cardiovascular Disease
DX: R06.02 Shortness of breath (principal); I44.7 Left bundle-branch block, unspecified; I10 Essential (primary) hypertension
CPT/HCPCS: 36415; 78452; 93017; 96374; A9500; J2785

== ENCOUNTER 2022-10-09 10:33 | Outpatient (RCR) | payer MEDICARE, OTHER, SELFPAY | END 2022-10-26 23:59 | disposition home or self-care (01) | LOC: SPT 10:33 | PROVIDERS: PCP Family Medicine; Visit Provider Family Medicine | DX: I89.0 Lymphedema, not elsewhere classified (principal) | CPT/HCPCS: 97161; 99214 ==

== ENCOUNTER → 2022-10-09 12:21 | Outpatient (BNVA) | payer MEDICARE, OTHER, SELFPAY | PROVIDERS: PCP Family Medicine; Visit Provider Internal Medicine Cardiovascular Disease | DX: R00.2 Palpitations (principal); R07.9 Chest pain, unspecified | CPT/HCPCS: 93246 ==

== ENCOUNTER 2022-10-27 06:00 | Outpatient (RCR) | payer MEDICARE, OTHER, SELFPAY | END 2022-11-26 23:59 | disposition home or self-care (01) | LOC: SPT 06:00 | PROVIDERS: PCP Family Medicine; Visit Provider Family Medicine | DX: I89.0 Lymphedema, not elsewhere classified (principal) | CPT/HCPCS: 97140 ==

== ENCOUNTER → 2022-11-09 10:45 | Outpatient (BNVA) | payer MEDICARE, OTHER, SELFPAY | PROVIDERS: PCP Family Medicine; Visit Provider Nurse Practitioner Family | DX: R00.2 Palpitations (principal); E11.69 Type 2 diabetes mellitus with other specified complication; E66.9 Obesity, unspecified; Z68.41 Body mass index [BMI] 40.0-44.9, adult; E87.5 Hyperkalemia; Z51.81 Encounter for therapeutic drug level monitoring; I12.9 Hypertensive chronic kidney disease with stage 1 through stage 4 chronic kidney disease, or unspecified chronic kidney disease; N18.32 Chronic kidney disease, stage 3b; E11.22 Type 2 diabetes mellitus with diabetic chronic kidney disease; Z79.4 Long term (current) use of insulin | CPT/HCPCS: 36415; 80053; 84439; 84443; 84481; 99214 ==

== ENCOUNTER 2022-11-20 14:01 | Outpatient (CLI) | payer MEDICARE, OTHER, SELFPAY ==
--- NOTE | 2022-11-20 14:30 | USCV_ITS ---
Kelsey Tuttle Age: 77 Gender: F : 1945 Exam Date: 11/20/2022 14:30 Ordering Phys: Ly Pantoja Technologist: Lino Elkins Exam Location: [facility] [place] Indication: frequent pvc, vt, sve BP: 126 / 66 HR: 54 Rhythm: Sinus Technical Quality: Adequate MEASUREMENTS (Male / Female) Normal Values 2D ECHO LV Ejection Fraction MOD 2C 68.5 % LV Ejection Fraction 2C AL 68.1 % LA Diameter 3.1 cm LA Width 4.0 cm LA Height 5.7 cm RA Width 3.5 cm RA Height 5.0 cm Aorta at Sinotubular Diameter 2.2 cm IVC Diameter 2.4 cm M-MODE Aortic Annulus Diameter 3.1 cm LA Ao Ratio MM 1.0 MV E Point Septal Separation 0.4 cm DOPPLER AV Peak Velocity 137.7 cm/s LVOT Peak Velocity 117.0 cm/s MV Peak Velocity 146.0 cm/s MV Area PHT 3.9 cm squared Mitral E to A Ratio 0.6 MV E' Velocity 35.5 cm/s Mitral E to MV E' Ratio 11.8 Mitral E to LV E' Lateral Ratio 12.7 Mitral E to LV E' Septal Ratio 11.0 TR Peak Velocity 324.0 cm/s TR Peak Gradient 42.0 mmHg TR Mean Velocity 250.1 cm/s TR Mean Gradient 28.0 mmHg TR Velocity Time Integral 82.0 cm Right Atrial Pressure 8.0 mmHg Pulmonary Artery Systolic Pressu 50.0 mmHg PV Peak Velocity 126.7 cm/s RV Acceleration Time 0.1 s RV Ejection Time 0.2 s RV AcT/ET 0.4 FINDINGS Left Ventricle Left ventricle is normal in size. LV systolic function is normal with EF of 55-60%%. No regional wall motion abnormalities are seen. Grade 1 diastolic dysfunction Right Ventricle Normal in size and function Right Atrium Normal in size Left Atrium Dilated Mitral Valve Structurally normal mitral valve. Mild mitral regurgitation Aortic Valve Grossly normal. No significant stenosis or regurgitation. Tricuspid Valve Mild tricuspid regurgitation. Insufficient TR jet to calculate RVSP Pulmonic Valve Mild pulmonic regurgitation. Pericardium Normal Aorta Normal in size IVC Dilated CONCLUSIONS LV systolic function is normal with EF 55 to 60% Grade 1 diastolic dysfunction Left atrial dilation Mild mitral regurgitation Mild tricuspid regurgitation Mild pulmonic regurgitation. Compared to prior echocardiogram from 2020, no significant changes are seen Ezequiel Jones MD (Electronically Signed) Final Date: 07 December 2022 12:31 S
== END 2022-11-20 14:02 | disposition home or self-care (01) ==
LOC: RAD 14:03
PROVIDERS: PCP Family Medicine; Visit Provider Nurse Practitioner Family
DX: I08.3 Combined rheumatic disorders of mitral, aortic and tricuspid valves (principal); R00.2 Palpitations; E11.69 Type 2 diabetes mellitus with other specified complication; R07.9 Chest pain, unspecified
CPT/HCPCS: 93306

== ENCOUNTER → 2022-11-23 11:30 | Outpatient (BNVA) | payer MEDICARE, OTHER, SELFPAY | PROVIDERS: PCP Family Medicine; Visit Provider Nurse Practitioner Family | DX: I47.1 Supraventricular tachycardia (principal); R00.1 Bradycardia, unspecified; I44.7 Left bundle-branch block, unspecified | CPT/HCPCS: 93005; 99213 ==

== ENCOUNTER → 2023-01-08 11:14 | Outpatient (BNVA) | payer MEDICARE, OTHER, SELFPAY | PROVIDERS: PCP Family Medicine; Visit Provider Internal Medicine Cardiovascular Disease | DX: R07.9 Chest pain, unspecified (principal); R00.2 Palpitations; I44.7 Left bundle-branch block, unspecified; I12.9 Hypertensive chronic kidney disease with stage 1 through stage 4 chronic kidney disease, or unspecified chronic kidney disease; E11.22 Type 2 diabetes mellitus with diabetic chronic kidney disease; N18.32 Chronic kidney disease, stage 3b; Z79.4 Long term (current) use of insulin | CPT/HCPCS: 99214 ==

== ENCOUNTER → 2023-02-23 09:52 | Outpatient (BNVA) | payer MEDICARE, OTHER, SELFPAY | PROVIDERS: PCP Family Medicine; Visit Provider Podiatrist Foot & Ankle Surgery | DX: E11.69 Type 2 diabetes mellitus with other specified complication; E66.9 Obesity, unspecified; L60.3 Nail dystrophy; M21.621 Bunionette of right foot; M21.622 Bunionette of left foot; L84 Corns and callosities | CPT/HCPCS: 11056; 11721; 99203 ==

== ENCOUNTER → 2023-06-01 16:05 | Outpatient (BNVA) | payer MEDICARE, OTHER, SELFPAY | PROVIDERS: PCP Family Medicine; Visit Provider Family Medicine | DX: L97.929 Non-pressure chronic ulcer of unspecified part of left lower leg with unspecified severity (principal) | CPT/HCPCS: 87070; 87077; 87184 ==

== ENCOUNTER → 2023-06-09 07:53 | Outpatient (BNVA) | payer MEDICARE, OTHER, SELFPAY | PROVIDERS: PCP Family Medicine; Visit Provider Thoracic Surgery (Cardiothoracic Vascular Surgery) | DX: I96 Gangrene, not elsewhere classified (principal); S81.832D Puncture wound without foreign body, left lower leg, subsequent encounter; X58.XXXD Exposure to other specified factors, subsequent encounter | CPT/HCPCS: 11042; 99213; A6220 ==

== ENCOUNTER → 2023-06-16 08:40 | Outpatient (BNVA) | payer MEDICARE, OTHER, SELFPAY | PROVIDERS: PCP Family Medicine; Visit Provider Thoracic Surgery (Cardiothoracic Vascular Surgery) | DX: L97.821 Non-pressure chronic ulcer of other part of left lower leg limited to breakdown of skin (principal) | CPT/HCPCS: 97597; A6021; A6212 ==

== ENCOUNTER → 2023-06-22 10:32 | Outpatient (BNVA) | payer MEDICARE, OTHER, SELFPAY | PROVIDERS: PCP Family Medicine; Visit Provider Podiatrist Foot & Ankle Surgery | DX: E11.69 Type 2 diabetes mellitus with other specified complication (principal); E66.9 Obesity, unspecified; L60.3 Nail dystrophy; M21.621 Bunionette of right foot; M21.622 Bunionette of left foot; L84 Corns and callosities; Z68.39 Body mass index [BMI] 39.0-39.9, adult; Z79.4 Long term (current) use of insulin | CPT/HCPCS: 11056; 11721 ==

== ENCOUNTER → 2023-06-23 09:52 | Outpatient (BNVA) | payer MEDICARE, OTHER, SELFPAY | PROVIDERS: PCP Family Medicine; Visit Provider Thoracic Surgery (Cardiothoracic Vascular Surgery) | DX: L97.821 Non-pressure chronic ulcer of other part of left lower leg limited to breakdown of skin (principal) | CPT/HCPCS: 97597; A6021; A6212 ==

== ENCOUNTER → 2023-06-30 09:59 | Outpatient (BNVA) | payer MEDICARE, OTHER, SELFPAY | PROVIDERS: PCP Family Medicine; Visit Provider Thoracic Surgery (Cardiothoracic Vascular Surgery) | DX: L97.821 Non-pressure chronic ulcer of other part of left lower leg limited to breakdown of skin (principal) | CPT/HCPCS: 97597; A6021; A6248 ==

== ENCOUNTER → 2023-07-02 10:27 | Outpatient (BNVA) | payer MEDICARE, OTHER, SELFPAY | PROVIDERS: PCP Family Medicine; Visit Provider Nurse Practitioner Family | DX: I12.9 Hypertensive chronic kidney disease with stage 1 through stage 4 chronic kidney disease, or unspecified chronic kidney disease (principal); N18.9 Chronic kidney disease, unspecified; I47.10 Supraventricular tachycardia, unspecified | CPT/HCPCS: 99214 ==

== ENCOUNTER → 2023-07-07 12:58 | Outpatient (BNVA) | payer MEDICARE, OTHER, SELFPAY | PROVIDERS: PCP Family Medicine; Visit Provider Thoracic Surgery (Cardiothoracic Vascular Surgery) | DX: I96 Gangrene, not elsewhere classified (principal); L97.821 Non-pressure chronic ulcer of other part of left lower leg limited to breakdown of skin | CPT/HCPCS: 97597; A6021; A6219 ==

== ENCOUNTER → 2023-07-09 11:08 | Outpatient (BNVA) | payer MEDICARE, OTHER, SELFPAY | PROVIDERS: PCP Family Medicine; Visit Provider Family Medicine | DX: I10 Essential (primary) hypertension (principal); Z79.899 Other long term (current) drug therapy | CPT/HCPCS: 80053; 83735; 83880; 85025 ==

== ENCOUNTER → 2023-07-21 08:05 | Outpatient (BNVA) | payer MEDICARE, OTHER, SELFPAY | PROVIDERS: PCP Family Medicine; Visit Provider Thoracic Surgery (Cardiothoracic Vascular Surgery) | DX: L97.821 Non-pressure chronic ulcer of other part of left lower leg limited to breakdown of skin (principal) | CPT/HCPCS: 97597; A6212 ==

== ENCOUNTER → 2023-07-28 07:57 | Outpatient (BNVA) | payer MEDICARE, OTHER, SELFPAY | PROVIDERS: PCP Family Medicine; Visit Provider Thoracic Surgery (Cardiothoracic Vascular Surgery) | DX: Z09 Encounter for follow-up examination after completed treatment for conditions other than malignant neoplasm (principal); Z87.2 Personal history of diseases of the skin and subcutaneous tissue | CPT/HCPCS: 99212 ==

== ENCOUNTER → 2023-09-21 15:21 | Outpatient (BNVA) | payer MEDICARE, OTHER, SELFPAY | PROVIDERS: PCP Family Medicine; Visit Provider Podiatrist Foot & Ankle Surgery | DX: E11.69 Type 2 diabetes mellitus with other specified complication (principal); E66.9 Obesity, unspecified; L60.3 Nail dystrophy; M21.621 Bunionette of right foot; M21.622 Bunionette of left foot; L84 Corns and callosities; Z79.4 Long term (current) use of insulin; Z68.38 Body mass index [BMI] 38.0-38.9, adult | CPT/HCPCS: 11056; 11721 ==

== ENCOUNTER → 2023-12-07 10:50 | Outpatient (BNVA) | payer MEDICARE, OTHER, SELFPAY | PROVIDERS: PCP Family Medicine; Visit Provider Podiatrist Foot & Ankle Surgery | DX: E11.69 Type 2 diabetes mellitus with other specified complication (principal); E66.9 Obesity, unspecified; L60.3 Nail dystrophy; M21.621 Bunionette of right foot; M21.622 Bunionette of left foot; L84 Corns and callosities; Z79.4 Long term (current) use of insulin; Z68.38 Body mass index [BMI] 38.0-38.9, adult | CPT/HCPCS: 11056; 11721 ==

== ENCOUNTER → 2023-12-15 13:50 | Outpatient (BNVA) | payer MEDICARE, OTHER, SELFPAY | PROVIDERS: PCP Family Medicine; Visit Provider Internal Medicine Cardiovascular Disease | DX: R09.89 Other specified symptoms and signs involving the circulatory and respiratory systems (principal); I73.9 Peripheral vascular disease, unspecified; N18.32 Chronic kidney disease, stage 3b; I47.10 Supraventricular tachycardia, unspecified | CPT/HCPCS: 99214 ==

== ENCOUNTER → 2024-01-17 15:12 | Outpatient (BNVA) | payer MEDICARE, OTHER, SELFPAY | PROVIDERS: PCP Family Medicine; Visit Provider Family Medicine | DX: J02.9 Acute pharyngitis, unspecified (principal) | CPT/HCPCS: 87426 ==

== ENCOUNTER 2024-03-02 15:29 | Outpatient (RCR) | payer MEDICARE, OTHER, SELFPAY | END 2024-03-28 23:59 | disposition home or self-care (01) | LOC: SPT 15:29 | PROVIDERS: PCP Family Medicine; Visit Provider Family Medicine | DX: R42 Dizziness and giddiness (principal) | CPT/HCPCS: 97161 ==

== ENCOUNTER → 2024-03-03 10:16 | Outpatient (BNVA) | payer MEDICARE, OTHER, SELFPAY | PROVIDERS: PCP Family Medicine; Visit Provider Internal Medicine Cardiovascular Disease | DX: I12.9 Hypertensive chronic kidney disease with stage 1 through stage 4 chronic kidney disease, or unspecified chronic kidney disease (principal); E11.22 Type 2 diabetes mellitus with diabetic chronic kidney disease; N18.32 Chronic kidney disease, stage 3b; Z79.4 Long term (current) use of insulin; E11.51 Type 2 diabetes mellitus with diabetic peripheral angiopathy without gangrene | CPT/HCPCS: 99213 ==

== ENCOUNTER → 2024-03-07 11:05 | Outpatient (BNVA) | payer MEDICARE, OTHER, SELFPAY | PROVIDERS: PCP Family Medicine; Visit Provider Podiatrist Foot & Ankle Surgery | DX: E11.8 Type 2 diabetes mellitus with unspecified complications (principal); E11.69 Type 2 diabetes mellitus with other specified complication; E66.9 Obesity, unspecified; L60.3 Nail dystrophy; M21.621 Bunionette of right foot; M21.622 Bunionette of left foot; L84 Corns and callosities; Z68.39 Body mass index [BMI] 39.0-39.9, adult; Z79.4 Long term (current) use of insulin | CPT/HCPCS: 11056; 11721 ==

== ENCOUNTER 2024-03-18 11:09 | Observation (INO) | payer MEDICARE, OTHER, SELFPAY ==
[2024-03-18] VITALS (11 sets, daily range): BP systolic 98–151; BP diastolic 43–98; PULSE 59–71; RESP 15–24; TEMP 36.4–37; O2SAT 93–99; BMI 38.0
--- NOTE | 2024-03-18 11:27 | ECG_ITS ---
[facility] [place] [facility]: 2024-03[facility]18 Pat Name: Kelsey Tuttle Department: Room: Gender: Female Taker Out: : 1945 Requested By: Grover Romero Order Number: [id number] Miguel MD: Ezequiel Jones M.D. Measurements Intervals [place] Rate: 59 P: 50 OR: 151 QRS: -8 QRSD: 144 T: 147 QT: 474 QTc: 472 Interpretive Statements SINUS BRADYCARDIA WITH OCCASIONAL VENTRICULAR PREMATURE COMPLEXES LEFT BUNDLE BRANCH BLOCK [120+ ms QRS DURATION, 80+ ms Q/S IN V1/V2, 85+ ms R IN I/aVL/V5/V6] Compared to ECG 11/23/2022 11:34:25 Ventricular premature complex(es) now present Electronically Signed On 03-20-2024 20:21:53 VP COMMUNICATIONS by Ezequiel Jones M.D. [id number]
--- NOTE | 2024-03-18 11:27 | XRR_ITS ---
PROCEDURE INFORMATION: Exam: XR Chest Exam date and time: 03/18/2024 11:58 AM Age: 78 years old Clinical indication: Cough and dyspnea; Additional info: Dyspnea/cough TECHNIQUE: Imaging protocol: Radiologic exam of the chest. Views: 1 view. COMPARISON: CR XR chest 1V portable [id number] 07/14/2020 8:06 AM FINDINGS: Lungs: Bibasilar reticular opacities that might represent atelectasis versus infiltrates. Pleural spaces: Small bilateral pleural effusions. Heart/Mediastinum: The heart is enlarged. There is a moderate hiatal hernia. Bones/joints: Moderate degenerative disease of bilateral acromioclavicular joints. There are moderate degenerative changes of the glenohumeral joints. XR/XR chest 1V portable [id number] IMPRESSION: Bibasilar reticular opacities that might represent atelectasis versus infiltrates.
--- NOTE | 2024-03-18 11:32 | ED_ITS ---
HPI - Weakness 2 General: Chief complaint: Weakness Stated complaint: low bp Time Seen by Provider: 03/18/24 11:27 History of Present Illness: 78-year-old female presents to the emerg ency room complaining of low blood pressure over the last couple of days. She been monitoring at home. Typically blood pressures running 1 50-1 60 systolic range she had 2 blood pressures last night were below 101 in the 70s 1 in the 80s systolic. On arrival here blood pressure is better. She did really has not felt well. No chest pain no shortness of breath. patient has chronic kidney disease and recently increased her usage of Lasix to every other day regularly instead of just as needed which she had been doing in the past. Associated symptoms: Denies chest pain, chills, dysuria or fever(s) Review of Systems 2 Const: Denies: fever(s) or chills Card: Denies: chest pain Resp: Denies: dyspnea GI: Denies: abdominal pain : Denies: dysuria, urinary frequency or urinary urgency Musc: Denies: neck pain or back pain Skin/Breast: Denies: rash PFSH ED 2 PFSH: Medical History Hypertension Uncontrolled hypertension Restless legs syndrome (RLS) Insomnia Insulin dependent diabetes mellitus Diabetes mellitus type 2 in obese Bile salt-induced diarrhea Subacromial impingement of right shoulder Right rotator cuff tendonitis Biceps tendinitis of right shoulder History of COVID-19 Pneumonia due to 2019-nCoV Chronic kidney disease (CKD) stage G3b/A1, moderately decreased glomerular filtration rate (GFR) between 30-44 mL/min/1.73 square meter and albuminuria creatinine ratio less than 30 mg/g Diabetes mellitus IBS (irritable bowel syndrome) GERD (gastroesophageal reflux disease) Osteoporosis Carotid artery stenosis LBBB (left bundle branch block) Hyperkalemia Hospitalized at [facility] for potassium 6.9, spironolactone discontinued, GFR 36. PVD (peripheral vascular disease) Varicose veins of left lower extremity with other complications Surgical History S/P knee surgery Right S/P cholecystectomy S/P hysterectomy S/P cataract extraction Family History Brother CAD (coronary artery disease) Mother CAD (coronary artery disease) Social History Smoking and tobacco/nicotine status: never used tobacco/nicotine Alcohol intake: never Substance/Drug Use: never Physical Exam 2 Const: COMMON NORMALS: no acute distress GENERAL APPEARANCE: cooperative and comfortable ORIENTATION/CONSCIOUSNESS: Yes awake, Yes oriented to person, Yes oriented to place and Yes oriented to time HENMT: COMMON NORMALS: normocephalic, atraumatic and hearing grossly normal bilaterally HEAD & SCALP: normocephalic and atraumatic Resp: COMMON NORMALS: normal respiratory effort, No retractions, No use of accessory muscles and clear to auscultation bilaterally AUSCULTATION: clear to auscultation bilaterally Cardio: COMMON NORMALS: regular rate, regular rhythm and No murmurs present (Cardio) RATE: regular rate RHYTHM: regular rhythm GI: COMMON NORMALS: Soft to palpation and No hepatosplenomegaly present A USCULTATION: Yes normoactive bowel sounds PALPATION: Yes Soft to palpation, No Tenderness to palpation present (GI), No Guarding due to palpation present (GI) and Yes No hepatosplenomegaly present Extremity: COMMON NORMALS: normal to inspection, capillary refill normal, no clubbing, cyanosis or edema, no calf tenderness and no pedal edema Neuro: SENSORIUM/ORIENTATION: Yes oriented to person, Yes oriented to place and Yes oriented to time Skin: COMMON NORMALS: no rashes or lesions noted GENERAL SKIN EXAM: no rashes or lesions noted Course 2 Vital Signs: Vital signs: Vital Signs Temperature 97.9 F 03/18/24 11:17 Pulse Rate 62 03/18/24 16:00 Respiratory Rate 16 03/18/24 16:00 Blood Pressure 144/61 03/18/24 16:00 Pulse Oximetry 95 03/18/24 16:00 Oxygen Delivery Me thod Room Air 03/18/24 16:00 MDM - Weakness Medical Decision Making Mild acute kidney injury with hypotension. Patient given 500 normal saline blood pressure is improved. Will place on observation hold Lasix gentle IV fluid hydration will need medication adjustment. Discussed with hospitalist orders written Medical Records I reviewed the patient's medical records. Lab Data I reviewed the patient's lab results. 03/18/24 11:57 03/18/24 11:57 Radiology Impressions Chest X-Ray 03/18/24 11:27 IMPRESSION: Bibasilar reticular opacities that might represent atelectasis versus infiltrates. Laboratory Results WBC 5.98 10^3/uL (3.29-11.43) 03/18/24 11:57 RBC 4.23 10^6/uL (3.85-5.65) 03/18/24 11:57 Hgb 13.30 g/dL (11.27-16.99) 03/18/24 11:57 Hct 41.6 % (36-47) 03/18/24 11:57 MCV 98.3 fl (85-98) H 03/18/24 11:57 MCH 31.4 pg (27-33) 03/18/24 11:57 MCHC 32.0 g/dL (30-55) 03/18/24 11:57 RDW 13.3 % (12.1-15.1) 03/18/24 11:57 Plt Count 265 10^3/cmm (157-399) 03/18/24 11:57 MPV 8.7 fL (7.4-10.4) 03/18/24 11:57 Neut % (Auto) 67.6 % 03/18/24 11:57 Lymph % (Auto) 18.9 % 03/18/24 11:57 [place] % (Auto) 5.7 % 03/18/24 11:57 Eos % (Auto) 6.5 % 03/18/24 11:57 Baso % (Auto) 1.0 % 03/18/24 11:57 Neut # (Auto) 4.04 10^3/uL (1.8-7.7) 03/18/24 11:57 Lymph # (Auto) 1.1 10^3/uL (0.8-4.8) 03/18/24 11:57 [place] # (Auto) 0.3 10^3/uL (0.2-0.9) 03/18/24 11:57 Eos # (Auto) 0.4 10^3/uL (0.0-0.8) 03/18/24 11:57 Baso # (Auto) 0.1 10^3/uL (0.0-0.1) 03/18/24 11:57 Nucleated RBC % (auto) 0 % 03/18/24 11:57 Nucleated RBCs # 0.0 /100WBC 03/18/24 11:57 Sodium 136 mmol/L (136-145) 03/18/24 11:57 Potassium 4.1 mmol/L (3.5-5.1) 03/18/24 11:57 Chloride 97 mmol/L (98-107) L 03/18/24 11:57 Carbon Dioxide 27 mmol/L (22-29) 03/18/24 11:57 Anion Gap 16.1 (5-19) 03/18/24 11:57 BUN 33 mg/dL (8-23) H 03/18/24 11:57 Creatinine 3.2 mg/dL (0.5-0.9) H 03/18/24 11:57 GFR Calculation Not Reportable 03/18/24 11:57 Glucose 189 mg/dL (65-115) H 03/18/24 11:57 Calculated Osmolality 294 mOsm/kg (285-295) 03/18/24 11:57 Lactic Acid 1.1 mmol/L (0.5-2.2) 03/18/24 11:57 Calcium 8.7 mg/dL (8.5-10.5) 03/18/24 11:57 Total Bilirubin 0.3 mg/dL (0.15-1.2) 03/18/24 11:57 AST 21 U/L (0-32) 03/18/24 11:57 ALT 19 U/L (0-33) 03/18/24 11:57 Alkaline Phosphatase 61 U/L (35-105) 03/18/24 11:57 NT-Pro-B Natriuret Pep 56 pg/mL (0-450) 03/18/24 11:57 Total Protein 6.7 g/dL (6.6-8.7) 03/18/24 11:57 Albumin 3.9 g/dL (3.5-5.2) 03/18/24 11:57 Globulin 2.8 g/dL (1.3-4.6) 03/18/24 11:57 Procalcitonin 0.14 ng/mL (0-0.5) 03/18/24 11:57 TSH 179.90 uIU/mL (0.27-4.20) H 03/18/24 11:57 Urine Color Yellow (Yellow) 03/18/24 12:23 Urine Appearance Cloudy (CLEAR) A 03/18/24 12:23 Urine pH 5.0 (5-7) 03/18/24 12:23 Ur Specific [place] 1.019 (1.005-1.030) 03/18/24 12:23 Urine Protein 1+ (Negative) A 03/18/24 12:23 Urine Glucose (UA) Negative (Normal) 03/18/24 12:23 Urine Ketones Negative (Negative) 03/18/24 12:23 Urine Blood Negative (Negative) 03/18/24 12:23 Urine Nitrate Negative (Negative) 03/18/24 12:23 Urine Bilirubin Negative (Negative) 03/18/24 12:23 Urine Urobilinogen 1.0 mg/dL (Negative) 03/18/24 12:23 Ur Leukocyte Esterase 1+ (Negative) A 03/18/24 12:23 Urine RBC 0-2 /hpf (0-2) 03/18/24 12:23 Urine WBC 11-20 /hpf (0-5) H 03/18/24 12:23 Ur Squamous Epith Cells 51-100 /hpf (0-5) 03/18/24 12:23 Amorphous Sediment Not Reportable 03/18/24 12:23 Urine Bacteria 3+ /hpf (NONE) H 03/18/24 12:23 Hyaline Casts 9.07 /lpf 03/18/24 12:23 All radiology interpretation(s) finalized by discharge Discharge Plan Discharge Patient Disposition: Placed in Observation Admit Provider: Marcy Vidales Clinical Impression: Acute kidney injury superimposed on chronic kidney disease, Cystitis, Hypotension Condition: Stable Coding Level of Care Code ED Ambulatory Care for Chg Fwd Related Data Home Medications Medication Instructions Recorded Confirmed acetaminophen 325 mg tablet 325 - 650 mg PO Q4H PRN Pain 04/02/20 03/18/24 (Tylenol) cholecalciferol (vitamin D3) 125 125 mcg PO DAILY 06/24/20 03/18/24 mcg (5,000 unit) capsule loperamide 2 mg capsule (Imodium 2 mg PO Q6H PRN Diarrhea 11/28/21 03/18/24 A-D) aspirin 81 mg tablet,delayed 81 mg PO DAILY PRN heart health 09/10/22 03/18/24 release (Adult Low Dose Aspirin) insulin glargine 100 unit/mL 26 unit SUBCUT BID 09/10/22 03/18/24 subcutaneous solution (Lantus U-100 Insulin) insulin lispro 100 unit/mL 16 unit SUBCUT TID 09/10/22 03/18/24 subcutaneous pen (Humalog KwikPen (U-100) Insulin) furosemide 40 mg tablet 40 mg PO .every other day edema 10/09/22 03/18/24 loratadine 10 mg tablet (Allergy 10 mg PO DAILY PRN allergies 10/09/22 03/18/24 Relief (loratadine)) nystatin 100,000 unit/gram topical 1 applic topical BID PRN Skin 10/09/22 03/18/24 powder Irritation semaglutide 0.25 mg or 0.5 mg (2 0.25 mg SUBCUT ONCE 11/23/22 03/18/24 mg/3 mL) subcutaneous pen injector (Ozempic) buspirone 5 mg tablet 5 mg PO BEDTIME 03/18/24 03/18/24 cholestyramine-aspartame 4 gram 4 g PO Q48H PRN prn 03/18/24 03/18/24 oral powder for susp in a packet (Cholestyramine Light) famotidine 20 mg tablet 20 mg PO BID 03/18/24 03/18/24 lansoprazole 30 mg capsule,delayed 30 mg PO DAILY 03/18/24 03/18/24 release ropinirole 0.5 mg tablet 0.5 mg PO DAILY 03/18/24 03/18/24 Previous Rx's Medication Instructions Recorded gabapentin 100 mg capsule 300 mg (3 x 100 mg) PO .qhs #90 06/10/22 caps betamethasone dipropionate 0.05 % 1 applic topical BID PRN skin 02/01/23 topical ointment irritation #45 grams amiodarone 200 mg tablet 100 mg (1/2 x 200 mg) PO DAILY #90 07/15/23 tabs carvedilol 6.25 mg tablet 6.25 mg PO BID #180 tabs 12/15/23 simvastatin 20 mg tablet See Rx Instructions .Route 12/22/23 .COMPLEX #90 tabs cilostazol 50 mg tablet 50 mg PO BID@0900,1999 #180 tabs 02/11/24 lisinopril 20 mg tablet 20 mg PO BID #180 tabs 02/11/24 hydralazine 25 mg tablet 75 mg (3 x 25 mg) PO TID #180 tabs 02/14/24 amlodipine 5 mg tablet 5 mg PO BID #180 tabs 03/03/24 Allergies Allergy/AdvReac Type Severity Reaction Status Date / Time No Known Allergies Allergy Verified 03/07/24 11:09
[2024-03-18 12:02] LABS: Basophils # 0.1 10^3/uL (0.0-0.1); Eosinophils # 0.4 10^3/uL (0.0-0.8); Eosinophils % 6.5 %; Hematocrit 41.6 % (36-47); Lymphocytes # 1.1 10^3/uL (0.8-4.8); Lymphocytes % 18.9 %; Mean Corpuscular Hemoglobin 31.4 pg (27-33); Mean Corpuscular Volume 98.3 fl (85-98); Mean Platelet Volume 8.7 fL (7.4-10.4); Monocytes # 0.3 10^3/uL (0.2-0.9); Monocytes % 5.7 %; Neutrophils # 4.04 10^3/uL (1.8-7.7); Neutrophils % 67.6 %; Nucleated Red Blood Cells % 0 %; Platelet Count 265 10^3/cmm (157-399); Red Blood Count 4.23 10^6/uL (3.85-5.65); Red Cell Distribution Width 13.3 % (12.1-15.1); White Blood Count 5.98 10^3/uL (3.29-11.43)
[2024-03-18 12:19] LABS: Alanine Aminotransferase 19 U/L (0-33); Albumin Level 3.9 g/dL (3.5-5.2); Alkaline Phosphatase 61 U/L (35-105); Anion Gap 16.1 (5-19); Aspartate Amino Transferase 21 U/L (0-32); Blood Urea Nitrogen 33 mg/dL (8-23); Calcium 8.7 mg/dL (8.5-10.5); Carbon Dioxide 27 mmol/L (22-29); Chloride 97 mmol/L (98-107); Creatinine Clr Calc Pharmacy 16.1139; Globulin 2.8 g/dL (1.3-4.6); Glucose 189 mg/dL (65-115); Osmolality Calculated 294 mOsm/kg (285-295); Potassium 4.1 mmol/L (3.5-5.1); Sodium 136 mmol/L (136-145); Total Bilirubin 0.3 mg/dL (0.15-1.2); Total Protein 6.7 g/dL (6.6-8.7)
[2024-03-18 12:39] LABS: Bilirubin Urine Negative (Negative); Blood Urine Negative (Negative); Glucose Urine UA Negative (Normal); Ketones Urine Negative (Negative); Leukocyte Esterase Urine 1+ (Negative); Nitrate Urine Negative (Negative); Protein Urine 1+ (Negative); Specific Gravity, Urine 1.019 (1.005-1.030); Urine Appearance Cloudy (CLEAR); Urine Color Yellow (Yellow)
[2024-03-18 12:43] LABS: Add Urine Microscopic? YES; Bacteria Urine 3+ /hpf; Hyaline Casts Urine 9.07 /lpf; RBC Urine 0-2 /hpf (0-2); Squamous Epithelial Cell Urine 51-100 /hpf (0-5)
[2024-03-18 12:55] LABS: UA Slide Review UA Slide Review Perf
[2024-03-18] MEDS: sodium chloride 0.9% 500 ML 999 ML IV (13:16)
[2024-03-18] MEDS: cefTRIAXone 1,000 mg SDV 1000 MG IVP (13:55)
--- NOTE | 2024-03-18 13:58 | USCV_ITS ---
Kelsey Tuttle Age: 78 Gender: F : 1945 Exam Date: 03/18/2024 17:12 Ordering Phys: Marcy Vidales MD Technologist: Lino Elkins Exam Location: [facility] [place] Indication: stroke BP: 144 / 61 HR: 61 Rhythm: Sinus Technical Quality: Adequate MEASUREMENTS (Male / Female) Normal Values 2D ECHO LV Diastolic Diameter PLAX 3.7 cm 4.2 - 5.9 / 3.9 - 5.3 cm IVS Diastolic Thickness 1.5 cm 0.6 - 1.0 / 0.6 - 0.9 cm IVS Systolic Thickness 1.6 cm LVPW Diastolic Thickness 2.0 cm 0.6 - 1.0 / 0.6 - 0.9 cm LVPW Systolic Thickness 2.3 cm LVOT Diameter 2.0 cm LV Ejection Fraction 2D Teich 61.3 % LV Ejection Fraction MOD 4C 70.8 % LV Ejection Fraction MOD 2C 68.8 % LV Ejection Fraction 2C AL 69.3 % LA Diameter 3.6 cm RA Systolic Volume 4C AL 41.8 ml RA Systolic Volume 4C MOD 43.1 ml LA Sys Volume AL 47.8 cm cubed LA Sys Volume Index AL 22.4 cm cubed/m squared Aorta at Sinotubular Diameter 2.8 cm IVC Diameter 2.0 cm M-MODE LA Ao Ratio MM 1.0 AV Cusp Separation MM 1.5 cm DOPPLER AV Peak Velocity 152.0 cm/s LVOT Peak Velocity 140.0 cm/s AV Area Cont Eq vti 2.3 cm squared AV Area Cont Eq pk 2.9 cm squared MV Peak Velocity 149.0 cm/s MV Area PHT 3.2 cm squared Mitral E to A Ratio 0.6 TV Peak Velocity 333.0 cm/s TR Peak Velocity 352.0 cm/s TR Peak Gradient 49.6 mmHg TR Mean Velocity 277.0 cm/s TR Mean Gradient 33.1 mmHg TR Velocity Time Integral 93.6 cm PV Peak Velocity 154.0 cm/s RV Ejection Time 0.2 s FINDINGS Left Ventricle Left ventricle is normal in size. LV systolic function is normal with EF of 55 to 60%. No regional wall motion abnormalities are seen. Grade 1 diastolic dysfunction Right Ventricle Normal in size and function Right Atrium Normal in size Left Atrium Normal in size Mitral Valve Mild mitral annular calcification. Mild mitral regurgitation. Aortic Valve Structurally normal aortic valve. No significant stenosis or regurgitation. Tricuspid Valve Mild tricuspid regurgitation. Insufficient TR jet to calculate RVSP Pulmonic Valve Not well visualized Pericardium Normal Aorta Normal in size IVC Appears to be dilated CONCLUSIONS LV systolic function is normal with EF of 55-60% Grade 1 diastolic dysfunction Mild mitral regurgitation Mild tricuspid regurgitation IVC appears to be dilated Compared to prior echocardiogram from 10/2022, no significant changes are seen. Ezequiel Jones MD (Electronically Signed) Final Date: 18 March 2024 17:54 S
--- NOTE | 2024-03-18 14:02 | P.HP_ITS ---
Providers/Chief Complaint 2 Primary Care Provider: Desi Nicolas MD Chief Complaint: low bp History of Present Illness Kelsey Tuttle is a 78 year old female With past medical history of hypertension, diabetes mellitus type 2, osteoporosis, carotid artery stenosis, COVID, CKD, GERD, peripheral vascular disease, insomnia, congestive heart failure presented to the hospital today with complaint of low blood pressure over the last few days. Normally her blood pressure ranges between 1 50-1 60 systolic however has had a few blood pressures down to 80s. Denies any chest pain shortness of breath. She does have CKD. In the past she was on Lasix as needed however has not been taking it every day. In the ER she was found to have an TENISHA with creatinine in the 3 range. Normally it is 1. She was orthostatic positive. Urinalysis does still of infection and she was placed on ceftriaxone. She did get a normal saline bolus 500 cc. Medications/Allergies Home Medications Medication Instructions Recorded Confirmed Last Taken Type acetaminophen 325 mg tablet 325 - 650 mg PO Q4H PRN Pain 04/02/20 03/18/24 Unknown History (Tylenol) cholecalciferol (vitamin D3) 125 125 mcg PO DAILY 06/24/20 03/18/24 03/17/24 History mcg (5,000 unit) capsule loperamide 2 mg capsule (Imodium 2 mg PO Q6H PRN Diarrhea 11/28/21 03/18/24 Unknown History A-D) gabapentin 100 mg capsule 300 mg (3 x 100 mg) PO .qhs #90 06/10/22 03/18/24 03/17/24 Rx caps aspirin 81 mg tablet,delayed 81 mg PO DAILY PRN heart health 09/10/22 03/18/24 03/17/24 History release (Adult Low Dose Aspirin) insulin glargine 100 unit/mL 26 unit SUBCUT BID 09/10/22 03/18/24 Unknown History subcutaneous solution (Lantus U-100 Insulin) insulin lispro 100 unit/mL 16 unit SUBCUT TID 09/10/22 03/18/24 Unknown History subcutaneous pen (Humalog KwikPen (U-100) Insulin) furosemide 40 mg tablet 40 mg PO .every other day edema 10/09/22 03/18/24 03/17/24 History loratadine 10 mg tablet (Allergy 10 mg PO DAILY PRN allergies 10/09/22 03/18/24 Unknown History Relief (loratadine)) nystatin 100,000 unit/gram topical 1 applic topical BID PRN Skin 10/09/22 03/18/24 Unknown History powder Irritation semaglutide 0.25 mg or 0.5 mg (2 0.25 mg SUBCUT ONCE 11/23/22 03/18/24 Unknown History mg/3 mL) subcutaneous pen injector (Ozempic) betamethasone dipropionate 0.05 % 1 applic topical BID PRN skin 02/01/23 03/18/24 Unknown Rx topical ointment irritation #45 grams amiodarone 200 mg tablet 100 mg (1/2 x 200 mg) PO DAILY #90 07/15/23 03/18/24 03/18/24 Rx tabs carvedilol 6.25 mg tablet 6.25 mg PO BID #180 tabs 12/15/23 03/18/24 03/18/24 Rx simvastatin 20 mg tablet See Rx Instructions .Route 12/22/23 03/18/24 03/17/24 Rx .COMPLEX #90 tabs cilostazol 50 mg tablet 50 mg PO BID@0900,2000 #180 tabs 02/11/24 03/18/24 03/18/24 Rx lisinopril 20 mg tablet 20 mg PO BID #180 tabs 02/11/24 03/18/24 03/18/24 Rx hydralazine 25 mg tablet 75 mg (3 x 25 mg) PO TID #180 tabs 02/14/24 03/18/24 03/18/24 Rx amlodipine 5 mg tablet 5 mg PO BID #180 tabs 03/03/24 03/18/24 03/18/24 Rx buspirone 5 mg tablet 5 mg PO BEDTIME 03/18/24 03/18/24 03/17/24 History cholestyramine-aspartame 4 gram 4 g PO Q48H PRN prn 03/18/24 03/18/24 03/17/24 History oral powder for susp in a packet (Cholestyramine Light) famotidine 20 mg tablet 20 mg PO BID 03/18/24 03/18/24 03/18/24 History lansoprazole 30 mg capsule,delayed 30 mg PO DAILY 03/18/24 03/18/24 03/18/24 History release ropinirole 0.5 mg tablet 0.5 mg PO DAILY 03/18/24 03/18/24 03/18/24 History Allergies Allergy/AdvReac Type Severity Reaction Status Date / Time No Known Allergies Allergy Verified 03/07/24 11:09 PFSH Acute 2 PFSH: Medical History Hypertension Uncontrolled hypertension Restless legs syndrome (RLS) Insomnia Insulin dependent diabetes mellitus Diabetes mellitus type 2 in obese Bile salt-induced diarrhea Subacromial impingement of right shoulder Right rotator cuff tendonitis Biceps tendinitis of right shoulder History of COVID-19 Pneumonia due to 2019-nCoV Chronic kidney disease (CKD) stage G3b/A1, moderately decreased glomerular filtration rate (GFR) between 30-44 mL/min/1.73 square meter and albuminuria creatinine ratio less than 30 mg/g Diabetes mellitus IBS (irritable bowel syndrome) GERD (gastroesophageal reflux disease) Osteoporosis Carotid artery stenosis LBBB (left bundle branch block) Hyperkalemia Hospitalized at [facility] for potassium 6.9, spironolactone discontinued, GFR 36. PVD (peripheral vascular disease) Varicose veins of left lower extremity with other complications Surgical History S/P knee surgery Right S/P cholecystectomy S/P hysterectomy S/P cataract extraction Family History Brother CAD (coronary artery disease) Mother CAD (coronary artery disease) Social History Smoking and tobacco/nicotine status: never used tobacco/nicotine Alcohol intake: never Substance/Drug Use: never Vitals/I&O/Wt Last Vital Signs Temp 97.9 F 03/18/24 11:17 Pulse 59 L 03/18/24 13:28 Resp 24 H 03/18/24 13:28 BP 130/61 03/18/24 12:51 Pulse Ox 98 03/18/24 13:28 O2 Del Method Room Air 03/18/24 12:51 Weight last 48 hrs Weight 97.522 kg Physical Exam 2 Narrative: General: Alert oriented x3, patient seen laying in bed HEENT: Normocephalic, atraumatic, EOMI, breathing room air Cardio: Regular rate rhythm, normal S1-S2, Respiratory: Clear to auscultation b/l, no wheezes no rhonchi appreciated GI: Abdomen soft, nontender, nondistended, bowel sounds + Behavior: Appropriate and cooperative Extremities: no edema, no cyanosis Data 03/18/24 11:57 03/18/24 11:57 A&P Assessment and plan (1) Hypotension: (2) Diabetes mellitus type 2 in obese: (3) Insulin dependent diabetes mellitus: (4) Acute kidney injury superimposed on chronic kidney disease: (5) Chronic kidney disease (CKD) stage G3b/A1, moderately decreased glomerular filtration rate (GFR) between 30-44 mL/min/1.73 square meter and albuminuria creatinine ratio less than 30 mg/g: Plan #Hypotenstion, fluid responsive #TENISHA on CKD #Congestive heart failure #Type 2 diabetes mellitus #UTI? ? Most likely patient has been over diuresed and dehydrated thereby causing hypotension. That is probably the cause of her TENISHA as well. She does have known CKD. We will hold Lasix and placed on fluids. - urine sample not clean cath in ER. Pt given ceftriaxone 1 g x1 - Recheck urine sample - check echo - hold home lasix - check BNP - hold anti-hypertensives - amiodarone 100, - sliding scale insulin mod dose intensity - hold gabapentin - check tsh - recheck bmp, cbc in am - place on ns 75 cc/hr - check blood cultures, urine culture ? She has received ceftriaxone 1 g x 1. I will hold off on further antibiotics for now. Will repeat UA and urine culture. full code dvt ppx: heaprin subcu bid Attestations 2 Medical Necessity Statement*: Hypotension. TENISHA on CKD. Diagnoses Hypotension I95.9 Diabetes mellitus type 2 in obese E11.69; E66.9 Insulin dependent diabetes mellitus Acute kidney injury superimposed on chronic kidney disease N17.9; N18.9 Chronic kidney disease (CKD) stage G3b/A1, moderately decreased glomerular filtration rate (GFR) between 30-44 mL/min/1.73 square meter and albuminuria creatinine ratio less than 30 mg/g N18.32
[2024-03-18 14:24] LABS: Lactic Sepsis W/Reflex 1.1 mmol/L (0.5-2.2)
--- NOTE | 2024-03-18 14:29 | PC.PHAR ---
Patient states she sees a doctor in [facility] that does he r insulin prescriptions. Patient isn't sure which insulin she uses . She does state she uses one insulin and also Ozempic.
[2024-03-18 14:31] LABS: NT Pro B Type Natriuretic Pept 56 pg/mL (0-450); Procalcitonin 0.14 ng/mL (0-0.5)
[2024-03-18] MEDS: heparin 5,000 unit/mL INJ 1 mL 5000 UNIT SUBCUT (15:20)
--- NOTE | 2024-03-18 15:30 | PC.NURSE ---
pt refused zambrano insertion stating i do not want that for overnight. it's stupid and i can pee in a hat.
[2024-03-18] MEDS: famotidine 20 mg Tablet PO (18:20)
[2024-03-18 21:16] LABS: Glucose Point of Care 138 mg/dL (70-110)
[2024-03-18] MEDS: ropinirole 1 mg Tablet 0.5 MG PO (21:46)
[2024-03-19] VITALS: BP 115/61; PULSE 66; RESP 16; TEMP 36.6; O2SAT 93
[2024-03-19] MEDS: heparin 5,000 unit/mL INJ 1 mL 5000 UNIT SUBCUT ×2 (02:49→13:51)
[2024-03-19 04:00] VITALS: BP 115/55; PULSE 64; RESP 17; TEMP 36.6; O2SAT 92
[2024-03-19 06:09] LABS: Basophils # 0.1 10^3/uL (0.0-0.1); Basophils % 0.8 %; Eosinophils # 0.5 10^3/uL (0.0-0.8); Eosinophils % 6.4 %; Hematocrit 40.2 % (36-47); Lymphocytes # 1.9 10^3/uL (0.8-4.8); Mean Corpuscular HGB Conc 32.3 g/dL (30-55); Mean Corpuscular Hemoglobin 32.1 pg (27-33); Mean Corpuscular Volume 99.3 fl (85-98); Mean Platelet Volume 8.8 fL (7.4-10.4); Monocytes # 0.5 10^3/uL (0.2-0.9); Monocytes % 6.5 %; Neutrophils # 4.33 10^3/uL (1.8-7.7); Neutrophils % 59.9 %; Nucleated Red Blood Cells % 0 %; Platelet Count 249 10^3/cmm (157-399); Red Blood Count 4.05 10^6/uL (3.85-5.65); Red Cell Distribution Width 13.2 % (12.1-15.1); White Blood Count 7.23 10^3/uL (3.29-11.43)
[2024-03-19 06:25] LABS: Glucose Point of Care 108 mg/dL (70-110)
[2024-03-19 06:41] LABS: Anion Gap 16.4 (5-19); Blood Urea Nitrogen 30 mg/dL (8-23); Calcium 8.9 mg/dL (8.5-10.5); Carbon Dioxide 27 mmol/L (22-29); Chloride 96 mmol/L (98-107); Free T4 Free Thyroxine 0.23 ng/dL (0.82-1.77); Glucose 118 mg/dL (65-115); Magnesium 2.2 mg/dL (1.7-2.3); Osmolality Calculated 287 mOsm/kg (285-295); Potassium 4.4 mmol/L (3.5-5.1); Sodium 135 mmol/L (136-145)
[2024-03-19 06:46] LABS: Creatinine Clr Calc Pharmacy 19.8325
[2024-03-19 08:09] VITALS: BP 132/61; PULSE 66; RESP 16; TEMP 36.4; O2SAT 94
[2024-03-19] MEDS: famotidine 20 mg Tablet PO (08:55)
[2024-03-19] MEDS: amiodarone 200 mg Tablet 100 MG PO (08:55)
[2024-03-19] MEDS: pantoprazole DR 40 mg Tablet PO (08:55)
[2024-03-19 09:56] LABS: Bilirubin Urine Negative (Negative); Blood Urine Negative (Negative); Glucose Urine UA Negative (Normal); Ketones Urine Negative (Negative); Leukocyte Esterase Urine Negative (Negative); Nitrate Urine Negative (Negative); Protein Urine Trace (Negative); Specific Gravity, Urine 1.012 (1.005-1.030); Urine Appearance Clear (CLEAR); Urine Color Yellow (Yellow); Urobilinogen Urine 0.2 mg/dL (Negative)
[2024-03-19 10:01] LABS: Bacteria Urine None Seen /hpf; Hyaline Casts Urine 0.81 /lpf; RBC Urine 0-2 /hpf (0-2); WBC Urine 0-5 /hpf (0-5)
[2024-03-19 10:39] LABS: Glucose Point of Care 177 mg/dL (70-110)
[2024-03-19] MEDS: insulin lispro 100 unit/1 mL SUBCUT (11:33)
[2024-03-19 12:16] VITALS: BP 148/67; PULSE 62; RESP 18; TEMP 36.5; O2SAT 91
[2024-03-19 15:36] VITALS: BP 171/77; PULSE 63; RESP 18; TEMP 36.5; O2SAT 94
--- NOTE | 2024-03-19 16:07 | PC.NURSE ---
patient left AMA, in her words she was told she would be discharged today and still has not seen the doctor. Patient's IV was removed and patient signed AMA form and left the unit ambulatory accompanied by her family.
--- NOTE | 2024-03-19 16:58 | P.DS_ITS ---
Discharge Providers Date of Admission: 03/18/24 13:35 Date of Discharge: March 19, 2024 Attending Provider at Admission: Marcy Vidales MD Attending Provider at Discharge: Bharti Jennings MD Primary Care Provider: Desi Nicolas MD Diagnoses at Discharge Discharge Diagnosis (1) Hypotension: Status: Acute (2) Diabetes mellitus type 2 in obese: Status: Chronic (3) Insulin dependent diabetes mellitus: Status: Chronic (4) Acute kidney injury superimposed on chronic kidney disease: Status: Acute (5) Chronic kidney disease (CKD) stage G3b/A1, moderately decreased glomerular filtration rate (GFR) between 30-44 mL/min/1.73 square meter and albuminuria creatinine ratio less than 30 mg/g: Status: Chronic Reason for Visit Reason for Visit: low bp Brief History: Kelsey Tuttle is a 78 year old female With past medical history of hypertension, diabetes mellitus type 2, osteoporosis, carotid artery stenosis, COVID, CKD, GERD, peripheral vascular disease, insomnia, congestive heart failure presented to the hospital today with complaint of low blood pressure over the last few days. Normally her blood pressure ranges between 1 50-1 60 systolic however has had a few blood pressures down to 80s. Denies any chest pain shortness of breath. She does have CKD. In the past she was on Lasix as needed however has not been taking it every day. In the ER she was found to have an TENISHA with creatinine in the 3 range. Normally it is 1. She was orthostatic positive. Urinalysis does still of infection and she was placed on ceftriaxone. She did get a normal saline bolus 500 cc. Hospital Course Hospital Course Patient left AMA before she was seen. According to the nurse, the patient stated felt better, signed the AMA papers and left with their family member. Discharge Data Studies Completed and Pending Completed Studies During Hospitalization Category Date Time Status XR chest 1V portable [id number] Stat Exams 03/18/24 11:27 Completed US echo complete [CV. echo complete* [id number]] Routine Ultrasound 03/18/24 13:58 Completed Pending at discharge Category Date Time Status Blood Culture Routine Lab 03/18/24 15:56 Results Urine Culture Routine Lab 03/18/24 16:40 Received Radiology Impressions Chest X-Ray 03/18/24 11:27 IMPRESSION: Bibasilar reticular opacities that might represent atelectasis versus infiltrates. Laboratory Results WBC 7.23 10^3/uL (3.29-11.43) 03/19/24 05:40 RBC 4.05 10^6/uL (3.85-5.65) 03/19/24 05:40 Hgb 13.00 g/dL (11.27-16.99) 03/19/24 05:40 Hct 40.2 % (36-47) 03/19/24 05:40 MCV 99.3 fl (85-98) H 03/19/24 05:40 MCH 32.1 pg (27-33) 03/19/24 05:40 MCHC 32.3 g/dL (30-55) 03/19/24 05:40 RDW 13.2 % (12.1-15.1) 03/19/24 05:40 Plt Count 249 10^3/cmm (157-399) 03/19/24 05:40 MPV 8.8 fL (7.4-10.4) 03/19/24 05:40 Neut % (Auto) 59.9 % 03/19/24 05:40 Lymph % (Auto) 26.0 % 03/19/24 05:40 [place] % (Auto) 6.5 % 03/19/24 05:40 Eos % (Auto) 6.4 % 03/19/24 05:40 Baso % (Auto) 0.8 % 03/19/24 05:40 Neut # (Auto) 4.33 10^3/uL (1.8-7.7) 03/19/24 05:40 Lymph # (Auto) 1.9 10^3/uL (0.8-4.8) 03/19/24 05:40 [place] # (Auto) 0.5 10^3/uL (0.2-0.9) 03/19/24 05:40 Eos # (Auto) 0.5 10^3/uL (0.0-0.8) 03/19/24 05:40 Baso # (Auto) 0.1 10^3/uL (0.0-0.1) 03/19/24 05:40 Nucleated RBC % (auto) 0 % 03/19/24 05:40 Nucleated RBCs # 0.0 /100WBC 03/19/24 05:40 Sodium 135 mmol/L (136-145) L 03/19/24 05:40 Potassium 4.4 mmol/L (3.5-5.1) 03/19/24 05:40 Chloride 96 mmol/L (98-107) L 03/19/24 05:40 Carbon Dioxide 27 mmol/L (22-29) 03/19/24 05:40 Anion Gap 16.4 (5-19) 03/19/24 05:40 BUN 30 mg/dL (8-23) H 03/19/24 05:40 Creatinine 2.6 mg/dL (0.5-0.9) H 03/19/24 05:40 GFR Calculation Not Reportable 03/19/24 05:40 Glucose 118 mg/dL (65-115) H 03/19/24 05:40 POC Glucose 177 mg/dL (70-110) H 03/19/24 10:35 Calculated Osmolality 287 mOsm/kg (285-295) 03/19/24 05:40 Lactic Acid 1.1 mmol/L (0.5-2.2) 03/18/24 11:57 Calcium 8.9 mg/dL (8.5-10.5) 03/19/24 05:40 Magnesium 2.2 mg/dL (1.7-2.3) 03/19/24 05:40 Total Bilirubin 0.3 mg/dL (0.15-1.2) 03/18/24 11:57 AST 21 U/L (0-32) 03/18/24 11:57 ALT 19 U/L (0-33) 03/18/24 11:57 Alkaline Phosphatase 61 U/L (35-105) 03/18/24 11:57 NT-Pro-B Natriuret Pep 56 pg/mL (0-450) 03/18/24 11:57 Total Protein 6.7 g/dL (6.6-8.7) 03/18/24 11:57 Albumin 3.9 g/dL (3.5-5.2) 03/18/24 11:57 Globulin 2.8 g/dL (1.3-4.6) 03/18/24 11:57 Procalcitonin 0.14 ng/mL (0-0.5) 03/18/24 11:57 TSH 145.20 uIU/mL (0.27-4.20) H 03/19/24 05:40 Free T4 0.23 ng/dL (0.82-1.77) L 03/19/24 05:40 Urine Color Yellow (Yellow) 03/19/24 09:45 Urine Appearance Clear (CLEAR) 03/19/24 09:45 Urine pH 5.0 (5-7) 03/19/24 09:45 Ur Specific [place] 1.012 (1.005-1.030) 03/19/24 09:45 Urine Protein Trace (Negative) A 03/19/24 09:45 Urine Glucose (UA) Negative (Normal) 03/19/24 09:45 Urine Ketones Negative (Negative) 03/19/24 09:45 Urine Blood Negative (Negative) 03/19/24 09:45 Urine Nitrate Negative (Negative) 03/19/24 09:45 Urine Bilirubin Negative (Negative) 03/19/24 09:45 Urine Urobilinogen 0.2 mg/dL (Negative) 03/19/24 09:45 Ur Leukocyte Esterase Negative (Negative) 03/19/24 09:45 Urine RBC 0-2 /hpf (0-2) 03/19/24 09:45 Urine WBC 0-5 /hpf (0-5) 03/19/24 09:45 Ur Squamous Epith Cells 6-10 /hpf (0-5) 03/19/24 09:45 Amorphous Sediment Not Reportable 03/19/24 09:45 Urine Bacteria None seen /hpf (NONE) 03/19/24 09:45 Hyaline Casts 0.81 /lpf 03/19/24 09:45 Vitals Last Vital Signs Temp 97.7 F 03/19/24 15:36 Pulse 63 03/19/24 15:36 Resp 18 03/19/24 15:36 BP 171/77 03/19/24 15:36 Pulse Ox 94 03/19/24 15:36 O2 Del Method Room Air 03/19/24 15:36 Discharge Plan Discharge Patient Disposition: Home Condition: Stable Prescriptions: No Action cholecalciferol (vitamin D3) 125 mcg (5,000 unit) capsule 125 mcg PO DAILY Lantus U-100 Insulin 100 unit/mL solution 26 unit SUBCUT BID insulin lispro [Humalog KwikPen Insulin] 100 unit/mL insulin pen 16 unit SUBCUT TID aspirin [Adult Low Dose Aspirin] 81 mg tablet,delayed release (DR/EC) 81 mg PO DAILY PRN (Reason: heart health) gabapentin 100 mg capsule 300 mg PO .qhs Qty: 90 0RF loratadine [Allergy Relief (loratadine)] 10 mg tablet 10 mg PO DAILY PRN (Reason: allergies) nystatin 100,000 unit/gram powder 1 applic topical BID PRN (Reason: Skin Irritation) loperamide [Imodium A-D] 2 mg capsule 2 mg PO Q6H PRN (Reason: Diarrhea) furosemide 40 mg tablet 40 mg PO .every other day Ozempic 0.25 mg or 0.5 mg (2 mg/3 mL) pen injector 0.25 mg SUBCUT ONCE betamethasone dipropionate 0.05 % ointment 1 applic topical BID PRN (Reason: skin irritation) Qty: 45 0RF carvedilol 6.25 mg tablet 6.25 mg PO BID Qty: 180 3RF Rx Instructions: must administer with a meal/food amlodipine 5 mg tablet 5 mg PO BID Qty: 180 3RF amiodarone 200 mg tablet 100 mg PO DAILY Qty: 90 3RF Rx Instructions: Start in one week 11/16/22 simvastatin 20 mg tablet See Rx Instructions .ROUTE .COMPLEX Qty: 90 0RF Dose Instruction: TAKE 1 TABLET BY MOUTH AT 9 AM ON WEDNESDAY, WEDNESDAY, WEDNESDAY Rx Instructions: TAKE 1 TABLET BY MOUTH AT 9 AM ON WEDNESDAY, WEDNESDAY, WEDNESDAY cilostazol 50 mg tablet 50 mg PO BID@0900,2000 Qty: 180 3RF lisinopril 20 mg tablet 20 mg PO BID Qty: 180 3RF hydralazine 25 mg tablet 75 mg PO TID Qty: 180 1RF acetaminophen [Tylenol] 325 mg Tablet 325 - 650 mg PO Q4H PRN (Reason: Pain) cholestyramine-[place] [Cholestyramine Light] 4 gram Powder In Packet 4 g PO Q48H PRN (Reason: prn) Rx Instructions: administer w/meal; avoid other meds within 1hr before or 4-6hr after dose famotidine 20 mg tablet 20 mg PO BID Rx Instructions: TAKE 1 TABLET BY MOUTH TWICE DAILY lansoprazole 30 mg capsule,delayed release(DR/EC) 30 mg PO DAILY Rx Instructions: TAKE 1 CAPSULE BY MOUTH EVERY DAY buspirone 5 mg tablet 5 mg PO BEDTIME ropinirole 0.5 mg tablet 0.5 mg PO DAILY Rx Instructions: TAKE 1 TABLET BY MOUTH DAILY Discharge Orders: Discharge Order (Routine); Ordered 03/20/24 Ordered By: Bharti Jennings Referrals: Desi Nicolas MD [Primary Care Provider] - Patient Instructions: Opioid Safety Discharge Attestations Time Spent in Discharge Care*: less than 30 min Status at Discharge: Cognitive status at discharge: cognitively intact , Behavioral status at discharge: cooperative , Quality Metrics Clinical Quality Measures [ No reported AMI, CVA or VTE this stay] Coding Level of Care Code Acute Code for Chg Fwd Diagnoses Hypotension I95.9 Diabetes mellitus type 2 in obese E11.69; E66.9 Insulin dependent diabetes mellitus Acute kidney injury superimposed on chronic kidney disease N17.9; N18.9 Chronic kidney disease (CKD) stage G3b/A1, moderately decreased glomerular filtration rate (GFR) between 30-44 mL/min/1.73 square meter and albuminuria c reatinine ratio less than 30 mg/g N18.32
== END 2024-03-19 16:07 | disposition left against medical advice (07) ==
LOC: ER 14:44 → MEDSURG 15:38
PROVIDERS: Admitting Provider Internal Medicine; Emergency Provider Family Medicine; PCP Family Medicine; Visit Provider Internal Medicine
DX: I95.9 Hypotension, unspecified (principal); E11.69 Type 2 diabetes mellitus with other specified complication; E66.9 Obesity, unspecified; Z68.38 Body mass index [BMI] 38.0-38.9, adult; N17.9 Acute kidney failure, unspecified; E11.22 Type 2 diabetes mellitus with diabetic chronic kidney disease; I12.9 Hypertensive chronic kidney disease with stage 1 through stage 4 chronic kidney disease, or unspecified chronic kidney disease; N18.32 Chronic kidney disease, stage 3b; M81.0 Age-related osteoporosis without current pathological fracture; Z86.16 Personal history of COVID-19; K21.9 Gastro-esophageal reflux disease without esophagitis
CPT/HCPCS: 36415; 36416; 71045; 80048; 80053; 81001; 82962; 83605; 83735; 83880; 84145; 84439; 84443; 85025; 87040; 87086; 93005; 93306; 96372; 96374; 99285; G0378; J0696; J1644; J1815; J7030; J7040

== ENCOUNTER → 2024-05-23 14:44 | Outpatient (BNVA) | payer MEDICARE, OTHER, SELFPAY | PROVIDERS: PCP Family Medicine; Referring Provider Family Medicine; Visit Provider Psychiatry & Neurology Neurology | DX: R20.0 Anesthesia of skin (principal); R20.2 Paresthesia of skin; R20.8 Other disturbances of skin sensation | CPT/HCPCS: 95910 ==

== ENCOUNTER → 2024-06-06 09:50 | Outpatient (BNVA) | payer MEDICARE, OTHER, SELFPAY | PROVIDERS: PCP Family Medicine; Visit Provider Podiatrist Foot & Ankle Surgery | DX: E11.8 Type 2 diabetes mellitus with unspecified complications (principal); L60.3 Nail dystrophy; L84 Corns and callosities; E11.69 Type 2 diabetes mellitus with other specified complication; E66.9 Obesity, unspecified; M21.621 Bunionette of right foot; M21.622 Bunionette of left foot; Z79.4 Long term (current) use of insulin | CPT/HCPCS: 11056; 11721; 99213 ==

== ENCOUNTER → 2024-06-21 13:50 | Outpatient (BNVA) | payer MEDICARE, OTHER, SELFPAY | PROVIDERS: PCP Family Medicine; Visit Provider Nurse Practitioner Family | DX: I10 Essential (primary) hypertension (principal); I73.9 Peripheral vascular disease, unspecified | CPT/HCPCS: 99213 ==

== ENCOUNTER → 2024-09-05 09:24 | Outpatient (BNVA) | payer MEDICARE, OTHER, SELFPAY | PROVIDERS: PCP Family Medicine; Visit Provider Podiatrist Foot & Ankle Surgery | DX: E11.69 Type 2 diabetes mellitus with other specified complication (principal); L60.3 Nail dystrophy; L84 Corns and callosities; E66.9 Obesity, unspecified; M21.621 Bunionette of right foot; M21.622 Bunionette of left foot; Z79.4 Long term (current) use of insulin | CPT/HCPCS: 11056; 11721; 99213 ==

== ENCOUNTER → 2024-12-25 13:18 | Outpatient (BNVA) | payer MEDICARE, OTHER, SELFPAY | PROVIDERS: PCP Family Medicine; Visit Provider Podiatrist Foot & Ankle Surgery | DX: E11.69 Type 2 diabetes mellitus with other specified complication (principal); L60.3 Nail dystrophy; L84 Corns and callosities; E11.8 Type 2 diabetes mellitus with unspecified complications; E66.9 Obesity, unspecified; M21.621 Bunionette of right foot; M21.622 Bunionette of left foot; Z79.4 Long term (current) use of insulin | CPT/HCPCS: 11056; 11721 ==

== ENCOUNTER → 2025-03-13 10:45 | Outpatient (BNVA) | payer MEDICARE, OTHER, SELFPAY | PROVIDERS: PCP Family Medicine; Visit Provider Podiatrist Foot & Ankle Surgery | DX: E11.8 Type 2 diabetes mellitus with unspecified complications (principal); L60.3 Nail dystrophy; L84 Corns and callosities; E66.9 Obesity, unspecified; M21.621 Bunionette of right foot; M21.622 Bunionette of left foot; Z79.85 Long-term (current) use of injectable non-insulin antidiabetic drugs | CPT/HCPCS: 11056; 11721 ==